=== PATIENT | female | born 1955 | race Caucasian/White ===

== ENCOUNTER 2021-12-13 12:30 | Inpatient (IN) ==
[2021-12-13 12:35] VITALS: BMI 21.1
[2021-12-13] MEDS ORDERED: NS 1,000 ML IV 1,000 ML IV ONE (12:36)
--- NOTE | 2021-12-13 12:36 | DR.DIZZY ---
HPI Time seen Time Seen by Provider: 12/13/21 12:35 PCP Primary Care Physician: GALILEO Complaint Chief Complaint Doctor Comments: 66 y/o female presents being ill x past 3-4 days. Started with a UTI. Now having frequent nausea, vomiting, diarrhea and g eneralized weakness. Denies fever, chills, abdominal pain. Very weak, can hardly stand up on her own. Chief Complaint:: PATIENT C/O N/V, SEVERE WEAKNESS, FEVER, AND HX OF RECENT UTI. COVID-19 Coronavirus risk:travel/contact w/high risk person: No Has patient experienced Coronavirus symptoms: Yes Coronavirus symptoms experienced: Fever Nurses Notes Reviewed Nurses Notes Review: Yes Source History Provided: Patient and Family Member Mode of Arrival Mode of Arrival: Wheelchair Timing Onset of Chief Complaint: 12/09/21 Context Stroke Symptoms: None PMH PMH Past Medical History: Yes Past Medical History: Migraines Past Surgical History: Yes Surgical History: Hysterectomy Family History History of Family Medical Conditions: Yes Family Medical History: Diabetes Mellitus and Hypertension Social History Does any household member use tobacco: No Alcohol Use: None Do you use any recreational Drugs:: No Lives With: Family Lives Where: Home Travel Risk Coronavirus risk:travel/contact w/high risk person: No Has patient experienced Coronavirus symptoms: Yes Coronavirus symptoms experienced: Fever Infectious screening In the last 2 months have you had wt loss of >10#?: NO Have you had fever, night sweats or hemotysis?: No Have you traveled outside the country in the last 6 months?: No Isolation: Standard ROS Review of Systems Constitutional: Weakness Eyes: No Symptoms Reported ENTM: No Symptoms Reported Respiratoy: No Symptoms Reported Cardiovascular: No Symptoms Reported Gastrointestinal/Abdominal: Diarrhea, Nausea and Vomiting Genitourinary: No Symptoms Reported Neurological: Weakness Musculoskeletal: No Symptoms Reported Integumentary: No Symptoms Reported Hematologic/Lymphatic: No Symptoms Reported Psychiatric: No Symptoms Reported All Other Systems: Reviewed and Negative PE Vital Signs Vitals: Temperature 98.9 F Pulse Rate 89 Respiratory Rate 56 Blood Pressure 89/55 O2 Sat by Pulse Oximetry 93 General General Appearance: Alert and In No Apparent Distress (appears very weak) Eyes Eye exam: PERRL and EOMI ENT ENT Exam: Normal Exam and Mucous Membranes Moist Neck Neck Exam: Normal Inspection Respiratory Respiratory Exam: Normal Lung Sounds Bilat; negative Accessory Muscle Use or Respiratory Distress Cardiovascular Cardiovascular Exam: Regular Rate, Normal Rhythm and Normal Heart Sounds Abdominal Exam Abdominal Exam: Normal Inspection, Normal Bowel Sounds and Soft; negative Tenderness Extremeties Extremities Exam: Normal Inspection; negative Edema Back Back Exam: negative (R) CVA Tenderness or (L) CVA Tenderness Neurologic Neurological Exam: Alert, Oriented X3, CN II-XII Intact and Other (+ weak in all exts.) COURSE Treatment Treatment: 66 y/o female was treated for UTI last week with cephalexin. Having persitent nausea, vomiting and diarrhea, with worsening generalized weakness. w/u initiated. Pt given IV fluids, IV zofran. U/a with TNTC WBCs. Given IV Rocephin. BP remaining low. Additional IV fluids given. Labs show elevated liver enzymes. GB US done, no acute abnormalities. Discussed with her attending, Dr Daigle. Will admit for complaicated UTI, elevated liver enzymes. Ordered HIDA scan with EF per his request. Will continue IV fluids, IV antibiotic. ROR Labs Reviewed Laboratory Results Reviewed?: Yes Result Diagrams: 12/18/21 05:45 12/18/21 05:45 Laboratory: 12/13/21 12:46 Urine,Catheterized Urine Culture - Final 12/13/21 15:45 Blood Blood Culture - Preliminary 12/13/21 15:30 Blood Blood Culture - Preliminary WBC 13.6 X10^3/uL (3.6-10.0) H 12/13/21 12:36 RBC 3.53 X10^6/uL (3.5-5.4) 12/13/21 12:36 Hgb 10.5 g/dL (12.0-16.0) L 12/13/21 12:36 Hct 30.2 % (36.0-47.0) L 12/13/21 12:36 MCV 85.5 fL (80.0-100.0) 12/13/21 12:36 MCH 29.7 pg (27.0-34.0) 12/13/21 12:36 MCHC 34.7 g/dL (33.0-35.0) 12/13/21 12:36 RDW 13.0 % (11.6-16.5) 12/13/21 12:36 Plt Count 210 X10^3/uL (150.0-450.0) 12/13/21 12:36 Plt Count Comment Adequate (ADEQUATE) 12/13/21 12:36 MPV 8.9 fL (7.4-11.0) 12/13/21 12:36 Neut % (Auto) 82.4 % (42.0-75.0) H 12/13/21 12:36 Lymph % (Auto) 3.2 % (21.0-51.0) L 12/13/21 12:36 Pacific % (Auto) 12.6 % (0.0-13.0) 12/13/21 12:36 Eos % (Auto) 0.6 % (0.9-2.9) L 12/13/21 12:36 Baso % (Auto) 1.2 % (0.2-1.0) H 12/13/21 12:36 Neut # (Auto) 11.2 x10^3/uL (2.2-4.8) H 12/13/21 12:36 Lymph # (Auto) 0.4 X10^3/uL (1.3-2.9) L 12/13/21 12:36 Pacific # (Auto) 1.7 x10^3/uL (0.3-0.8) H 12/13/21 12:36 Eos # (Auto) 0.1 x10^3/uL (0.0-0.2) 12/13/21 12:36 Baso # (Auto) 0.2 X10^3/uL (0.0-0.1) H 12/13/21 12:36 Absolute Nucleated RBC 0.0 /100WBC 12/13/21 12:36 Total Counted 100 12/13/21 12:36 Neutrophils % (Manual) 87 % (39-76) H 12/13/21 12:36 Band Neutrophils % 5 % (0-10) 12/13/21 12:36 Lymphocytes % (Manual) 4 % (13-43) L 12/13/21 12:36 Monocytes % (Manual) 4 % (4-9) 12/13/21 12:36 Plt Morphology Comment Normal (NORMAL) 12/13/21 12:36 RBC Morphology Normal (NORMAL) 12/13/21 12:36 Sodium 133 mmol/L (136-145) L 12/13/21 12:36 Corrected Sodium 134 mmol/L (136-145) L 12/13/21 12:36 Potassium 4.1 mmol/L (3.5-5.1) 12/13/21 12:36 Chloride 98 mmol/L (98-107) 12/13/21 12:36 Carbon Dioxide 24.1 mmol/L (21-32) 12/13/21 12:36 BUN 21 mg/dL (7-18) H 12/13/21 12:36 Creatinine 1.78 mg/dL (0.55-1.02) H 12/13/21 12:36 Est GFR (MDRD) Af Amer 37 (>60) L 12/13/21 12:36 Est GFR (MDRD) Non-Af 30 (>60) L 12/13/21 12:36 Glucose 134 mg/dL (65-99) H 12/13/21 12:36 Lactic Acid 1.7 mmol/L (0.4-2.0) 12/13/21 15:45 Calcium 8.6 mg/dL (8.5-10.1) 12/13/21 12:36 Corrected Calcium 9.6 mg/dL (8.5-10.1) 12/13/21 12:36 Total Bilirubin 0.90 mg/dL (0.2-1.0) 12/13/21 12:36 AST 394 Units/L (15-37) H 12/13/21 12:36 ALT 245 Units/L (12-78) H 12/13/21 12:36 Alkaline Phosphatase 260 Units/L (46-116) H 12/13/21 12:36 Total Protein 7.1 g/dL (6.4-8.2) 12/13/21 12:36 Albumin 2.8 g/dL (3.4-5.0) L 12/13/21 12:36 Globulin 4.3 g/dL (2.5-4.5) 12/13/21 12:36 Albumin/Globulin Ratio 0.7 Ratio (1.1-2.1) L 12/13/21 12:36 Lipase 49 Units/L (73-393) L 12/13/21 12:36 Specimen Type Catherized urine 12/13/21 12:46 Urine Color Yellow (YELLOW) 12/13/21 12:46 Urine Appearance Hazy (CLEAR) 12/13/21 12:46 Urine pH 6.5 (5.0 - 8.0) 12/13/21 12:46 Ur Specific [place] Ari 1.010 (1.000-1.030) 12/13/21 12:46 Urine Protein 3+ (NEGATIVE) 12/13/21 12:46 Urine Glucose (UA) Negative (NEGATIVE) 12/13/21 12:46 Urine Ketones 1+ (NEGATIVE) 12/13/21 12:46 Urine Blood 5+ (NEGATIVE) 12/13/21 12:46 Urine Nitrite Negative (NEGATIVE) 12/13/21 12:46 Urine Bilirubin Negative (NEGATIVE) 12/13/21 12:46 Urine Urobilinogen Normal (NORMAL) 12/13/21 12:46 Ur Leukocyte Esterase 3+ (NEGATIVE) 12/13/21 12:46 Urine RBC 5-10 /HPF (0-3) A 12/13/21 12:46 Urine WBC Tntc /HPF (0-5) A 12/13/21 12:46 Ur Squamous Epith Cells Few /HPF (NEGATIVE) 12/13/21 12:46 Urine Bacteria Trace /HPF (NEGATIVE) 12/13/21 12:46 Ur Culture Indicated? Yes/culture set up 12/13/21 12:46 SARS-CoV-2 (PCR) Negative (NEGATIVE) 12/13/21 12:46 Hepatitis A IgM Ab Negative (Negative) 12/13/21 12:36 Hep Bs Antigen Negative (Negative) 12/13/21 12:36 Hep Bs Ag Confirmation TNP 12/13/21 12:36 Hep B Core IgM Ab Negative (Negative) 12/13/21 12:36 Hepatitis C Ab Index <0.02 IV 12/13/21 12:36 Hepatitis C Interp Negative (Negative) 12/13/21 12:36 Hepatitis Interpret See note 12/13/21 12:36 Influenza Type A (PCR) Negative (NEGATIVE) 12/13/21 12:46 Influenza Type B (PCR) Negative (NEGATIVE) 12/13/21 12:46 RSV (PCR) Negative (NEGATIVE) 12/13/21 12:46 Opioid Opioid Risk Tool Age (Willy box if 16-45): No History of Preadolescent Sexual Abuse: No Total: 0 Total Score Risk Category: Low Risk Copyright: Ishmael VELASQUEZ predicting aberrant behaviors Discharge Plan Diagnosis Discharge Problem: Complicated urinary tract infection, Hypotension, Elevated liver enzymes Discharge Plan Patient Disposition: 09 ADMITTED INPATIENT Condition: Stable
[2021-12-13] MEDS ORDERED: ZOFRAN INJ 4 MG VIAL IVP ONE (12:37)
[2021-12-13] MEDS ORDERED: ZOFRAN INJ 4 MG VIAL ONE (12:46)
[2021-12-13] MEDS ORDERED: NS 1,000 ML IV 1,000 ML ONE (12:46)
[2021-12-13 12:50] LABS: BASOPHILS # (AUTO) 0.2 X10^3/uL (0.0-0.1); BASOPHILS % (AUTO) 1.2 % (0.2-1.0); EOSINOPHILS # (AUTO) 0.1 x10^3/uL (0.0-0.2); EOSINOPHILS % (AUTO) 0.6 % (0.9-2.9); HEMATOCRIT 30.2 % (36.0-47.0); HEMOGLOBIN 10.5 g/dL (12.0-16.0); LYMPHOCYTES # (AUTO) 0.4 X10^3/uL (1.3-2.9); LYMPHOCYTES % (AUTO) 3.2 % (21.0-51.0); MEAN CORPUSCULAR HEMOGLOBIN 29.7 pg (27.0-34.0); MEAN CORPUSCULAR HGB CONC 34.7 g/dL (33.0-35.0); MEAN CORPUSCULAR VOLUME 85.5 fL (80.0-100.0); MEAN PLATELET VOLUME 8.9 fL (7.4-11.0); MONOCYTES # (AUTO) 1.7 x10^3/uL (0.3-0.8); MONOCYTES % (AUTO) 12.6 % (0.0-13.0); NEUTROPHILS # (AUTO) 11.2 x10^3/uL (2.2-4.8); NEUTROPHILS % (AUTO) 82.4 % (42.0-75.0); RED BLOOD COUNT 3.53 X10^6/uL (3.5-5.4); WHITE BLOOD COUNT 13.6 X10^3/uL (3.6-10.0)
[2021-12-13 13:03] LABS: ALBUMIN 2.8 g/dL (3.4-5.0); CALCIUM 8.6 mg/dL (8.5-10.1); CARBON DIOXIDE 24.1 mmol/L (21-32); COR CA(FOR HYPOALB) 9.6 mg/dL (8.5-10.1); CREATININE 1.78 mg/dL (0.55-1.02); TOTAL PROTEIN 7.1 g/dL (6.4-8.2)
[2021-12-13 13:27] LABS: BILIRUBIN,URINE NEGATIVE (NEGATIVE); BLOOD/HEMOGLOBIN,URINE 5+ (NEGATIVE); GLUCOSE, URINE NEGATIVE (NEGATIVE); KETONES,URINE 1+ (NEGATIVE); LEUKOCYTE ESTERASE ,URINE 3+ (NEGATIVE); NITRITES,URINE NEGATIVE (NEGATIVE); PH,URINE 6.5 (5.0 - 8.0); PROTEIN,URINE 3+ (NEGATIVE); UROBILINOGEN,URINE NORMAL (NORMAL)
[2021-12-13 13:28] LABS: BAND NEUTROPHILS % 5 % (0-10); PLATELET MORPHOLOGY COMMENT NORMAL (NORMAL)
[2021-12-13 13:31] LABS: APPEARANCE,URINE HAZY (CLEAR); COLOR,URINE YELLOW (YELLOW)
[2021-12-13 13:32] LABS: BACTERIA,URINE TRACE /HPF (NEGATIVE); SQUAMOUS EPITHELIAL CELL,UR FEW /HPF (NEGATIVE)
[2021-12-13] MEDS ORDERED: ROCEPHIN 1 GRAM IV PREMIX 1 G/50 ML IV.SOLN. IV ONE (13:34)
[2021-12-13] MEDS ORDERED: ROCEPHIN VIAL 1 GRAM ONE (13:58)
[2021-12-13] MEDS ORDERED: NS 100 ML IV 100 ML ONE (13:58)
[2021-12-13] MEDS ORDERED: ROCEPHIN VIAL 1 GRAM 1 G in NS 100 ML IV 100 ML IV ONE (14:02)
--- NOTE | 2021-12-13 15:55 | US ---
HISTORYAbdominal pain and weaknessSTUDYGALL BLADDERCOMPARISONNo relevant prior studies available.TECHNIQUEGrayscale and color Doppler transabdominal images were reviewed.FINDINGSLiver: Normal echogenicity. No focal concerning parenchymal lesion identified. Right hepatic lobe measures 15.4 cm.Portal vein is patent with hepatopetal flow.Hepatic arteries patent.Hepatic vein is patent with hepatofugal flow.Gallbladder/Biliary ducts: No echogenic stones or sludge in the gallbladder.Gallbladder wall: 0.21 cmCommon bile duct: 0.41 cmRight kidney: measures: 11.0 x 5.2 x 5.1cm. Normal appearing parenchyma with no hydronephrosis or ureteral calculus. Resistive index measures 0.67. Cortex measures 1.2 cm.Pancreas: Visualized portion of the pancreatic head and body are unremarkable in appearance.IVC: Unremarkable.IMPRESSIONUnremarkable exam.Electronically signed by: Cecil Clifton (Dec 13, 2021 15:53:50)
--- NOTE | 2021-12-13 17:00 | RAD ---
HISTORYCOUGH ; WEAKNESS ^STUDYCHEST, 1 VIEWCOMPARISONFINDINGSThe trachea is midline. The cardiac silhouette is unremarkable. The lungs are clear without focal infiltrate or effusion. The bony thorax is unremarkable.IMPRESSIONNo acute cardiopulmonary findings .Electronically signed by: Kike Suarez (Dec 13, 2021 16:57:57)
[2021-12-13] MEDS: NS 1,000 ML IV 1,000 ML IV SCH (19:45)
[2021-12-13] MEDS: KLONOPIN TAB 1 MG PO SCH (20:43)
[2021-12-13] MEDS: LIPITOR TAB 20 MG PO SCH (20:43)
[2021-12-13] MEDS: NEURONTIN CAP 300 MG PO SCH (20:43)
[2021-12-13] MEDS: TYLENOL 325 MG TAB PO PRN (20:59)
[2021-12-13] MEDS ORDERED: PEPCID TAB 40 MG PO SCH (21:00)
[2021-12-14] MEDS: NS 1,000 ML IV 1,000 ML IV SCH ×3 (03:00→17:59)
[2021-12-14 06:36] LABS: BASOPHILS % (AUTO) 0.2 % (0.2-1.0); EOSINOPHILS % (AUTO) 0.1 % (0.9-2.9); HEMATOCRIT 28.7 % (36.0-47.0); HEMOGLOBIN 9.9 g/dL (12.0-16.0); LYMPHOCYTES # (AUTO) 0.6 X10^3/uL (1.3-2.9); LYMPHOCYTES % (AUTO) 4.3 % (21.0-51.0); MEAN CORPUSCULAR HEMOGLOBIN 29.3 pg (27.0-34.0); MEAN CORPUSCULAR HGB CONC 34.4 g/dL (33.0-35.0); MEAN CORPUSCULAR VOLUME 85.1 fL (80.0-100.0); MEAN PLATELET VOLUME 9.5 fL (7.4-11.0); MONOCYTES # (AUTO) 1.3 x10^3/uL (0.3-0.8); MONOCYTES % (AUTO) 8.7 % (0.0-13.0); NEUTROPHILS # (AUTO) 12.6 x10^3/uL (2.2-4.8); NEUTROPHILS % (AUTO) 86.7 % (42.0-75.0); RED BLOOD COUNT 3.37 X10^6/uL (3.5-5.4); RED CELL DISTRIBUTION WIDTH 12.8 % (11.6-16.5); WHITE BLOOD COUNT 14.6 X10^3/uL (3.6-10.0)
[2021-12-14 06:47] LABS: ALANINE AMINOTRANSFERASE 169 Units/L (12-78); ALBUMIN 2.4 g/dL (3.4-5.0); ALKALINE PHOSPHATASE 221 Units/L (46-116); ASPARTATE AMINO TRANSFERASE 145 Units/L (15-37); BLOOD UREA NITROGEN 25 mg/dL (7-18); CARBON DIOXIDE 20.9 mmol/L (21-32); CHLORIDE 100 mmol/L (98-107); COR CA(FOR HYPOALB) 9.3 mg/dL (8.5-10.1); CREATININE 2.12 mg/dL (0.55-1.02); SODIUM 133 mmol/L (136-145); TOTAL PROTEIN 6.5 g/dL (6.4-8.2); eGFR NON BLACK RACES 25 (>60)
[2021-12-14] MEDS: TYLENOL 325 MG TAB PO PRN ×2 (08:20→20:09)
[2021-12-14] MEDS ORDERED: ROCEPHIN VIAL 1 GRAM 1 G in NS 100 ML IV 100 ML IV SCH (09:00)
[2021-12-14] MEDS: PROTONIX TAB 40 MG PO SCH (09:49)
[2021-12-14] MEDS: NEURONTIN CAP 300 MG PO SCH ×3 (09:49→20:08)
--- NOTE | 2021-12-14 11:51 | NM ---
HISTORY: Abdominal pain. RUQ pain, nausea.EXAM: Nuclear Medicine HIDA ExamTechnique: Multiple scintigraphic images of the abdomen were obtained the intravenous administration of 5.6 mCi of technetium labeled [Choletec]. Following distention of the gallbladder with radiotracer a bottle of Ensure was given. An estimated gallbladder ejection fraction was calculated based on this physiologic response.Findings: Homogeneous uptake of radiotracer is seen throughout the liver. The intrabiliary ductal system is observed normally. The common hepatic and common bile duct grossly appear unremarkable with normal biliary-bowel transit. The gallbladder is observed to fill normally without evidence for acute cholecystitis. After the administration of ensure, however, an abnormally low gallbladder ejection fraction of 10% (normal > 35%) is observed. Although many etiologies (certain medications, cholangitis, pancreatitis, sepsis, etc.) can account for a low gallbladder ejection fraction, in the outpatient setting, the most common etiology is chronic cholecystitis.IMPRESSION:1. Hepatobiliary imaging study demonstrates no evidence for hepatic dysfunction, acute cholecystitis, or biliary leak/biloma formation.2. Low gallbladder ejection fraction of 10%, most likely reflecting chronic cholecystitis, as discussed above.Electronically signed by: FIDELIA DUMONT III (Dec 14, 2021 11:50:01)
[2021-12-14] MEDS: FIORICET TAB PO PRN (12:04)
--- NOTE | 2021-12-14 12:23 | DR.H&P ---
H&P - History & Physical for Day of: H&P Date: 12/13/21 - Chief Complaint Chief Complaint: NAUSEA, VOMITING, DIARRHEA, WEAKNESS - History of Present Illness History of Present Illness: IS A 66 YEAR OLD PATIENT OF OURS. SHE PRESENTED TO THE ER WITH COMPLAINTS OF FREQUENT NAUSEA, VOMITING, DIARRHEA, AND GENERALIZED WEAKNESS FOR THE PAST 3-4 DAYS. SHE WAS RECENTLY DIAGNOSED WITH A URINARY TRACT INFECTION AND WAS PRESCRIBED CEPHALEXIN 500MG TID. SHE STARTED TAKING IT ON 12/07/21. PATIENT REPORTS THAT WEAKNESS HAS WORSENED AND THAT SHE IS BARELY ABLE TO STAND UP ON HER OWN. HER PMH INCLUDES MIGRAINES, GERD, HYPERLIPIDEMIA, INSOMNIA, RESTLESS LEGS. ON ARRIVAL TO THE HOSPITAL, VITALS WERE 101.4-105-20-97%-103/52. LABS WERE OBTAINED. WBC 13.6, RBC 3.53, HGB 10.5, HCT 30.2, PLT COUNT 210, SODIUM 133, POTASSIUM 4.1, CHLORIDE 98, BUN 21, CREATININE 1.78, GLUCOSE 134, CALCIUM 8.6, TOTAL BILI 0.90, AST 394, ALT 245, ALK PHOS 260, TOTAL PROTEIN 7.1, ALBUMIN 2.8, LIPASE 49. URINALYSIS WAS OBTAINED AND REVEALED: WBC TNTC, RBC 5-10, LEUKOCYTES 3+, BACTERIA TRACE. HEPATITS PANEL ORDERED. COVID, INFLUENZA, AND RSV NEGATIVE. BLOOD AND URINE CULTURES WERE SET UP. A CHEST XRAY WAS OBTAINED AND REVEALED: No acute cardiopulmonary findings. GALLBLADDER ULTRASOUND WAS OBTAINED AND WAS UNREMARKABLE. IN THE ER, SHE WAS GIVEN A NORMAL SALINE BOLUS, ZOFRAN 4MG IV X 1 DOSE, ROCEPHIN 1G IV X 1, AND PEPCID 40MG PO X 1. SHE WAS ADMITTED TO THE HOSPITAL FOR FURTHER EVALUATION AND TREATMENT OF UTI, HYPOTENSION, AND ELEVATED LIVER ENZYMES. SHE WAS STARTED ON NORMAL SALINE AT 125 ML/HR, ROCEPHIN 1G IV DAILY, ZOFRAN 4MG IV Q6H PRN, FIORICET 2TABS PO Q8H PRN HEADACHES, AND HER HOME MEDICATIONS WERE RESUMED. WE PLAN TO OBTAIN A HIDA SCAN TODAY. OTHERWISE, WE PLAN TO FOLLOW-UP WITH AM LABS AND CONTINUE TO MONITOR. TIME SPENT ON CLINICAL ASSESSMENT, REVIWING LABS AND IMAGING, DECISION MAKING, AND DOCUMENTATION GREATER THAN 75 MINUTES. - Past Medical History Past Medical History: Dyslipidemia, Migraines, GERD Additional Medical History: RESTLESS LEGS - Past Surgical History Surgical History: Hysterectomy - Family History Family Medical History: Diabetes Mellitus - Social History Does patient currently use any type of tobacco product: No Have you used tobacco products in the last 12 months: No Type of Tobacco Use: None Does any household member use tobacco: No Alcohol Use: None Drug Use: None - Medications Home Medications: sulfamethoxazole [From Bactrim] Allergy (Verified 12/13/21 14:01) trimethoprim [From Bactrim] Allergy (Verified 12/13/21 14:01) CONTINUE taking the following medications alendronate 10 mg tablet 1 tab PO QDAY 12/13/21 [History] alfuzosin 10 mg tablet,extended release 24 hr 1 tab PO QDAY bladder pain 12/13/21 [History] atorvastatin 20 mg tablet 1 tab PO QPM 12/13/21 [History] cephalexin 500 mg capsule 1 cap PO TID 12/13/21 [History] clonazepam 1 mg tablet 1 tab PO QPM 12/13/21 [History] cyclobenzaprine 10 mg tablet 1 tab PO BID 12/13/21 [History] famotidine 40 mg tablet 1 tab PO QPM 12/13/21 [History] gabapentin 300 mg capsule 1 cap PO BID 12/13/21 [History] pantoprazole 40 mg tablet,delayed release 1 tab PO QDAY 12/13/21 [History] propranolol 20 mg tablet 1 tab PO BID 12/13/21 [History] - Review of Systems Constitutional: Fever, Weakness ENT: No Symptoms Reported Respiratory: No Symptoms Reported Gastrointestinal: Nausea, Vomiting, Abdominal Pain Genitourinary: No Symptoms Reported Musculoskeletal: No Symptoms Reported Skin: No Symptoms Reported Neurological: Weakness - Physical Exam Vital Signs: Temperature 98.6 F Pulse Rate [Left Brachial] 103 Pulse Rate 89 Respiratory Rate 20 Blood Pressure [Right Arm] 117/57 Blood Pressure 89/55 O2 Sat by Pulse Oximetry 93 Oriented: Normal Eyes: Normal Ear: Normal Nose: Normal Throat: Normal Respiratory: Diminished Throughout Cardiovascular: Tachycardia : Normal Auscultation: Bowel Sounds: Normal Palpation: Normal Tenderness: Diffuse Skin: Decreased Turgur Musculoskeletal: Normal Psychiatric: Normal Mood Description: Calm Affect: Normal Speech Pattern: Clear - Assessment/Plan (1) Complicated urinary tract infection Status: Acute Plan: ADMIT, NORMAL SALINE AT 125 ML/HR, ROCEPHIN 1G IV DAILY, ZOFRAN 4MG IV Q6H PRN, FIORICET 2TABS PO Q8H PRN HEADACHES, AND HER HOME MEDICATIONS WERE RESUMED. (2) Elevated liver enzymes Status: Acute Plan: OBTAIN HIDA SCAN (3) Hypotension Qualifiers: Hypotension type: unspecified hypotension type Qualified Code(s): I95.9 - Hypotension, unspecified Status: Acute (4) Headache Qualifiers: Headache type: unspecified Headache chronicity pattern: episodic headache Intractability: not intractable Qualified Code(s): R51.9 - Headache, unspecified Status: Acute - Allergies Allergies/Adverse Reactions: Allergies Allergy/AdvReac Type Severity Reaction Status Date / Time sulfamethoxazole Allergy Verified 12/13/21 14:01 [From Bactrim] trimethoprim [From Bactrim] Allergy Verified 12/13/21 14:01
[2021-12-14] MEDS: DEMEROL INJ IVP PRN (15:06)
[2021-12-14] MEDS: KLONOPIN TAB 1 MG PO SCH (20:09)
[2021-12-14] MEDS: LIPITOR TAB 20 MG PO SCH (20:09)
[2021-12-14] MEDS ORDERED: CIPRO IV 200 MG PREMIX* 200 MG/100 ML BAG IV SCH (21:00)
[2021-12-14] MEDS: ZOSYN VIAL 3.375 GRAMS 3.375 G in NS 100 ML IV 100 ML IV SCH ×2 (21:24→21:51)
[2021-12-14] MEDS: PEPCID TAB 20 MG PO SCH ×2 (21:24→21:27)
[2021-12-14] MEDS ORDERED: NS 100 ML IV 100 ML ONE (22:36)
[2021-12-14] MEDS ORDERED: ROCEPHIN VIAL 2 GRAMS ONE (22:36)
[2021-12-14] MEDS: ROCEPHIN VIAL 2 GRAMS 2 G in NS 100 ML IV 100 ML IV SCH (22:56)
--- NOTE | 2021-12-14 23:38 | CT ---
History: aloc HX: None.brSX: hysterectomyExam :BRAIN W/O CONTechnique: Thin section axial ct images of the brain were obtained from the foramen magnum to the vertex without contrast. Sagittal and coronal reconstructions were also performed.Comparison: NoneFindings:The ventricles are within normal limits in size. No midline shift, mass effect or extra-axial fluid collections. No evidence of acute hemorrhage or acute macroinfarction. Mild cortical atrophy compatible with patient's age. Decreased attenuation within the periventricular and subcortical white matter consistent with microvascular ischemic white matter changes.The visualized paranasal sinuses and mastoids are unremarkable. The calvarium is intact.Impression:Mild cortical atrophy with microvascular ischemic white matter changes.No acute intracranial pathology.Electronically signed by: Rajinder Brown (Dec 14, 2021 23:36:49)
[2021-12-15] MEDS: TYLENOL 325 MG TAB PO PRN ×2 (04:03→19:41)
[2021-12-15] MEDS: NS 1,000 ML IV 1,000 ML IV SCH ×3 (04:04→17:20)
[2021-12-15 05:36] LABS: BASOPHILS # (AUTO) 0.1 X10^3/uL (0.0-0.1); BASOPHILS % (AUTO) 0.5 % (0.2-1.0); EOSINOPHILS % (AUTO) 0.3 % (0.9-2.9); HEMATOCRIT 26.2 % (36.0-47.0); MEAN CORPUSCULAR HEMOGLOBIN 28.8 pg (27.0-34.0); MEAN CORPUSCULAR HGB CONC 34.3 g/dL (33.0-35.0); MEAN CORPUSCULAR VOLUME 83.9 fL (80.0-100.0); MONOCYTES # (AUTO) 1.2 x10^3/uL (0.3-0.8); NEUTROPHILS # (AUTO) 14.7 x10^3/uL (2.2-4.8); NEUTROPHILS % (AUTO) 86.2 % (42.0-75.0); RED BLOOD COUNT 3.12 X10^6/uL (3.5-5.4); RED CELL DISTRIBUTION WIDTH 13.6 % (11.6-16.5)
[2021-12-15] MEDS: ZOSYN VIAL 3.375 GRAMS 3.375 G in NS 100 ML IV 100 ML IV SCH ×3 (05:38→21:01)
[2021-12-15 05:51] LABS: LACTIC ACID 0.4 mmol/L (0.4-2.0)
[2021-12-15 05:56] LABS: ALANINE AMINOTRANSFERASE 102 Units/L (12-78); ALKALINE PHOSPHATASE 172 Units/L (46-116); ASPARTATE AMINO TRANSFERASE 67 Units/L (15-37); BLOOD UREA NITROGEN 25 mg/dL (7-18); CALCIUM 7.7 mg/dL (8.5-10.1); CARBON DIOXIDE 18.9 mmol/L (21-32); CHLORIDE 106 mmol/L (98-107); COR CA(FOR HYPOALB) 9.3 mg/dL (8.5-10.1); CREATININE 2.04 mg/dL (0.55-1.02); SODIUM 138 mmol/L (136-145); TOTAL PROTEIN 6.1 g/dL (6.4-8.2); eGFR NON BLACK RACES 26 (>60)
[2021-12-15] MEDS: PROTONIX TAB 40 MG PO SCH (08:29)
[2021-12-15] MEDS: NEURONTIN CAP 300 MG PO SCH ×2 (08:29→20:26)
[2021-12-15] MEDS: ROCEPHIN VIAL 2 GRAMS 2 G in NS 100 ML IV 100 ML IV SCH (08:30)
[2021-12-15] MEDS: RIZATRIPTAN 10 MG SL PRN ×2 (09:34→16:10)
[2021-12-15] MEDS ORDERED: LOVENOX INJ 40 MG SYR SC SCH (10:00)
[2021-12-15] MEDS: LOVENOX INJ 30 MG SYR SC SCH (10:43)
[2021-12-15 12:43] LABS: BILIRUBIN,URINE NEGATIVE (NEGATIVE); BLOOD/HEMOGLOBIN,URINE 4+ (NEGATIVE); GLUCOSE, URINE NEGATIVE (NEGATIVE); KETONES,URINE NEGATIVE (NEGATIVE); LEUKOCYTE ESTERASE ,URINE 3+ (NEGATIVE); NITRITES,URINE NEGATIVE (NEGATIVE); PROTEIN,URINE 2+ (NEGATIVE); UROBILINOGEN,URINE NORMAL (NORMAL)
[2021-12-15 12:59] LABS: APPEARANCE,URINE CLEAR (CLEAR); COLOR,URINE STRAW (YELLOW)
[2021-12-15 13:00] LABS: SQUAMOUS EPITHELIAL CELL,UR FEW /HPF (NEGATIVE)
[2021-12-15 13:01] LABS: BACTERIA,URINE TRACE /HPF (NEGATIVE)
--- NOTE | 2021-12-15 14:01 | CT ---
HISTORYELEVATED LFTS, FEVERSTUDYABDOMEN/PELVIS W/O [id number] images of the abdomen and pelvis were obtained without contrast dose reduction techniques including Automated Exposure Control (AEC) and adjustment of mA and kV were utilized.FINDINGSThere are small layering bilateral pleural effusions with associated basilar atelectasis. No acute osseous abnormality.Evaluation the abdominal pelvic viscera is limited without contrast. Gallbladder appears mildly distended with questionable wall thickening. No radiopaque cholelithiasis can be identified. Within study limitations, the liver, spleen, stomach, pancreas, and adrenals are grossly unremarkable. There is moderate to severe bilateral hydroureteronephrosis to the level of the urinary bladder, which is distended. There are grossly stable small bilateral renal collecting system stones, although no obstructing ureteral calculus is identified. No marked thickening or dilatation of the lower GI tract can be identified. There is bilateral perinephric fat stranding and trace fluid tracking caudally in the retroperitoneum. There is small volume layering pelvic free fluid. No organizing collection identified. The uterus is not identified. The rectum is unremarkable. No bulky adenopathy.IMPRESSIONUrinary bladder distention with bilateral hydroureteronephrosis.Mild gallbladder distention with questionable wall thickening. No radiopaque cholelithiasis is identified. Consider right upper quadrant ultrasound or HIDA if there is concern for acute cholecystitis.Small bilateral pleural effusions, nonobstructing bilateral nephrolithiasis, and other findings as above.Electronically signed by: RAMIRO ALMANZA (Dec 15, 2021 13:59:23)
--- NOTE | 2021-12-15 14:18 | RAD ---
HISTORYCONGESTION, COUGH Relevant Clinical InformationSTUDYCHEST, 1 [id number]/2022.FINDINGSThe trachea is midline. The cardiac silhouette is unremarkable. There are mild nonspecific bibasilar opacities. There is no definite pleural effusion. The bony thorax is unremarkable.IMPRESSIONMild nonspecific basilar opacities which could be atelectasis or potentially infection.Electronically signed by: Kike Suarez (Dec 15, 2021 14:16:24)
[2021-12-15] MEDS: KLONOPIN TAB 1 MG PO SCH (20:26)
[2021-12-15] MEDS: PEPCID TAB 20 MG PO SCH (20:26)
[2021-12-15] MEDS: DEMEROL INJ IVP PRN (20:26)
[2021-12-15] MEDS: LIPITOR TAB 20 MG PO SCH (20:26)
[2021-12-16] MEDS: NS 1,000 ML IV 1,000 ML IV SCH ×3 (02:00→18:05)
[2021-12-16] MEDS: FIORICET TAB PO PRN (03:51)
[2021-12-16] MEDS: ZOSYN VIAL 3.375 GRAMS 3.375 G in NS 100 ML IV 100 ML IV SCH ×3 (05:29→21:06)
[2021-12-16 05:44] LABS: BASOPHILS % (AUTO) 0.4 % (0.2-1.0); EOSINOPHILS # (AUTO) 0.2 x10^3/uL (0.0-0.2); EOSINOPHILS % (AUTO) 1.9 % (0.9-2.9); HEMATOCRIT 24.6 % (36.0-47.0); HEMOGLOBIN 8.5 g/dL (12.0-16.0); LYMPHOCYTES # (AUTO) 1.2 X10^3/uL (1.3-2.9); LYMPHOCYTES % (AUTO) 10.1 % (21.0-51.0); MEAN CORPUSCULAR HGB CONC 34.6 g/dL (33.0-35.0); MEAN CORPUSCULAR VOLUME 83.9 fL (80.0-100.0); MONOCYTES # (AUTO) 1.2 x10^3/uL (0.3-0.8); MONOCYTES % (AUTO) 10.4 % (0.0-13.0); NEUTROPHILS # (AUTO) 9.2 x10^3/uL (2.2-4.8); NEUTROPHILS % (AUTO) 77.2 % (42.0-75.0); RED BLOOD COUNT 2.93 X10^6/uL (3.5-5.4); RED CELL DISTRIBUTION WIDTH 13.9 % (11.6-16.5); WHITE BLOOD COUNT 11.9 X10^3/uL (3.6-10.0)
[2021-12-16 05:51] LABS: BLOOD UREA NITROGEN 13 mg/dL (7-18); CALCIUM 7.6 mg/dL (8.5-10.1); CARBON DIOXIDE 22.7 mmol/L (21-32); CHLORIDE 110 mmol/L (98-107); CREATININE 1.15 mg/dL (0.55-1.02); SODIUM 142 mmol/L (136-145); eGFR NON BLACK RACES 50 (>60)
[2021-12-16] MEDS ORDERED: POTASSIUM CHL 60 MEQ/NS 0.45% 500 ML IV PRN (06:23)
[2021-12-16] MEDS ORDERED: MICRO K EXTEN CAP 10 MEQ PO PRN (06:23)
[2021-12-16] MEDS ORDERED: K-RIDER 10 MEQ/NS 100 ML 10 MEQ/100 ML BAG IV PRN (06:23)
[2021-12-16] MEDS ORDERED: POTASSIUM CHL 40 MEQ/NS 0.45% 500 ML IV PRN (06:23)
[2021-12-16] MEDS: NEURONTIN CAP 300 MG PO SCH ×2 (08:37→20:43)
[2021-12-16] MEDS: PROTONIX TAB 40 MG PO SCH (08:37)
[2021-12-16] MEDS: ROCEPHIN VIAL 2 GRAMS 2 G in NS 100 ML IV 100 ML IV SCH (08:38)
[2021-12-16] MEDS: LOVENOX INJ 30 MG SYR SC SCH (08:42)
[2021-12-16] MEDS ORDERED: LASIX IVP SCH (11:00)
[2021-12-16] MEDS ORDERED: K-DUR TAB 20 MEQ PO SCH (11:00)
--- NOTE | 2021-12-16 11:33 | CT ---
HISTORYSOBSTUDYCTA CHESTCOMPARISONNoneTECHNIQUECT images of the chest were obtained after IV contrast administration per protocol. Automatic exposure control was utilized. MIP images provided and reviewed.FINDINGSUpper abdomen is grossly unremarkable. No acute osseous abnormality.The heart size is normal without significant pericardial thickening or pericardial effusion. No bulky intrathoracic adenopathy identified. The thoracic aorta is normal in caliber. No pulmonary arterial filling defect is identified. There are small layering bilateral pleural effusions with associated partial compressive atelectasis of the lower lobes. There is peribronchial thickening of the lower lobes without significant associated infiltrate. The large airways are patent. No pneumothorax.IMPRESSIONSmall bilateral pleural effusions with partial compressive atelectasis of the lower lobes. Findings of bilateral lower lobe bronchitis.No evidence for PTE.Electronically signed by: RAMIRO ALMANZA (Dec 16, 2021 11:31:35)
[2021-12-16] MEDS: ROBITUSSIN DM PO SCH ×3 (13:46→20:43)
[2021-12-16] MEDS: ZOFRAN INJ 4 MG VIAL IVP PRN (15:26)
[2021-12-16] MEDS: TYLENOL 325 MG TAB PO PRN (16:30)
[2021-12-16] MEDS: PEPCID TAB 20 MG PO SCH (20:43)
[2021-12-16] MEDS: KLONOPIN TAB 1 MG PO SCH (20:43)
[2021-12-16] MEDS: LIPITOR TAB 20 MG PO SCH (20:43)
[2021-12-16 22:25] LABS: ALANINE AMINOTRANSFERASE 83 Units/L (12-78); ALBUMIN 1.8 g/dL (3.4-5.0); ALKALINE PHOSPHATASE 166 Units/L (46-116); ASPARTATE AMINO TRANSFERASE 51 Units/L (15-37); COR CA(FOR HYPOALB) 9.4 mg/dL (8.5-10.1); TOTAL PROTEIN 5.7 g/dL (6.4-8.2)
[2021-12-16] MEDS: DEMEROL INJ IVP PRN (23:30)
[2021-12-17] MEDS: NS 1,000 ML IV 1,000 ML IV SCH ×4 (02:21→18:38)
[2021-12-17] MEDS: ZOSYN VIAL 3.375 GRAMS 3.375 G in NS 100 ML IV 100 ML IV SCH ×3 (05:03→21:50)
[2021-12-17 05:04] LABS: BASOPHILS # (AUTO) 0.1 X10^3/uL (0.0-0.1); BASOPHILS % (AUTO) 0.5 % (0.2-1.0); EOSINOPHILS # (AUTO) 0.3 x10^3/uL (0.0-0.2); EOSINOPHILS % (AUTO) 2.9 % (0.9-2.9); HEMATOCRIT 25.6 % (36.0-47.0); HEMOGLOBIN 8.9 g/dL (12.0-16.0); LYMPHOCYTES # (AUTO) 1.2 X10^3/uL (1.3-2.9); LYMPHOCYTES % (AUTO) 10.8 % (21.0-51.0); MEAN CORPUSCULAR HEMOGLOBIN 28.9 pg (27.0-34.0); MEAN CORPUSCULAR HGB CONC 34.7 g/dL (33.0-35.0); MEAN CORPUSCULAR VOLUME 83.2 fL (80.0-100.0); MEAN PLATELET VOLUME 8.8 fL (7.4-11.0); MONOCYTES # (AUTO) 1.2 x10^3/uL (0.3-0.8); MONOCYTES % (AUTO) 10.8 % (0.0-13.0); NEUTROPHILS # (AUTO) 8.6 x10^3/uL (2.2-4.8); RED BLOOD COUNT 3.08 X10^6/uL (3.5-5.4); RED CELL DISTRIBUTION WIDTH 13.8 % (11.6-16.5); WHITE BLOOD COUNT 11.4 X10^3/uL (3.6-10.0)
[2021-12-17 05:13] LABS: MAGNESIUM 1.3 mg/dL (2.0-2.9)
[2021-12-17 05:30] LABS: BLOOD UREA NITROGEN 12 mg/dL (7-18); CALCIUM 8.2 mg/dL (8.5-10.1); CHLORIDE 105 mmol/L (98-107); CREATININE 1.07 mg/dL (0.55-1.02); SODIUM 140 mmol/L (136-145); eGFR NON BLACK RACES 55 (>60)
[2021-12-17] MEDS: KLOR-CON PO PRN (05:42)
[2021-12-17 05:46] LABS: ALANINE AMINOTRANSFERASE 94 Units/L (12-78); ALKALINE PHOSPHATASE 263 Units/L (46-116); ASPARTATE AMINO TRANSFERASE 82 Units/L (15-37); COR CA(FOR HYPOALB) 9.8 mg/dL (8.5-10.1); TOTAL PROTEIN 6.5 g/dL (6.4-8.2)
[2021-12-17 06:16] LABS: HEPATITIS B SURFACE ANTIGEN Negative (Negative)
[2021-12-17] MEDS: TYLENOL 325 MG TAB PO PRN (08:25)
[2021-12-17] MEDS: ROCEPHIN VIAL 2 GRAMS 2 G in NS 100 ML IV 100 ML IV SCH (08:26)
[2021-12-17] MEDS: PROTONIX TAB 40 MG PO SCH (08:26)
[2021-12-17] MEDS: ROBITUSSIN DM PO SCH ×4 (08:26→20:42)
[2021-12-17] MEDS: LOVENOX INJ 30 MG SYR SC SCH (08:27)
--- NOTE | 2021-12-17 09:02 | RAD ---
HISTORYShortness of BreathSTUDYCHEST x-ray, 1 VIEWCOMPARISONX-ray 12/15/2021FINDINGSProbable CHF and small pleural effusions. Areas of atelectasis are seen bilaterally. Patient is rotated to the right.IMPRESSIONProbable CHF and small pleural effusions.Electronically signed by: Justice Staton (Dec 17, 2021 09:01:12)
[2021-12-17] MEDS: XOPENEX 1.25 MG/3 ML NEBULE NEB SCH ×4 (09:20→20:25)
[2021-12-17] MEDS: CIPRO IV 400 MG PREMIX* 400 MG/200 ML IV.SOLN. IV SCH ×2 (10:01→20:42)
[2021-12-17] MEDS ORDERED: NS 100 ML IV 100 ML ONE (11:35)
[2021-12-17] MEDS: MAGNESIUM SULFATE 1 GRAM/100 mL PREMIX 1 G/100 ML BAG IV PRN ×2 (12:04→13:26)
--- NOTE | 2021-12-17 12:55 | CT ---
HISTORYUTI, ELEVATED WBC, ELEVATED LFTSSTUDYABDOMEN/PELVIS WITH CONCOMPARISONCT abdomen and pelvis 12/15/2021TECHNIQUEMultiple CT axial images of the abdomen and pelvis were obtained without IV contrast. Coronal and sagittal images were reconstructed. Dose reduction techniques included Automated Exposure Control (AEC) and adjustment of mA and kV.FINDINGSHeart size normal. Small bilateral effusions are present associated with atelectasis.Liver, gallbladder, spleen, adrenal glands, and pancreas are unremarkable.Small calcified stones are present in the left and right kidney.Renal enhancement is symmetric with no solid mass. There is no hydronephrosis or significant perirenal edema. Urinary bladder is contracted around a Mcfadden balloon catheter.The hydroureteronephrosis that was present on the prior study has nearly resolved.The bowel is not dilated. There is no wall thickening in the bowel or edema around the bowel.Small volume free fluid noted in the pelvis.Degenerative changes are present in the spine.IMPRESSION1. Resolved hydroureteronephrosis2. Nonobstructing renal calculiElectronically signed by: Eduardo Falcon (Dec 17, 2021 12:53:23)
--- NOTE | 2021-12-17 13:11 | PCM.PROG ---
Progress Note - Progress Note for Day of Date of Exam: 12/17/21 - Subjective Subjective: WAS ADMITTED FOR TREATEMENT OF UTI, ACUTE RENAL FAILURE, ELEVATED LIVER ENZYMES, HYPOTENSION. SHE HAD A GALLBLADDER WORK-UP WHICH REVEALED A LOW EJECTION FRACTION. WE CONSULTED GENERAL SURGERY, HOWEVER, DID NOT FEEL THAT SURGICAL INTERVENTION WAS WARRANTED AT THE PRESENT TIME. HE FELT THAT HER SYMPTOMS WERE PROBABLY RELATED TO UTI AND INFECTION RATHER THAN THE GALLBLADDER. SHE HAS REMAINED FEBRILE OVER THE WEEKEND. TODAY, SHE IS ALERT AND ORIENTED, LYING IN BED ON MORNING ROUNDS. SHE CONTINUES WITH COMPLAINTS OF GENERALIZED WEAKNESS, SHORTNESS OF BREATH, AND SOME ABDOMINAL DISCOMFORT. ON EXAMINATION, HEART WAS REGULAR IN RATE AND RHYTHM. BILATERAL LUNGS WERE NOTED WITH DIMINISHED LUNG SOUNDS THROUGHOUT. ABDOMEN WAS ROUND, SOFT, AND NOTED WITH SUPRAPUBIC TENDERNESS. HYPOACTIVE BOWEL SOUNDS WERE NOTED. NO UPPER OR LOWER EXTREMITY EDEMA WAS NOTED. HER VITALS THIS MORNING WERE: 99.0-100-20-94%-130/76. LABS WERE OBTAINED. WBC 11.4, RBC 3.08, HGB 8.9, HCT 25.6, SODIUM 140, POTASSIUM 3.2, CHLORIDE 105, BUN 12, CREATININE 1.07, GLUCOSE 89, CALCIUM 8.2, AST 82, ALT 94, ALK PHOS 263, CRP 235.40, TOTAL PROTEIN 6.5, ALBUMIN 2.0. BLOOD AND URINE CULTURES WERE PENDING. AN ABDOMEN/PELVIS CT WITHOUT CONTRAST WAS OBTAINED ON FRIDAY. IT REVEALED: Urinary bladder distention with bilateral hydroureteronephrosis. Mild gallbladder distention with questionable wall thickening. No radiopaque cholelithiasis is identified. Small bilateral pleural effusions, nonobstructing bilateral nephrolithiasis. CHEST CTA OBTAINED YESTERDAY AND REVEALED: Small bilateral pleural effusions with partial compressive atelectasis of the lower lobes. Findings of bilateral lower lobe bronchitis. No evidence for PTE. SHE IS CURRENTLY RECEIVING NORMAL SALINE AT 125 ML/HR, ROCEPHIN 2G IV DAILY, ZOSYN 3.375G IV TID, THE POTASSIUM AND MAGNESIUM PROTOCOLS, LOVENOX 30MG SC DAILY, ROBITUSSIN 10ML PO QID, ZOFRAN 4MG IV Q6H PRN, FIORICET 2TABS PO Q8H PRN HEADACHES, AND HER HOME MEDICATIONS WERE RESUMED. TODAY, WE WILL DISCONTINUE THE ROCEPHIN AND START CIPRO 400MG IV Q12H. WE WILL ALSO ADD XOPENEX NEB TX QID. WE WILL REPEAT AN ABDOMEN/PELVIS CT WITH CONTRAST. OTHERWISE, WE PLAN TO FOLLOW-UP WITH AM LABS AND CHEST XRAY AND CONTINUE TO MONITOR. TIME SPENT ON CLINICAL ASSESSMENT, REVIWING LABS AND IMAGING, DECISION MAKING, AND DOCUMENTATION GREATER THAN 45 MINUTES. - Past Medical Family Social History Past Med/Fam/Surg Hx: No changes since H&P Allergies: Allergies sulfamethoxazole [From Bactrim] Allergy (Verified 12/13/21 14:01) trimethoprim [From Bactrim] Allergy (Verified 12/13/21 14:01) - Review of Systems ROS: No change since H&P - Vital Signs and I&O's Vital Signs: Temperature 97.8 F Pulse Rate [Left Brachial] 96 Pulse Rate 89 Respiratory Rate 18 Blood Pressure [Right Arm] 121/67 Blood Pressure 89/55 O2 Sat by Pulse Oximetry 96 Intake and Output: Intake & Output 12/15/21 12/16/21 12/17/21 12/18/21 11:59 11:59 11:59 11:59 Intake Total 3495 / 3495 3787 / 3787 2001 Output Total 2550 / 2550 4825 / 4825 Balance 3495 / 3495 1237 / 1237 -2823 / -2823 - Physical Exam Oriented: Normal Eyes: Normal Ear: Normal Nose: Normal Throat: Normal Respiratory: Generalized, Diminished Cardiovascular: Normal : Normal Auscultation: Bowel Sounds: Decreased Palpation: Normal Tenderness: Suprapubic Skin: Decreased Turgur Musculoskeletal: Normal Psychiatric: Normal Mood Description: Calm Affect: Normal Speech Pattern: Clear - Laboratory and Diagnostics Result Diagrams: 12/17/21 04:35 12/17/21 04:35 Labs: 12/15/21 12:00 Urine,Catheterized Urine Culture - Final 12/13/21 15:45 Blood Blood Culture - Preliminary 12/13/21 15:30 Blood Blood Culture - Preliminary 12/13/21 12:46 Urine,Catheterized Urine Culture - Preliminary Laboratory WBC 11.4 X10^3/uL (3.6-10.0) H 12/17/21 04:35 RBC 3.08 X10^6/uL (3.5-5.4) L 12/17/21 04:35 Hgb 8.9 g/dL (12.0-16.0) L 12/17/21 04:35 Hct 25.6 % (36.0-47.0) L 12/17/21 04:35 MCV 83.2 fL (80.0-100.0) 12/17/21 04:35 MCH 28.9 pg (27.0-34.0) 12/17/21 04:35 MCHC 34.7 g/dL (33.0-35.0) 12/17/21 04:35 RDW 13.8 % (11.6-16.5) 12/17/21 04:35 Plt Count 215 X10^3/uL (150.0-450.0) 12/17/21 04:35 Plt Count Comment Adequate (ADEQUATE) 12/13/21 12:36 MPV 8.8 fL (7.4-11.0) 12/17/21 04:35 Neut % (Auto) 75.0 % (42.0-75.0) 12/17/21 04:35 Lymph % (Auto) 10.8 % (21.0-51.0) L 12/17/21 04:35 [place] % (Auto) 10.8 % (0.0-13.0) 12/17/21 04:35 Eos % (Auto) 2.9 % (0.9-2.9) 12/17/21 04:35 Baso % (Auto) 0.5 % (0.2-1.0) 12/17/21 04:35 Neut # (Auto) 8.6 x10^3/uL (2.2-4.8) H 12/17/21 04:35 Lymph # (Auto) 1.2 X10^3/uL (1.3-2.9) L 12/17/21 04:35 [place] # (Auto) 1.2 x10^3/uL (0.3-0.8) H 12/17/21 04:35 Eos # (Auto) 0.3 x10^3/uL (0.0-0.2) H 12/17/21 04:35 Baso # (Auto) 0.1 X10^3/uL (0.0-0.1) 12/17/21 04:35 Absolute Nucleated RBC 0.0 /100WBC 12/17/21 04:35 Total Counted 100 12/13/21 12:36 Neutrophils % (Manual) 87 % (39-76) H 12/13/21 12:36 Band Neutrophils % 5 % (0-10) 12/13/21 12:36 Lymphocytes % (Manual) 4 % (13-43) L 12/13/21 12:36 Monocytes % (Manual) 4 % (4-9) 12/13/21 12:36 Plt Morphology Comment Normal (NORMAL) 12/13/21 12:36 RBC Morphology Normal (NORMAL) 12/13/21 12:36 D-Dimer 6.46 ug/ml (0.0-0.57) H 12/15/21 13:10 Sodium 140 mmol/L (136-145) 12/17/21 04:35 Corrected Sodium TNP 12/17/21 04:35 Potassium 3.2 mmol/L (3.5-5.1) L 12/17/21 04:35 Chloride 105 mmol/L (98-107) 12/17/21 04:35 Carbon Dioxide 24.0 mmol/L (21-32) 12/17/21 04:35 BUN 12 mg/dL (7-18) 12/17/21 04:35 Creatinine 1.07 mg/dL (0.55-1.02) H 12/17/21 04:35 Est GFR (MDRD) Af Amer > 60 (>60) 12/17/21 04:35 Est GFR (MDRD) Non-Af 55 (>60) L 12/17/21 04:35 Glucose 89 mg/dL (65-99) 12/17/21 04:35 Lactic Acid 0.4 mmol/L (0.4-2.0) 12/15/21 05:21 Calcium 8.2 mg/dL (8.5-10.1) L 12/17/21 04:35 Corrected Calcium 9.8 mg/dL (8.5-10.1) 12/17/21 04:35 Magnesium 1.3 mg/dL (2.0-2.9) L 12/17/21 04:35 Total Bilirubin 0.50 mg/dL (0.2-1.0) 12/17/21 04:35 AST 82 Units/L (15-37) H 12/17/21 04:35 ALT 94 Units/L (12-78) H 12/17/21 04:35 Alkaline Phosphatase 263 Units/L (46-116) H 12/17/21 04:35 Ammonia < 10 umol/L (11-32) L 12/14/21 07:26 Creatine Kinase 477 Units/L (26-192) H 12/15/21 13:10 Troponin I High Sens 27.3 ng/L (4.0-60.0) 12/15/21 13:10 C-Reactive Protein 235.40 mg/L (0-3.0) H 12/17/21 04:35 Total Protein 6.5 g/dL (6.4-8.2) 12/17/21 04:35 Albumin 2.0 g/dL (3.4-5.0) L 12/17/21 04:35 Globulin 4.5 g/dL (2.5-4.5) 12/17/21 04:35 Albumin/Globulin Ratio 0.4 Ratio (1.1-2.1) L 12/17/21 04:35 Lipase 49 Units/L (73-393) L 12/13/21 12:36 Specimen Type Catherized urine 12/15/21 12:00 Urine Color Straw (YELLOW) 12/15/21 12:00 Urine Appearance Clear (CLEAR) 12/15/21 12:00 Urine pH 6.0 (5.0 - 8.0) 12/15/21 12:00 Ur Specific [place] 1.010 (1.000-1.030) 12/15/21 12:00 Urine Protein 2+ (NEGATIVE) 12/15/21 12:00 Urine Glucose (UA) Negative (NEGATIVE) 12/15/21 12:00 Urine Ketones Negative (NEGATIVE) 12/15/21 12:00 Urine Blood 4+ (NEGATIVE) 12/15/21 12:00 Urine Nitrite Negative (NEGATIVE) 12/15/21 12:00 Urine Bilirubin Negative (NEGATIVE) 12/15/21 12:00 Urine Urobilinogen Normal (NORMAL) 12/15/21 12:00 Ur Leukocyte Esterase 3+ (NEGATIVE) 12/15/21 12:00 Urine RBC 3-5 /HPF (0-3) A 12/15/21 12:00 Urine WBC Tntc /HPF (0-5) A 12/15/21 12:00 Ur Squamous Epith Cells Few /HPF (NEGATIVE) 12/15/21 12:00 Urine Bacteria Trace /HPF (NEGATIVE) 12/15/21 12:00 Ur Culture Indicated? Yes/culture set up 12/15/21 12:00 SARS-CoV-2 (PCR) Negative (NEGATIVE) 12/13/21 12:46 Hepatitis A IgM Ab Negative (Negative) 12/13/21 12:36 Hep Bs Antigen Negative (Negative) 12/13/21 12:36 Hep Bs Ag Confirmation TNP 12/13/21 12:36 Hep B Core IgM Ab Negative (Negative) 12/13/21 12:36 Hepatitis C Ab Index <0.02 IV 12/13/21 12:36 Hepatitis C Interp Negative (Negative) 12/13/21 12:36 Hepatitis Interpret See note 12/13/21 12:36 Influenza Type A (PCR) Negative (NEGATIVE) 12/13/21 12:46 Influenza Type B (PCR) Negative (NEGATIVE) 12/13/21 12:46 RSV (PCR) Negative (NEGATIVE) 12/13/21 12:46 - Plan (1) Complicated urinary tract infection Status: Acute Plan: NORMAL SALINE AT 125 ML/HR, CIPRO 400MG IV Q12H, ZOSYN 3.375G IV TID, THE POTASSIUM AND MAGNESIUM PROTOCOLS, LOVENOX 30MG SC DAILY, ROBITUSSIN 10ML PO QID, ZOFRAN 4MG IV Q6H PRN, FIORICET 2TABS PO Q8H PRN HEADACHES, AND HER HOME MEDICATIONS WERE RESUMED. (2) Acute bronchitis Status: Acute Qualifiers: Bronchitis organism: unspecified organism Qualified Code(s): J20.9 - Acute bronchitis, unspecified (3) Pleural effusion Status: Acute (4) Elevated liver enzymes Status: Acute (5) Hypotension Status: Resolved Qualifiers: Hypotension type: unspecified hypotension type Qualified Code(s): I95.9 - Hypotension, unspecified (6) Headache Status: Resolved Qualifiers: Headache type: unspecified Headache chronicity pattern: episodic headache Intractability: not intractable Qualified Code(s): R51.9 - Headache, unspecified
--- NOTE | 2021-12-17 17:40 | PCM.PROG ---
Progress Note - Progress Note for Day of Date of Exam: 12/16/21 - Subjective Subjective: he patient is a 66-year-old white female who is a patient of Dr. Mckeon, who was an ER admission after presenting with complaints of nausea, vomiting, diarrhea, and generalized weakness for several days with reports of diagnosis of a UTI and had been on p.o. Keflex with symptoms starting prior to 12/07/2021. She started taking Keflex at that time. Her condition worsened and she was admitted. Upon arrival, the patient was diagnosed with a UTI, elevated liver enzymes, hypotension, and complaints of headache, as well as acute renal insufficiency. She had blood cultures and urine cultures on admission. The nursing staff report she had some confusion last night. A CT of the brain was obtained showing mild cortical atrophy with microvascular changes. No signs of any acute intracranial pathology. The patient was noted to be febrile at this time, and repeat blood cultures were obtained then. She is currently on Rocephin 2 grams IV daily, as well as Zosyn. The patient was suspected to have some gallbladder dysfunction. Dr. Chapa consulted on that this morning. He ordered a CT of the abdomen and pelvis without contrast due to her normal GFR, which revealed bilateral hydronephrosis. Pt had insertion of evans catheter with ~900cc outpt. Upon assessment this morning, the patient seemed to be tachypneic, but she was oriented to self and situation. We decreased he NS to 50cc/hr since renal function returned to basline. She has bilaeral pleural effusions and was given one time dose of IV lasix with oral potassium replacement. Pt had an abnormal D-Dimer, and CTA of lungs without any PEs. At the time, family was at bedside and we reviewed labs with her. The patient was tachycardiac, had an occasional irregular beat with no known history of that, and the patient has not previously had a cardiac workup per family. She denied any chest pain, but did have obvious tachypnea. We ordered an ECHO for Friday. - Past Medical Family Social History Past Med/Fam/Surg Hx: No changes since H&P Allergies: Allergies sulfamethoxazole [From Bactrim] Allergy (Verified 12/13/21 14:01) trimethoprim [From Bactrim] Allergy (Verified 12/13/21 14:01) - Review of Systems ROS: No change since H&P - Vital Signs and I&O's Vital Signs: Temperature 97.6 F Pulse Rate [Left Brachial] 89 Pulse Rate 89 Respiratory Rate 20 Blood Pressure [Right Arm] 114/58 Blood Pressure 89/55 O2 Sat by Pulse Oximetry 97 Intake and Output: Intake & Output 12/15/21 12/16/21 12/17/21 12/18/21 11:59 11:59 11:59 11:59 Intake Total 3495 / 3495 3787 / 3787 2001 700 / 700 Output Total 2550 / 2550 4825 / 4825 1800 / 1800 Balance 3495 / 3495 1237 / 1237 -2823 / -2823 -1100 / -1100 - Physical Exam Oriented: Normal Eyes: Normal Ear: Normal Nose: Normal Throat: Normal Respiratory: Generalized, Diminished Cardiovascular: Normal : Normal Auscultation: Bowel Sounds: Decreased Tenderness: Suprapubic Skin: Decreased Turgur Musculoskeletal: Normal Psychiatric: Normal Mood Description: Calm Affect: Normal Speech Pattern: Clear - Laboratory and Diagnostics Result Diagrams: 12/17/21 04:35 12/17/21 04:35 Labs: 12/13/21 12:46 Urine,Catheterized Urine Culture - Final 12/15/21 12:00 Urine,Catheterized Urine Culture - Final 12/13/21 15:45 Blood Blood Culture - Preliminary 12/13/21 15:30 Blood Blood Culture - Preliminary Laboratory WBC 11.4 X10^3/uL (3.6-10.0) H 12/17/21 04:35 RBC 3.08 X10^6/uL (3.5-5.4) L 12/17/21 04:35 Hgb 8.9 g/dL (12.0-16.0) L 12/17/21 04:35 Hct 25.6 % (36.0-47.0) L 12/17/21 04:35 MCV 83.2 fL (80.0-100.0) 12/17/21 04:35 MCH 28.9 pg (27.0-34.0) 12/17/21 04:35 MCHC 34.7 g/dL (33.0-35.0) 12/17/21 04:35 RDW 13.8 % (11.6-16.5) 12/17/21 04:35 Plt Count 215 X10^3/uL (150.0-450.0) 12/17/21 04:35 Plt Count Comment Adequate (ADEQUATE) 12/13/21 12:36 MPV 8.8 fL (7.4-11.0) 12/17/21 04:35 Neut % (Auto) 75.0 % (42.0-75.0) 12/17/21 04:35 Lymph % (Auto) 10.8 % (21.0-51.0) L 12/17/21 04:35 Gray % (Auto) 10.8 % (0.0-13.0) 12/17/21 04:35 Eos % (Auto) 2.9 % (0.9-2.9) 12/17/21 04:35 Baso % (Auto) 0.5 % (0.2-1.0) 12/17/21 04:35 Neut # (Auto) 8.6 x10^3/uL (2.2-4.8) H 12/17/21 04:35 Lymph # (Auto) 1.2 X10^3/uL (1.3-2.9) L 12/17/21 04:35 Gray # (Auto) 1.2 x10^3/uL (0.3-0.8) H 12/17/21 04:35 Eos # (Auto) 0.3 x10^3/uL (0.0-0.2) H 12/17/21 04:35 Baso # (Auto) 0.1 X10^3/uL (0.0-0.1) 12/17/21 04:35 Absolute Nucleated RBC 0.0 /100WBC 12/17/21 04:35 Total Counted 100 12/13/21 12:36 Neutrophils % (Manual) 87 % (39-76) H 12/13/21 12:36 Band Neutrophils % 5 % (0-10) 12/13/21 12:36 Lymphocytes % (Manual) 4 % (13-43) L 12/13/21 12:36 Monocytes % (Manual) 4 % (4-9) 12/13/21 12:36 Plt Morphology Comment Normal (NORMAL) 12/13/21 12:36 RBC Morphology Normal (NORMAL) 12/13/21 12:36 D-Dimer 6.46 ug/ml (0.0-0.57) H 12/15/21 13:10 Sodium 140 mmol/L (136-145) 12/17/21 04:35 Corrected Sodium TNP 12/17/21 04:35 Potassium 3.2 mmol/L (3.5-5.1) L 12/17/21 04:35 Chloride 105 mmol/L (98-107) 12/17/21 04:35 Carbon Dioxide 24.0 mmol/L (21-32) 12/17/21 04:35 BUN 12 mg/dL (7-18) 12/17/21 04:35 Creatinine 1.07 mg/dL (0.55-1.02) H 12/17/21 04:35 Est GFR (MDRD) Af Amer > 60 (>60) 12/17/21 04:35 Est GFR (MDRD) Non-Af 55 (>60) L 12/17/21 04:35 Glucose 89 mg/dL (65-99) 12/17/21 04:35 Lactic Acid 0.4 mmol/L (0.4-2.0) 12/15/21 05:21 Calcium 8.2 mg/dL (8.5-10.1) L 12/17/21 04:35 Corrected Calcium 9.8 mg/dL (8.5-10.1) 12/17/21 04:35 Magnesium 1.3 mg/dL (2.0-2.9) L 12/17/21 04:35 Total Bilirubin 0.50 mg/dL (0.2-1.0) 12/17/21 04:35 AST 82 Units/L (15-37) H 12/17/21 04:35 ALT 94 Units/L (12-78) H 12/17/21 04:35 Alkaline Phosphatase 263 Units/L (46-116) H 12/17/21 04:35 Ammonia < 10 umol/L (11-32) L 12/14/21 07:26 Creatine Kinase 477 Units/L (26-192) H 12/15/21 13:10 Troponin I High Sens 27.3 ng/L (4.0-60.0) 12/15/21 13:10 C-Reactive Protein 235.40 mg/L (0-3.0) H 12/17/21 04:35 Total Protein 6.5 g/dL (6.4-8.2) 12/17/21 04:35 Albumin 2.0 g/dL (3.4-5.0) L 12/17/21 04:35 Globulin 4.5 g/dL (2.5-4.5) 12/17/21 04:35 Albumin/Globulin Ratio 0.4 Ratio (1.1-2.1) L 12/17/21 04:35 Lipase 49 Units/L (73-393) L 12/13/21 12:36 Specimen Type Catherized urine 12/15/21 12:00 Urine Color Straw (YELLOW) 12/15/21 12:00 Urine Appearance Clear (CLEAR) 12/15/21 12:00 Urine pH 6.0 (5.0 - 8.0) 12/15/21 12:00 Ur Specific [place] 1.010 (1.000-1.030) 12/15/21 12:00 Urine Protein 2+ (NEGATIVE) 12/15/21 12:00 Urine Glucose (UA) Negative (NEGATIVE) 12/15/21 12:00 Urine Ketones Negative (NEGATIVE) 12/15/21 12:00 Urine Blood 4+ (NEGATIVE) 12/15/21 12:00 Urine Nitrite Negative (NEGATIVE) 12/15/21 12:00 Urine Bilirubin Negative (NEGATIVE) 12/15/21 12:00 Urine Urobilinogen Normal (NORMAL) 12/15/21 12:00 Ur Leukocyte Esterase 3+ (NEGATIVE) 12/15/21 12:00 Urine RBC 3-5 /HPF (0-3) A 12/15/21 12:00 Urine WBC Tntc /HPF (0-5) A 12/15/21 12:00 Ur Squamous Epith Cells Few /HPF (NEGATIVE) 12/15/21 12:00 Urine Bacteria Trace /HPF (NEGATIVE) 12/15/21 12:00 Ur Culture Indicated? Yes/culture set up 12/15/21 12:00 SARS-CoV-2 (PCR) Negative (NEGATIVE) 12/13/21 12:46 Hepatitis A IgM Ab Negative (Negative) 12/13/21 12:36 Hep Bs Antigen Negative (Negative) 12/13/21 12:36 Hep Bs Ag Confirmation TNP 12/13/21 12:36 Hep B Core IgM Ab Negative (Negative) 12/13/21 12:36 Hepatitis C Ab Index <0.02 IV 12/13/21 12:36 Hepatitis C Interp Negative (Negative) 12/13/21 12:36 Hepatitis Interpret See note 12/13/21 12:36 Influenza Type A (PCR) Negative (NEGATIVE) 12/13/21 12:46 Influenza Type B (PCR) Negative (NEGATIVE) 12/13/21 12:46 RSV (PCR) Negative (NEGATIVE) 12/13/21 12:46 - Plan (1) Complicated urinary tract infection Status: Acute Plan: IV ATBX THERAPY, GENTLE IV HYDRATION WITH STRICT I&OS. REPEAT AM LABS AND CXR, CTA OF LUNGS OBTAINED TODAY. RESP THERAPY, SUPPLEMENTAL O2, ANTITUSSIVES, PT. BP AND CARDIAC MONITORING. ECHO ON FRIDAY (2) Acute renal failure Status: Acute (3) Elevated liver enzymes Status: Acute Plan: OBTAIN HIDA SCAN
[2021-12-17] MEDS: LIPITOR TAB 20 MG PO SCH (20:42)
[2021-12-17] MEDS: PEPCID TAB 20 MG PO SCH (20:42)
[2021-12-17] MEDS: KLONOPIN TAB 1 MG PO SCH (20:43)
[2021-12-17] MEDS: NEURONTIN CAP 300 MG PO SCH (20:43)
[2021-12-18] MEDS: NS 1,000 ML IV 1,000 ML IV SCH ×3 (02:31→18:14)
[2021-12-18] MEDS: ZOSYN VIAL 3.375 GRAMS 3.375 G in NS 100 ML IV 100 ML IV SCH ×3 (05:06→22:25)
[2021-12-18 06:19] LABS: BASOPHILS % (AUTO) 0.5 % (0.2-1.0); EOSINOPHILS # (AUTO) 0.3 x10^3/uL (0.0-0.2); HEMATOCRIT 23.7 % (36.0-47.0); HEMOGLOBIN 8.5 g/dL (12.0-16.0); LYMPHOCYTES # (AUTO) 1.6 X10^3/uL (1.3-2.9); LYMPHOCYTES % (AUTO) 19.4 % (21.0-51.0); MEAN CORPUSCULAR HEMOGLOBIN 29.4 pg (27.0-34.0); MEAN CORPUSCULAR HGB CONC 35.9 g/dL (33.0-35.0); MEAN CORPUSCULAR VOLUME 82.1 fL (80.0-100.0); MEAN PLATELET VOLUME 8.3 fL (7.4-11.0); MONOCYTES # (AUTO) 0.9 x10^3/uL (0.3-0.8); MONOCYTES % (AUTO) 10.5 % (0.0-13.0); NEUTROPHILS # (AUTO) 5.3 x10^3/uL (2.2-4.8); NEUTROPHILS % (AUTO) 65.6 % (42.0-75.0); RED BLOOD COUNT 2.89 X10^6/uL (3.5-5.4); RED CELL DISTRIBUTION WIDTH 13.8 % (11.6-16.5); WHITE BLOOD COUNT 8.1 X10^3/uL (3.6-10.0)
[2021-12-18 06:43] LABS: ALANINE AMINOTRANSFERASE 113 Units/L (12-78); ALKALINE PHOSPHATASE 300 Units/L (46-116); ASPARTATE AMINO TRANSFERASE 119 Units/L (15-37); BLOOD UREA NITROGEN 10 mg/dL (7-18); CALCIUM 8.3 mg/dL (8.5-10.1); CARBON DIOXIDE 26.1 mmol/L (21-32); CHLORIDE 108 mmol/L (98-107); COR CA(FOR HYPOALB) 9.9 mg/dL (8.5-10.1); CREATININE 0.88 mg/dL (0.55-1.02); MAGNESIUM 1.7 mg/dL (2.0-2.9); SODIUM 144 mmol/L (136-145); TOTAL PROTEIN 6.1 g/dL (6.4-8.2); eGFR NON BLACK RACES > 60 (>60)
--- NOTE | 2021-12-18 06:58 | RAD ---
HISTORYShortness of breathSTUDYChest AP [id number]/[id number] heart is upper limits normal in size. No congestive heart failure is noted. The lungs appear free of acute infiltrates. No pleural effusions are identified. Bony thorax is unremarkable with the exception of an old healed rib fracture on the right.IMPRESSIONNo significant abnormality identifiedElectronically signed by: RED LEMOS (Dec 18, 2021 06:56:38)
[2021-12-18] MEDS: ROBITUSSIN DM PO SCH ×4 (08:58→20:51)
[2021-12-18] MEDS: PROTONIX TAB 40 MG PO SCH (08:58)
[2021-12-18] MEDS: CIPRO IV 400 MG PREMIX* 400 MG/200 ML IV.SOLN. IV SCH ×2 (08:58→20:51)
[2021-12-18] MEDS: LOVENOX INJ 30 MG SYR SC SCH (08:59)
[2021-12-18] MEDS: XOPENEX 1.25 MG/3 ML NEBULE NEB SCH ×4 (09:40→21:48)
--- NOTE | 2021-12-18 11:06 | PCM.PROG ---
Progress Note - Progress Note for Day of Date of Exam: 12/18/21 - Subjective Subjective: WAS ADMITTED FOR TREATEMENT OF UTI, ACUTE RENAL FAILURE, ELEVATED LIVER ENZYMES, HYPOTENSION. SHE HAD A GALLBLADDER WORK-UP WHICH REVEALED A LOW EJECTION FRACTION. WE CONSULTED GENERAL SURGERY, HOWEVER, DID NOT FEEL THAT SURGICAL INTERVENTION WAS WARRANTED AT THE PRESENT TIME. HE FELT THAT HER SYMPTOMS WERE PROBABLY RELATED TO UTI AND INFECTION RATHER THAN THE GALLBLADDER. TODAY, SHE IS ALERT AND ORIENTED, LYING IN BED ON MORNING ROUNDS. SHE CONTINUES WITH COMPLAINTS OF GENERALIZED WEAKNESS AND MILD ABDOMINAL DISCOMFORT. ON EXAMINATION, HEART WAS REGULAR IN RATE AND RHYTHM. BILATERAL LUNGS WERE NOTED WITH DIMINISHED LUNG SOUNDS THROUGHOUT. ABDOMEN WAS ROUND, SOFT, AND NOTED WITH SUPRAPUBIC TENDERNESS. HYPOACTIVE BOWEL SOUNDS WERE NOTED. NO UPPER OR LOWER EXTREMITY EDEMA WAS NOTED. HER VITALS THIS MORNING WERE: 98.6-100-20-92%-117/70. LABS WERE OBTAINED. WBC 8.1, RBC 2.89, HGB 8.5, HCT 23.7, PLT COUNT 227, SODIUM 144, POTASSIUM 3.2, CHLORIDE 108, BUN 10, CREA TININE 0.88, GLUCOSE 89, CALCIUM 8.3, MAGNESIUM 1.7, AST 119, ALT 113, ALK PHOS 300, CRP 147.60, TOTAL PROTEIN 6.1, ALBUMIN 2.0. BLOOD AND URINE CULTURES WERE PENDING. AN ABDOMEN/PELVIS CT WITH CONTRAST WAS OBTAINED YESTERDAY. IT REVEALED: Heart size normal. Small bilateral effusions are present associated with atelectasis. Liver, gallbladder, spleen, adrenal glands, and pancreas are unremarkable. Small calcified stones are present in the left and right kidney. Renal enhancement is symmetric with no solid mass. There is no hydronephrosis or significant perirenal edema. Urinary bladder is contracted around a Mcfadden balloon catheter. The hydroureteronephrosis that was present on the prior study has nearly resolved. The bowel is not dilated. There is no wall thickening in the bowel or edema around the bowel. Small volume free fluid noted in the pelvis. Degenerative changes are present in the spine. CHEST XRAY WAS OBTAINED THIS MORNING AND REVEALED: The heart is upper limits normal in size. No congestive heart failure is noted. The lungs appear free of acute infiltrates. No pleural effusions are identified. Bony thorax is unremarkable with the exception of an old healed rib fracture on the right. SHE IS CURRENTLY RECEIVING NORMAL SALINE AT 125 ML/HR, ROCEPHIN 2G IV DAILY, ZOSYN 3.375G IV TID, THE POTASSIUM AND MAGNESIUM PROTOCOLS, LOVENOX 30MG SC DAILY, ROBITUSSIN 10ML PO QID, ZOFRAN 4MG IV Q6H PRN, FIORICET 2TABS PO Q8H PRN HEADACHES, AND HER HOME MEDICATIONS WERE RESUMED. WE WILL CONTINUE HER IV FLUIDS, ANTIBIOTICS, AND CURRENT PLAN OF CARE TODAY. WE WILL OBTAIN AN MRCP DUE TO PERSISTENTLY ELEVATED LFTs. OTHERWISE, WE PLAN TO FOLLOW-UP WITH AM LABS AND CHEST XRAY AND CONTINUE TO MONITOR. TIME SPENT ON CLINICAL ASSESSMENT, REVIWING LABS AND IMAGING, DECISION MAKING, AND DOCUMENTATION GREATER THAN 45 MINUTES. - Past Medical Family Social History Past Med/Fam/Surg Hx: No changes since H&P Allergies: Allergies sulfamethoxazole [From Bactrim] Allergy (Verified 12/13/21 14:01) trimethoprim [From Bactrim] Allergy (Verified 12/13/21 14:01) - Review of Systems ROS: No change since H&P - Vital Signs and I&O's Vital Signs: Temperature 98.6 F Pulse Rate [Left Brachial] 101 Pulse Rate 93 Respiratory Rate 20 Blood Pressure [Right Arm] 117/70 Blood Pressure 89/55 O2 Sat by Pulse Oximetry 94 Intake and Output: Intake & Output 12/15/21 12/16/21 12/17/21 12/18/21 11:59 11:59 11:59 11:59 Intake Total 3495 / 3495 3787 / 3787 2001 2103 / 2103 Output Total 2550 / 2550 4825 / 4825 2800 / 2800 Balance 3495 / 3495 1237 / 1237 -2823 / -2823 -697 / -697 - Physical Exam Oriented: Normal Eyes: Normal Ear: Normal Nose: Normal Throat: Normal Respiratory: Generalized, Diminished Cardiovascular: Normal : Normal Auscultation: Bowel Sounds: Decreased Palpation: Normal Tenderness: Suprapubic Skin: Decreased Turgur Musculoskeletal: Normal Psychiatric: Normal Mood Description: Calm Affect: Normal Speech Pattern: Clear - Laboratory and Diagnostics Result Diagrams: 12/18/21 05:45 12/18/21 05:45 Labs: 12/13/21 12:46 Urine,Catheterized Urine Culture - Final 12/15/21 12:00 Urine,Catheterized Urine Culture - Final 12/13/21 15:45 Blood Blood Culture - Preliminary 12/13/21 15:30 Blood Blood Culture - Preliminary Laboratory WBC 8.1 X10^3/uL (3.6-10.0) 12/18/21 05:45 RBC 2.89 X10^6/uL (3.5-5.4) L 12/18/21 05:45 Hgb 8.5 g/dL (12.0-16.0) L 12/18/21 05:45 Hct 23.7 % (36.0-47.0) L 12/18/21 05:45 MCV 82.1 fL (80.0-100.0) 12/18/21 05:45 MCH 29.4 pg (27.0-34.0) 12/18/21 05:45 MCHC 35.9 g/dL (33.0-35.0) H 12/18/21 05:45 RDW 13.8 % (11.6-16.5) 12/18/21 05:45 Plt Count 227 X10^3/uL (150.0-450.0) 12/18/21 05:45 Plt Count Comment Adequate (ADEQUATE) 12/13/21 12:36 MPV 8.3 fL (7.4-11.0) 12/18/21 05:45 Neut % (Auto) 65.6 % (42.0-75.0) 12/18/21 05:45 Lymph % (Auto) 19.4 % (21.0-51.0) L 12/18/21 05:45 [place] % (Auto) 10.5 % (0.0-13.0) 12/18/21 05:45 Eos % (Auto) 4.0 % (0.9-2.9) H 12/18/21 05:45 Baso % (Auto) 0.5 % (0.2-1.0) 12/18/21 05:45 Neut # (Auto) 5.3 x10^3/uL (2.2-4.8) H 12/18/21 05:45 Lymph # (Auto) 1.6 X10^3/uL (1.3-2.9) 12/18/21 05:45 [place] # (Auto) 0.9 x10^3/uL (0.3-0.8) H 12/18/21 05:45 Eos # (Auto) 0.3 x10^3/uL (0.0-0.2) H 12/18/21 05:45 Baso # (Auto) 0.0 X10^3/uL (0.0-0.1) 12/18/21 05:45 Absolute Nucleated RBC 0.0 /100WBC 12/18/21 05:45 Total Counted 100 12/13/21 12:36 Neutrophils % (Manual) 87 % (39-76) H 12/13/21 12:36 Band Neutrophils % 5 % (0-10) 12/13/21 12:36 Lymphocytes % (Manual) 4 % (13-43) L 12/13/21 12:36 Monocytes % (Manual) 4 % (4-9) 12/13/21 12:36 Plt Morphology Comment Normal (NORMAL) 12/13/21 12:36 RBC Morphology Normal (NORMAL) 12/13/21 12:36 D-Dimer 6.46 ug/ml (0.0-0.57) H 12/15/21 13:10 Sodium 144 mmol/L (136-145) 12/18/21 05:45 Corrected Sodium TNP 12/18/21 05:45 Potassium 3.2 mmol/L (3.5-5.1) L 12/18/21 05:45 Chloride 108 mmol/L (98-107) H 12/18/21 05:45 Carbon Dioxide 26.1 mmol/L (21-32) 12/18/21 05:45 BUN 10 mg/dL (7-18) 12/18/21 05:45 Creatinine 0.88 mg/dL (0.55-1.02) 12/18/21 05:45 Est GFR (MDRD) Af Amer > 60 (>60) 12/18/21 05:45 Est GFR (MDRD) Non-Af > 60 (>60) 12/18/21 05:45 Glucose 89 mg/dL (65-99) 12/18/21 05:45 Lactic Acid 0.4 mmol/L (0.4-2.0) 12/15/21 05:21 Calcium 8.3 mg/dL (8.5-10.1) L 12/18/21 05:45 Corrected Calcium 9.9 mg/dL (8.5-10.1) 12/18/21 05:45 Magnesium 1.7 mg/dL (2.0-2.9) L 12/18/21 05:45 Total Bilirubin 0.50 mg/dL (0.2-1.0) 12/18/21 05:45 AST 119 Units/L (15-37) H 12/18/21 05:45 ALT 113 Units/L (12-78) H 12/18/21 05:45 Alkaline Phosphatase 300 Units/L (46-116) H 12/18/21 05:45 Ammonia < 10 umol/L (11-32) L 12/14/21 07:26 Creatine Kinase 477 Units/L (26-192) H 12/15/21 13:10 Troponin I High Sens 27.3 ng/L (4.0-60.0) 12/15/21 13:10 C-Reactive Protein 147.60 mg/L (0-3.0) H 12/18/21 05:45 Total Protein 6.1 g/dL (6.4-8.2) L 12/18/21 05:45 Albumin 2.0 g/dL (3.4-5.0) L 12/18/21 05:45 Globulin 4.1 g/dL (2.5-4.5) 12/18/21 05:45 Albumin/Globulin Ratio 0.5 Ratio (1.1-2.1) L 12/18/21 05:45 Lipase 49 Units/L (73-393) L 12/13/21 12:36 Specimen Type Catherized urine 12/15/21 12:00 Urine Color Straw (YELLOW) 12/15/21 12:00 Urine Appearance Clear (CLEAR) 12/15/21 12:00 Urine pH 6.0 (5.0 - 8.0) 12/15/21 12:00 Ur Specific [place] 1.010 (1.000-1.030) 12/15/21 12:00 Urine Protein 2+ (NEGATIVE) 12/15/21 12:00 Urine Glucose (UA) Negative (NEGATIVE) 12/15/21 12:00 Urine Ketones Negative (NEGATIVE) 12/15/21 12:00 Urine Blood 4+ (NEGATIVE) 12/15/21 12:00 Urine Nitrite Negative (NEGATIVE) 12/15/21 12:00 Urine Bilirubin Negative (NEGATIVE) 12/15/21 12:00 Urine Urobilinogen Normal (NORMAL) 12/15/21 12:00 Ur Leukocyte Esterase 3+ (NEGATIVE) 12/15/21 12:00 Urine RBC 3-5 /HPF (0-3) A 12/15/21 12:00 Urine WBC Tntc /HPF (0-5) A 12/15/21 12:00 Ur Squamous Epith Cells Few /HPF (NEGATIVE) 12/15/21 12:00 Urine Bacteria Trace /HPF (NEGATIVE) 12/15/21 12:00 Ur Culture Indicated? Yes/culture set up 12/15/21 12:00 SARS-CoV-2 (PCR) Negative (NEGATIVE) 12/13/21 12:46 Hepatitis A IgM Ab Negative (Negative) 12/13/21 12:36 Hep Bs Antigen Negative (Negative) 12/13/21 12:36 Hep Bs Ag Confirmation TNP 12/13/21 12:36 Hep B Core IgM Ab Negative (Negative) 12/13/21 12:36 Hepatitis C Ab Index <0.02 IV 12/13/21 12:36 Hepatitis C Interp Negative (Negative) 12/13/21 12:36 Hepatitis Interpret See note 12/13/21 12:36 Influenza Type A (PCR) Negative (NEGATIVE) 12/13/21 12:46 Influenza Type B (PCR) Negative (NEGATIVE) 12/13/21 12:46 RSV (PCR) Negative (NEGATIVE) 12/13/21 12:46 - Plan (1) Complicated urinary tract infection Status: Acute Plan: IV ATBX THERAPY, GENTLE IV HYDRATION WITH STRICT I&OS. REPEAT AM LABS AND CXR, RESP THERAPY, SUPPLEMENTAL O2, ANTITUSSIVES, PT, BP AND CARDIAC MONITORING, OBTAIN MRCP TODAY (2) Acute bronchitis Status: Acute Qualifiers: Bronchitis organism: unspecified organism Qualified Code(s): J20.9 - Acute bronchitis, unspecified (3) Pleural effusion Status: Acute (4) Elevated liver enzymes Status: Acute Plan: OBTAIN HIDA SCAN (5) Hypotension Status: Resolved Qualifiers: Hypotension type: unspecified hypotension type Qualified Code(s): I95.9 - Hypotension, unspecified (6) Headache Status: Resolved Qualifiers: Headache type: unspecified Headache chronicity pattern: episodic headache Intractability: not intractable Qualified Code(s): R51.9 - Headache, unspecified
[2021-12-18] MEDS: MAGNESIUM SULFATE 1 GRAM/100 mL PREMIX 1 G/100 ML BAG IV PRN (13:18)
[2021-12-18] MEDS: NEURONTIN CAP 300 MG PO SCH (20:51)
[2021-12-18] MEDS: LIPITOR TAB 20 MG PO SCH (20:51)
[2021-12-18] MEDS: KLONOPIN TAB 1 MG PO SCH (20:51)
[2021-12-18] MEDS: PEPCID TAB 20 MG PO SCH (20:51)
[2021-12-18] MEDS: KLOR-CON PO PRN (21:36)
[2021-12-19] MEDS: MAGNESIUM SULFATE 1 GRAM/100 mL PREMIX 1 G/100 ML BAG IV PRN ×3 (00:47→12:33)
[2021-12-19] MEDS: ZOSYN VIAL 3.375 GRAMS 3.375 G in NS 100 ML IV 100 ML IV SCH ×3 (05:11→21:11)
[2021-12-19] MEDS: NS 1,000 ML IV 1,000 ML IV SCH ×3 (05:12→18:47)
[2021-12-19 06:12] LABS: BASOPHILS # (AUTO) 0.1 X10^3/uL (0.0-0.1); BASOPHILS % (AUTO) 0.8 % (0.2-1.0); EOSINOPHILS # (AUTO) 0.4 x10^3/uL (0.0-0.2); EOSINOPHILS % (AUTO) 4.8 % (0.9-2.9); HEMATOCRIT 23.7 % (36.0-47.0); HEMOGLOBIN 8.3 g/dL (12.0-16.0); LYMPHOCYTES # (AUTO) 1.5 X10^3/uL (1.3-2.9); LYMPHOCYTES % (AUTO) 16.4 % (21.0-51.0); MEAN CORPUSCULAR HEMOGLOBIN 29.2 pg (27.0-34.0); MEAN CORPUSCULAR HGB CONC 35.2 g/dL (33.0-35.0); MEAN PLATELET VOLUME 8.3 fL (7.4-11.0); MONOCYTES # (AUTO) 0.9 x10^3/uL (0.3-0.8); MONOCYTES % (AUTO) 10.6 % (0.0-13.0); NEUTROPHILS % (AUTO) 67.4 % (42.0-75.0); RED BLOOD COUNT 2.85 X10^6/uL (3.5-5.4); RED CELL DISTRIBUTION WIDTH 13.8 % (11.6-16.5); WHITE BLOOD COUNT 8.9 X10^3/uL (3.6-10.0)
--- NOTE | 2021-12-19 06:23 | RAD ---
HISTORYSOB Relevant Clinical InformationSTUDYCHEST, 1 [id number] trachea is midline. The cardiac silhouette is upper limits of normal.. The lungs are clear without focal infiltrate or effusion. The bony thorax is unremarkable.IMPRESSIONNo acute cardiopulmonary findings .Electronically signed by: Rajinder Brown (Dec 19, 2021 06:22:07)
[2021-12-19 06:34] LABS: ALANINE AMINOTRANSFERASE 136 Units/L (12-78); ALKALINE PHOSPHATASE 324 Units/L (46-116); ASPARTATE AMINO TRANSFERASE 148 Units/L (15-37); BLOOD UREA NITROGEN 9 mg/dL (7-18); CALCIUM 8.6 mg/dL (8.5-10.1); CARBON DIOXIDE 25.2 mmol/L (21-32); CHLORIDE 109 mmol/L (98-107); COR CA(FOR HYPOALB) 10.2 mg/dL (8.5-10.1); CREATININE 0.74 mg/dL (0.55-1.02); MAGNESIUM 1.9 mg/dL (2.0-2.9); SODIUM 144 mmol/L (136-145); TOTAL PROTEIN 4.4 g/dL (6.4-8.2); eGFR NON BLACK RACES > 60 (>60)
--- NOTE | 2021-12-19 08:09 | MRI ---
HISTORYELEVATED LFTS, ABD PAINSTUDYMRI abdomen without IV contrast, MRCPCOMPARISONCT 12/17/2021TECHNIQUEMRI of the abdomenwithout IV contrast is performed using standard sequences in multiple planes. MRCP protocol.FINDINGSDistal common bile duct is borderline prominent for patient's age measuring 7.0 mm in diameter. However, no evidence of biliary ductal stricture or choledocholithiasis is seen. No evidence of cholelithiasis or cholecystitis is seen. No focal hepatic abnormality is seen. Liver and spleen are normal in size.No pancreatic abnormality is seen but motion slightly limits the study. No adrenal nodules are seen. There is a simple appearing exophytic cyst in the mid right kidney measuring 1.6 cm. Probable sub cm perihilar cyst is seen in the lower pole of the left kidney. Renal stones seen on CT are not well seen. No hydronephrosis is seen. There may be a few other sub cm cysts in the right kidney, also.Small pleural effusions are seen with probable cardiomegaly. Abdominal aorta is normal in size. No ascites is seen. No lymphadenopathy is seen.IMPRESSIONBorderline enlarged common bile duct is seen without evidence of ductal stone or stricture. No cholelithiasis or cholecystitis is seen.Likely benign simple cysts are seen in the kidneys.Electronically signed by: Justice Staton (Dec 19, 2021 08:08:07)
[2021-12-19] MEDS: K-DUR TAB 20 MEQ PO PRN (08:51)
[2021-12-19] MEDS: LOVENOX INJ 30 MG SYR SC SCH (08:51)
[2021-12-19] MEDS: ROBITUSSIN DM PO SCH ×4 (08:51→21:21)
[2021-12-19] MEDS: PROTONIX TAB 40 MG PO SCH (08:51)
[2021-12-19] MEDS: CIPRO IV 400 MG PREMIX* 400 MG/200 ML IV.SOLN. IV SCH ×2 (08:51→21:11)
[2021-12-19] MEDS: XOPENEX 1.25 MG/3 ML NEBULE NEB SCH ×4 (08:55→22:01)
--- NOTE | 2021-12-19 12:22 | PCM.PROG ---
Progress Note - Progress Note for Day of Date of Exam: 12/19/21 - Subjective Subjective: WAS ADMITTED FOR TREATEMENT OF UTI, ACUTE RENAL FAILURE, ELEVATED LIVER ENZYMES, HYPOTENSION. SHE HAD A GALLBLADDER WORK-UP WHICH REVEALED A LOW EJECTION FRACTION. WE CONSULTED GENERAL SURGERY, HOWEVER, DID NOT FEEL THAT SURGICAL INTERVENTION WAS WARRANTED AT THE PRESENT TIME. HE FELT THAT HER SYMPTOMS WERE PROBABLY RELATED TO UTI AND INFECTION RATHER THAN THE GALLBLADDER. TODAY, SHE IS ALERT AND ORIENTED, LYING IN BED ON MORNING ROUNDS. SHE CONTINUES WITH COMPLAINTS OF GENERALIZED WEAKNESS TODAY. ON EXAMINATION, HEART WAS REGULAR IN RATE AND RHYTHM. BILATERAL LUNGS WERE NOTED WITH DIMINISHED LUNG SOUNDS THROUGHOUT. ABDOMEN WAS ROUND, SOFT, AND NON-TENDER WITH HYPOACTIVE BOWEL SOUNDS WERE NOTED. NO UPPER OR LOWER EXTREMITY EDEMA WAS NOTED. HER VITALS THIS MORNING WERE: 97.9-98-20-95%-135/68. LABS WERE OBTAINED. WBC 8.9, RBC 2.85, HGB 8.3, HCT 23.7, SODIUM 144, POTASSIUM 3.5, CHLORIDE 109, BUN 9, CREATININE 0.74, GLUCOSE 94, CALCIUM 8.6, MAGNESIUM 1.9, TOTAL BILI 0.40, AST 148, ALT 136, ALK PHOS 324, CRP 97.40, TOTAL PROTEIN 4.4, ALBUMIN 2.0. BLOOD AND URINE CULTURES ARE NEGATIVE. A MRCP WAS OBTAINED YESTERDAY AND REVEALED: Distal common bile duct is borderline prominent for patient's age measuring 7.0 mm in diameter. However, no evidence of biliary ductal stricture or choledocholithiasis is seen. No evidence of cholelithiasis or cholecystitis is seen. No focal hepatic abnormality is seen. Liver and spleen are normal in size. No pancreatic abnormality is seen but motion slightly limits the study. No adrenal nodules are seen. There is a simple appearing exophytic cyst in the mid right kidney measuring 1.6 cm. Probable sub cm perihilar cyst is seen in the lower pole of the left kidney. Renal stones seen on CT are not well seen. No hydronephrosis is seen. There may be a few other sub cm cysts in the right kidney, also. Small pleural effusions are seen with probable cardiomegaly. Abdominal aorta is normal in size. No ascites is seen. No lymphadenopathy is seen. 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 SHE IS CURRENTLY RECEIVING NORMAL SALINE AT 125 ML/HR, CIPRO 400MG IV Q12H, ZOSYN 3.375G IV TID, THE POTASSIUM AND MAGNESIUM PROTOCOLS, LOVENOX 30MG SC DAILY, ROBITUSSIN 10ML PO QID, ZOFRAN 4MG IV Q6H PRN, FIORICET 2TABS PO Q8H PRN HEADACHES, AND HER HOME MEDICATIONS WERE RESUMED. WE WILL CONTINUE HER CURRENT PLAN OF CARE TODAY AND ORDER SOME ADDITIONAL LABS. OTHERWISE, WE PLAN TO FOLLOW-UP WITH AM LABS AND CONTINUE TO MONITOR. TIME SPENT ON CLINICAL ASSESSMENT, REVIWING LABS AND IMAGING, DECISION MAKING, AND DOCUMENTATION GREATER THAN 45 MINUTES. - Past Medical Family Social History Past Med/Fam/Surg Hx: No changes since H&P Allergies: Allergies sulfamethoxazole [From Bactrim] Allergy (Verified 12/13/21 14:01) trimethoprim [From Bactrim] Allergy (Verified 12/13/21 14:01) - Review of Systems ROS: No change since H&P - Vital Signs and I&O's Vital Signs: Temperature 98.8 F Pulse Rate [Left Brachial] 105 Pulse Rate 91 Respiratory Rate 20 Blood Pressure [Right Arm] 125/64 Blood Pressure 89/55 O2 Sat by Pulse Oximetry 98 Intake and Output: Intake & Output 12/17/21 12/18/21 12/19/21 12/20/21 11:59 11:59 11:59 11:59 Intake Total 2001 2103 / 2103 1928 / 1928 Output Total 4825 / 4825 2800 / 2800 1989 Balance -2823 / -2823 -697 / -697 -62 / -62 - Physical Exam Oriented: Normal Eyes: Normal Ear: Normal Nose: Normal Throat: Normal Respiratory: Generalized, Diminished Cardiovascular: Normal : Normal Auscultation: Bowel Sounds: Decreased Palpation: Normal Tenderness: Suprapubic Skin: Decreased Turgur Musculoskeletal: Normal Psychiatric: Normal Mood Description: Calm Affect: Normal Speech Pattern: Clear - Laboratory and Diagnostics Result Diagrams: 12/19/21 05:51 12/19/21 05:51 Labs: 12/13/21 15:45 Blood Blood Culture - Final 12/13/21 15:30 Blood Blood Culture - Final 12/15/21 10:01 Blood Blood Culture - Preliminary 12/15/21 09:51 Blood Blood Culture - Preliminary 12/13/21 12:46 Urine,Catheterized Urine Culture - Final 12/15/21 12:00 Urine,Catheterized Urine Culture - Final Laboratory WBC 8.9 X10^3/uL (3.6-10.0) 12/19/21 05:51 RBC 2.85 X10^6/uL (3.5-5.4) L 12/19/21 05:51 Hgb 8.3 g/dL (12.0-16.0) L 12/19/21 05:51 Hct 23.7 % (36.0-47.0) L 12/19/21 05:51 MCV 83.0 fL (80.0-100.0) 12/19/21 05:51 MCH 29.2 pg (27.0-34.0) 12/19/21 05:51 MCHC 35.2 g/dL (33.0-35.0) H 12/19/21 05:51 RDW 13.8 % (11.6-16.5) 12/19/21 05:51 Plt Count 259 X10^3/uL (150.0-450.0) 12/19/21 05:51 Plt Count Comment Adequate (ADEQUATE) 12/13/21 12:36 MPV 8.3 fL (7.4-11.0) 12/19/21 05:51 Neut % (Auto) 67.4 % (42.0-75.0) 12/19/21 05:51 Lymph % (Auto) 16.4 % (21.0-51.0) L 12/19/21 05:51 [place] % (Auto) 10.6 % (0.0-13.0) 12/19/21 05:51 Eos % (Auto) 4.8 % (0.9-2.9) H 12/19/21 05:51 Baso % (Auto) 0.8 % (0.2-1.0) 12/19/21 05:51 Neut # (Auto) 6.0 x10^3/uL (2.2-4.8) H 12/19/21 05:51 Lymph # (Auto) 1.5 X10^3/uL (1.3-2.9) 12/19/21 05:51 [place] # (Auto) 0.9 x10^3/uL (0.3-0.8) H 12/19/21 05:51 Eos # (Auto) 0.4 x10^3/uL (0.0-0.2) H 12/19/21 05:51 Baso # (Auto) 0.1 X10^3/uL (0.0-0.1) 12/19/21 05:51 Absolute Nucleated RBC 0.0 /100WBC 12/19/21 05:51 Total Counted 100 12/13/21 12:36 Neutrophils % (Manual) 87 % (39-76) H 12/13/21 12:36 Band Neutrophils % 5 % (0-10) 12/13/21 12:36 Lymphocytes % (Manual) 4 % (13-43) L 12/13/21 12:36 Monocytes % (Manual) 4 % (4-9) 12/13/21 12:36 Plt Morphology Comment Normal (NORMAL) 12/13/21 12:36 RBC Morphology Normal (NORMAL) 12/13/21 12:36 D-Dimer 6.46 ug/ml (0.0-0.57) H 12/15/21 13:10 Sodium 144 mmol/L (136-145) 12/19/21 05:51 Corrected Sodium TNP 12/19/21 05:51 Potassium 3.5 mmol/L (3.5-5.1) 12/19/21 05:51 Chloride 109 mmol/L (98-107) H 12/19/21 05:51 Carbon Dioxide 25.2 mmol/L (21-32) 12/19/21 05:51 BUN 9 mg/dL (7-18) 12/19/21 05:51 Creatinine 0.74 mg/dL (0.55-1.02) 12/19/21 05:51 Est GFR (MDRD) Af Amer > 60 (>60) 12/19/21 05:51 Est GFR (MDRD) Non-Af > 60 (>60) 12/19/21 05:51 Glucose 94 mg/dL (65-99) 12/19/21 05:51 Lactic Acid 0.4 mmol/L (0.4-2.0) 12/15/21 05:21 Calcium 8.6 mg/dL (8.5-10.1) 12/19/21 05:51 Corrected Calcium 10.2 mg/dL (8.5-10.1) H 12/19/21 05:51 Magnesium 1.9 mg/dL (2.0-2.9) L 12/19/21 05:51 Iron 40 ug/dL (50-175) L 12/19/21 05:51 Transferrin 130 mg/dL (202-364) L 12/19/21 05:51 Ferritin 776 ng/mL (8-252) H 12/19/21 05:51 Total Bilirubin 0.40 mg/dL (0.2-1.0) 12/19/21 05:51 AST 148 Units/L (15-37) H 12/19/21 05:51 ALT 136 Units/L (12-78) H 12/19/21 05:51 Alkaline Phosphatase 324 Units/L (46-116) H 12/19/21 05:51 Ammonia < 10 umol/L (11-32) L 12/14/21 07:26 Creatine Kinase 477 Units/L (26-192) H 12/15/21 13:10 Troponin I High Sens 27.3 ng/L (4.0-60.0) 12/15/21 13:10 C-Reactive Protein 97.40 mg/L (0-3.0) H 12/19/21 05:51 Total Protein 4.4 g/dL (6.4-8.2) L 12/19/21 05:51 Albumin 2.0 g/dL (3.4-5.0) L 12/19/21 05:51 Globulin 2.4 g/dL (2.5-4.5) L 12/19/21 05:51 Albumin/Globulin Ratio 0.8 Ratio (1.1-2.1) L 12/19/21 05:51 Lipase 49 Units/L (73-393) L 12/13/21 12:36 Vitamin B12 925 pg/mL (193-986) 12/19/21 05:51 Folate 8.4 ng/mL (>8.6) L 12/19/21 05:51 Specimen Type Catherized urine 12/15/21 12:00 Urine Color Straw (YELLOW) 12/15/21 12:00 Urine Appearance Clear (CLEAR) 12/15/21 12:00 Urine pH 6.0 (5.0 - 8.0) 12/15/21 12:00 Ur Specific [place] 1.010 (1.000-1.030) 12/15/21 12:00 Urine Protein 2+ (NEGATIVE) 12/15/21 12:00 Urine Glucose (UA) Negative (NEGATIVE) 12/15/21 12:00 Urine Ketones Negative (NEGATIVE) 12/15/21 12:00 Urine Blood 4+ (NEGATIVE) 12/15/21 12:00 Urine Nitrite Negative (NEGATIVE) 12/15/21 12:00 Urine Bilirubin Negative (NEGATIVE) 12/15/21 12:00 Urine Urobilinogen Normal (NORMAL) 12/15/21 12:00 Ur Leukocyte Esterase 3+ (NEGATIVE) 12/15/21 12:00 Urine RBC 3-5 /HPF (0-3) A 12/15/21 12:00 Urine WBC Tntc /HPF (0-5) A 12/15/21 12:00 Ur Squamous Epith Cells Few /HPF (NEGATIVE) 12/15/21 12:00 Urine Bacteria Trace /HPF (NEGATIVE) 12/15/21 12:00 Ur Culture Indicated? Yes/culture set up 12/15/21 12:00 SARS-CoV-2 (PCR) Negative (NEGATIVE) 12/13/21 12:46 Hepatitis A IgM Ab Negative (Negative) 12/13/21 12:36 Hep Bs Antigen Negative (Negative) 12/13/21 12:36 Hep Bs Ag Confirmation TNP 12/13/21 12:36 Hep B Core IgM Ab Negative (Negative) 12/13/21 12:36 Hepatitis C Ab Index <0.02 IV 12/13/21 12:36 Hepatitis C Interp Negative (Negative) 12/13/21 12:36 Hepatitis Interpret See note 12/13/21 12:36 Influenza Type A (PCR) Negative (NEGATIVE) 12/13/21 12:46 Influenza Type B (PCR) Negative (NEGATIVE) 12/13/21 12:46 RSV (PCR) Negative (NEGATIVE) 12/13/21 12:46 - Plan (1) Complicated urinary tract infection Status: Acute Plan: IV ATBX THERAPY, GENTLE IV HYDRATION WITH STRICT I&OS. REPEAT AM LABS AND CXR, RESP THERAPY, SUPPLEMENTAL O2, ANTITUSSIVES, PT, BP AND CARDIAC MONITORING, OBTAIN MRCP TODAY (2) Acute bronchitis Status: Acute Qualifiers: Bronchitis organism: unspecified organism Qualified Code(s): J20.9 - Acute bronchitis, unspecified (3) Pleural effusion Status: Acute (4) Elevated liver enzymes Status: Acute Plan: OBTAIN HIDA SCAN (5) Hypotension Status: Resolved Qualifiers: Hypotension type: unspecified hypotension type Qualified Code(s): I95.9 - Hypotension, unspecified (6) Headache Status: Resolved Qualifiers: Headache type: unspecified Headache chronicity pattern: episodic headache Intractability: not intractable Qualified Code(s): R51.9 - Headache, unspecified
--- NOTE | 2021-12-19 17:50 | DR.CONSULT ---
Consult - Consultation for Day of: Date: 12/19/21 (Dr. Call) - Chief Complaint Chief Complaint: Pt is a 66 y/o who is referred for abnormal LFTs and abnormal gallbladder ejection fraction. Patient has complaints of GERD. At present, denies dysphagia, dyspepsia, abdominal pain, N/V, diarrhea, constipation, melena, and hematochezia. Last EGD 5+ years ago. Last colon 1-2 years ago, done by Dr. Schaeffer, pt reports no colon polyps were removed. Pt currently takes Protonix daily. Denies NSAID use. Not currently taking ASA or blood thinners. HIDA scan done 12/14/21 showed low gallbladder ejection fraction of 10%, most likely reflecting chronic cholecystitis. MRCP done yesterday showed borderline enlarged common bile duct is seen without evidence of ductal stone or stricture, no cholelithiasis or. cholecystitis is seen. PT PRESENTED TO THE ER WITH COMPLAINTS OF FREQUENT NAUSEA, VOMITING, DIARRHEA, AND GENERALIZED WEAKNESS FOR THE PRIOR 3-4 DAYS. SHE WAS RECENTLY DIAGNOSED WITH A URINARY TRACT INFECTION AND WAS PRESCRIBED CEPHALEXIN 500MG TID. SHE STARTED TAKING IT ON 12/07/21. PATIENT REPORTS THAT WEAKNESS HAS WORSENED AND THAT SHE IS BARELY ABLE TO STAND UP ON HER OWN. HER PMH INCLUDES MIGRAINES, GERD, HYPERLIPIDEMIA, INSOMNIA, RESTLESS LEGS. ON ARRIVAL TO THE HOSPITAL, VITALS WERE 101.4-105-20-97%-103/52. LABS WERE OBTAINED. WBC 13.6, RBC 3.53, HGB 10.5, HCT 30.2, PLT COUNT 210, SODIUM 133, POTASSIUM 4.1, CHLORIDE 98, BUN 21, CREATININE 1.78, GLUCOSE 134, CALCIUM 8.6, TOTAL BILI 0.90, AST 394, ALT 245, ALK PHOS 260, TOTAL PROTEIN 7.1, ALBUMIN 2.8, LIPASE 49. URINALYSIS WAS OBTAINED AND REVEALED: WBC TNTC, RBC 5- 10, LEUKOCYTES 3+, BACTERIA TRACE. HEPATITS PANEL ORDERED. COVID, INFLUENZA, AND RSV NEGATIVE. - Past Medical History Past Medical History: Dyslipidemia, Migraines, GERD Additional Medical History: RESTLESS LEGS - Past Surgical History Surgical History: Hysterectomy - Family History Family Medical History: Diabetes Mellitus - Social History Does patient currently use any type of tobacco product: No Have you used tobacco products in the last 12 months: No Type of Tobacco Use: None Does any household member use tobacco: No Alcohol Use: None Drug Use: None - Medications Home Medications: sulfamethoxazole [From Bactrim] Allergy (Verified 12/13/21 14:01) trimethoprim [From Bactrim] Allergy (Verified 12/13/21 14:01) CONTINUE taking the following medications alendronate 10 mg tablet 1 tab PO QDAY 12/13/21 [History] alfuzosin 10 mg tablet,extended release 24 hr 1 tab PO QDAY bladder pain 12/13/21 [History] atorvastatin 20 mg tablet 1 tab PO QPM 12/13/21 [History] cephalexin 500 mg capsule 1 cap PO TID 12/13/21 [History] clonazepam 1 mg tablet 1 tab PO QPM 12/13/21 [History] cyclobenzaprine 10 mg tablet 1 tab PO BID 12/13/21 [History] famotidine 40 mg tablet 1 tab PO QPM 12/13/21 [History] gabapentin 300 mg capsule 1 cap PO BID 12/13/21 [History] pantoprazole 40 mg tablet,delayed release 1 tab PO QDAY 12/13/21 [History] propranolol 20 mg tablet 1 tab PO BID 12/13/21 [History] - Review of Systems Constitutional: No Symptoms Reported. denies: See HPI, Fever, Chills, Sweats, Weakness, Malaise, Other Eyes: No Symptoms Reported. denies: See HPI, Pain, Vision Change, Conjunctivae Inflammation, Eyelid Inflammation, Redness, Other ENT: No Symptoms Reported. denies: See HPI, Ear Pain, Ear Discharge, Nose Pain, Nose Discharge, Nose Congestion, Mouth Pain, Mouth Swelling, Throat Pain, Throat Swelling, Other Respiratory: No Symptoms Reported. denies: See HPI, Cough, Dry, Shortness of Breath, Hemoptysis, SOB with Excertion, Pleuritic Pain, Sputum, Wheezing, Other Cardiovascular: No Symptoms Reported. denies: Chest Pain, See HPI, Palpitations, Orthopnea, Paroxysmal Noc. Dyspnea, Edema, Light Headedness, Other Gastrointestinal: See HPI, Other (GERD). denies: No Symptoms Reported, Nausea, Vomiting, Abdominal Pain, Diarrhea, Constipation, Melena, Hematochezia Genitourinary: No Symptoms Reported. denies: See HPI, Dysuria, Frequency, Incontinence, Hematuria, Retention, Other Musculoskeletal: No Symptoms Reported, See HPI Skin: No Symptoms Reported. denies: See HPI, Rash, Lesions, Jaundice, Bruising, Wound, Ecchymosis, Other Neurological: No Symptoms Reported. denies: See HPI, Weakness, Numbness, Incoordination, Change in Speech, Confusion, Seizures, Other - Physical Exam Vital Signs: Temperature 98.6 F Pulse Rate [Left Brachial] 92 Pulse Rate 91 Respiratory Rate 20 Blood Pressure [Right Arm] 135/62 Blood Pressure 89/55 O2 Sat by Pulse Oximetry 95 Oriented: Normal. negative: Time, Person, Place, Not Oriented, Unable to test, Other Eyes: negative: Normal, Blurred Vision, Diplopia, Discharge, Pain, Redness, Photophobia, Other Ear: negative: Normal, Right, Left, Swelling, Ecchymosis, Hemotypanum, Abrasion, Laceration Nose: negative: Normal, Injected, Discharge, Blood, Other Throat: negative: Normal, Tonsillar Hypertrophy, Red, Exudate, Dry, Other Respiratory: Clear Throughout. negative: Diminished Throughout, Rhonchi Throughout, Rales Throughout, Wheezes Throughout, RUL Clear, RML Clear, RLL Clear, KHURRAM Clear, LML Clear, LLL Clear, RUL Diminished, RML Diminished, RLL Diminished, KHURRAM Diminished, LML Diminished, LLL Diminished, RUL Absent, RML Absent, RLL Absent, KHURRAM Absent, LML Absent, LLL Absent, RUL Rhonchi, RML Rhonchi, RLL Rhonchi, KHURRAM Rhonchi, LML Rhonchi, LLL Rhonchi, RUL Insp. Wheeze, RML Insp. Wheeze, RLL Insp. Wheeze, KHURRAM Insp.Wheeze, LML Insp.Wheeze, LLL Insp.Wheeze, RUL Exp. Wheeze, RML Exp. Wheeze, RLL Exp. Wheeze, KHURRAM Exp. Wheeze, LML Exp. Wheeze, LLL Exp. Wheeze, RUL Rales, RML Rales, RLL Rales, KHURRAM Rales, LML Rales, LLL Rales, RUL Rub, RML Rub, RLL Rub, KHURRAM Rub, LML Rub, LLL Rub, RUL Squeak, RML Squeak, RLL Squeak, KHURRAM Squeak, LML Squeak, LLL Squeak Cardiovascular: Normal. negative: Tachycardia, Bradycardia, Irregular, S3, S4, Systolic, Diastolic, Murmur, Edema, Other : negative: Normal, Dysuria, Hematuria, Frequency, Discharge, Testicular Pain, Bleeding, , Other Auscultation: Bowel Sounds: Normal. negative: Bruit, Absent, Increased, Decreased, High Pitched, Other Palpation: negative: Normal, Spleen Enlarged, Liver Enlarged, Mass Pulsatile, Other Tenderness: Normal. negative: Diffuse, RUQ, RLQ, LUQ, LLQ, Epigastric, Periumbilical, Suprapubic, Mild, Moderate, Severe, Rebound, Guarding, Rigidity, Other Skin: Normal. negative: Decreased Turgur, Rash, Papular, Macular, Maculopapular, Vesicular, Pustular, Petechial, Red, Tender, Hot, Diaphoresis, Wound, Bruising, Ecchymosis, Other Musculoskeletal: Normal. negative: Right, Left, Shoulder, Clavicle, Arm, Elbow, Forearm, Wrist, Hand, Hip, Thigh, Knee, Leg, Ankle, Foot, Back:Thoracic, Back:Lumbar, Back:Midline, Back:Paraspinous, Pelvis, Swelling, Tender, Deformity, Pulse Deficit, Motor Deficit, Sensory Deficit, Instability, Crepitance Psychiatric: Normal. negative: Anxiety, Depression, Agitation, Other Mood Description: Calm. negative: Angry, Apathetic, Depressed, Fearful, Flat, Happy, Hostile, Sad, Suspicious, Withdrawn, Anxious, Appropriate, Labile Affect: Normal. negative: Angry, Anxious, Depressed, Flat, Hysterical, Quiet, Violent Speech Pattern: Clear, Appropriate. negative: Unclear, Inappropriate, Delayed, Slurred, Excessive, Aphasic, Artificially Ventilated, Trach(not ventilated) - Plan Plan: Assessment. 1. Abnormal LFTs. 2. Anemia. 3. H/O GERD. Plan: EGD in AM. Serological workup for various liver diseases. Monitor LFTs. Monitor Hgb, transfuse as needed. Continue Protonix. Plan D/W Dr. Call - Allergies Allergies/Adverse Reactions: Allergies Allergy/AdvReac Type Severity Reaction Status Date / Time sulfamethoxazole Allergy Verified 12/13/21 14:01 [From Bactrim] trimethoprim [From Bactrim] Allergy Verified 12/13/21 14:01
[2021-12-19] MEDS: NEURONTIN CAP 300 MG PO SCH (21:11)
[2021-12-19] MEDS: KLONOPIN TAB 1 MG PO SCH (21:12)
[2021-12-19] MEDS: PEPCID TAB 20 MG PO SCH (21:13)
[2021-12-19] MEDS: LIPITOR TAB 20 MG PO SCH (21:21)
[2021-12-19] MEDS: DEMEROL INJ IVP PRN (22:44)
[2021-12-20] MEDS: NS 1,000 ML IV 1,000 ML IV SCH ×2 (03:08→18:35)
[2021-12-20] MEDS: ZOSYN VIAL 3.375 GRAMS 3.375 G in NS 100 ML IV 100 ML IV SCH ×3 (05:00→22:00)
[2021-12-20] MEDS: DEMEROL INJ IVP PRN ×2 (05:01→21:03)
--- NOTE | 2021-12-20 05:52 | RAD ---
HISTORYSOB Relevant Clinical InformationSTUDYCHEST, 1 [id number] trachea is midline. The cardiac silhouette is unremarkable. The lungs are clear without focal infiltrate or effusion. The bony thorax is unremarkable.IMPRESSIONNo acute cardiopulmonary findings .Electronically signed by: Rajinder Brown (Dec 20, 2021 05:50:12)
[2021-12-20 06:02] LABS: BASOPHILS % (AUTO) 0.5 % (0.2-1.0); EOSINOPHILS # (AUTO) 0.4 x10^3/uL (0.0-0.2); HEMATOCRIT 24.1 % (36.0-47.0); HEMOGLOBIN 8.4 g/dL (12.0-16.0); LYMPHOCYTES # (AUTO) 1.4 X10^3/uL (1.3-2.9); LYMPHOCYTES % (AUTO) 15.3 % (21.0-51.0); MEAN CORPUSCULAR HEMOGLOBIN 29.1 pg (27.0-34.0); MEAN CORPUSCULAR HGB CONC 34.7 g/dL (33.0-35.0); MEAN CORPUSCULAR VOLUME 83.7 fL (80.0-100.0); MEAN PLATELET VOLUME 8.1 fL (7.4-11.0); MONOCYTES # (AUTO) 0.9 x10^3/uL (0.3-0.8); MONOCYTES % (AUTO) 9.7 % (0.0-13.0); NEUTROPHILS # (AUTO) 6.4 x10^3/uL (2.2-4.8); NEUTROPHILS % (AUTO) 70.5 % (42.0-75.0); RED BLOOD COUNT 2.87 X10^6/uL (3.5-5.4); RED CELL DISTRIBUTION WIDTH 13.8 % (11.6-16.5); WHITE BLOOD COUNT 9.1 X10^3/uL (3.6-10.0)
[2021-12-20 06:32] LABS: ALANINE AMINOTRANSFERASE 122 Units/L (12-78); ALBUMIN 2.1 g/dL (3.4-5.0); ALKALINE PHOSPHATASE 310 Units/L (46-116); ASPARTATE AMINO TRANSFERASE 114 Units/L (15-37); BLOOD UREA NITROGEN 7 mg/dL (7-18); CALCIUM 8.4 mg/dL (8.5-10.1); CARBON DIOXIDE 24.7 mmol/L (21-32); CHLORIDE 110 mmol/L (98-107); COR CA(FOR HYPOALB) 9.9 mg/dL (8.5-10.1); CREATININE 0.86 mg/dL (0.55-1.02); SODIUM 145 mmol/L (136-145); TOTAL PROTEIN 6.4 g/dL (6.4-8.2); eGFR NON BLACK RACES > 60 (>60)
[2021-12-20] MEDS: XOPENEX 1.25 MG/3 ML NEBULE NEB SCH ×4 (08:45→20:45)
[2021-12-20] MEDS: PROTONIX TAB 40 MG PO SCH (09:04)
[2021-12-20] MEDS: HEMOCYTE-PLUS PO SCH (09:04)
[2021-12-20] MEDS: K-DUR TAB 20 MEQ PO PRN (09:04)
[2021-12-20] MEDS: ROBITUSSIN DM PO SCH ×4 (09:05→21:03)
[2021-12-20] MEDS: CIPRO IV 400 MG PREMIX* 400 MG/200 ML IV.SOLN. IV SCH ×2 (09:05→20:54)
[2021-12-20] MEDS: LOVENOX INJ 30 MG SYR SC SCH (09:05)
--- NOTE | 2021-12-20 12:10 | PCM.PROG ---
Progress Note - Progress Note for Day of Date of Exam: 12/20/21 - Subjective Subjective: WAS ADMITTED FOR TREATEMENT OF UTI, ACUTE RENAL FAILURE, ELEVATED LIVER ENZYMES, HYPOTENSION. SHE HAD A GALLBLADDER WORK-UP WHICH REVEALED A LOW EJECTION FRACTION. WE CONSULTED GENERAL SURGERY, HOWEVER, DID NOT FEEL THAT SURGICAL INTERVENTION WAS WARRANTED AT THE PRESENT TIME. HE FELT THAT HER SYMPTOMS WERE PROBABLY RELATED TO UTI AND INFECTION RATHER THAN THE GALLBLADDER. TODAY, SHE IS ALERT AND ORIENTED, LYING IN BED ON MORNING ROUNDS. SHE CONTINUES WITH COMPLAINTS OF GENERALIZED WEAKNESS TODAY. ON EXAMINATION, HEART WAS REGULAR IN RATE AND RHYTHM. BILATERAL LUNGS WERE NOTED WITH DIMINISHED LUNG SOUNDS THROUGHOUT. ABDOMEN WAS ROUND, SOFT, AND NON-TENDER WITH HYPOACTIVE BOWEL SOUNDS WERE NOTED. NO UPPER OR LOWER EXTREMITY EDEMA WAS NOTED. HER VITALS THIS MORNING WERE: 97.9-90-18-96%-137/78. LABS WERE OBTAINED. WBC 9.1, RBC 2.87, HGB 8.4, HCT 24.1, PLT COUNT 295, SODIUM 145, POTASSIUM 3.5, CHLORIDE 110, BUN 7, CREATININE 0.86, GLUCOSE 96, CALCIUM 8.4, MAGNESIUM 1.8, TOTAL BILI 0.50, AST 114, ALT 122, ALK PHOS 310, CRP 66.20, TOTAL PROTEIN 6.4, ALBUMIN 2.1, IRON 40, TRANSFERRIN 130, FERRITIN 776, FOLATE 8.4, B12 925. BLOOD AND URINE CULTURES ARE NEGATIVE. SHE IS CURRENTLY RECEIVING NORMAL SALINE AT 125 ML/HR, CIPRO 400MG IV Q12H, ZOSYN 3.375G IV TID, THE POTASSIUM AND MAGNESIUM PROTOCOLS, LOVENOX 30MG SC DAILY, ROBITUSSIN 10ML PO QID, ZOFRAN 4MG IV Q6H PRN, FIORICET 2TABS PO Q8H PRN HEADACHES, AND HER HOME MEDICATIONS WERE RESUMED. WE CONSULTED AND HE PLANS FOR AN EGD THIS MORNING. WE ARE IN AGREEMENT WITH PLANS. OTHERWISE, WE PLAN TO FOLLOW-UP WITH AM LABS AND CONTINUE TO MONITOR. TIME SPENT ON CLINICAL ASSESSMENT, REVIWING LABS AND IMAGING, DECISION MAKING, AND DOCUMENTATION GREATER THAN 45 MINUTES. - Past Medical Family Social History Past Med/Fam/Surg Hx: No changes since H&P Allergies: Allergies sulfamethoxazole [From Bactrim] Allergy (Verified 12/13/21 14:01) trimethoprim [From Bactrim] Allergy (Verified 12/13/21 14:01) - Review of Systems ROS: No change since H&P - Vital Signs and I&O's Vital Signs: Temperature 97.9 F Pulse Rate [Left Brachial] 90 Pulse Rate 93 Respiratory Rate 18 Blood Pressure [Right Arm] 137/78 Blood Pressure 89/55 O2 Sat by Pulse Oximetry 96 Intake and Output: Intake & Output 12/18/21 12/19/21 12/20/21 12/21/21 11:59 11:59 11:59 11:59 Intake Total 2103 / 2103 1928 / 1928 1880 / 1880 Output Total 2800 / 2800 1989 / 1989 1000 / 1000 Balance -697 / -697 -62 / -62 880 / 880 - Physical Exam Oriented: Normal. negative: Time, Person, Place, Not Oriented, Unable to test, Other Eyes: negative: Normal, Blurred Vision, Diplopia, Discharge, Pain, Redness, Photophobia, Other Ear: negative: Normal, Right, Left, Swelling, Ecchymosis, Hemotypanum, Abrasion, Laceration Nose: negative: Normal, Injected, Discharge, Blood, Other Throat: negative: Normal, Tonsillar Hypertrophy, Red, Exudate, Dry, Other Respiratory: Generalized, Diminished Cardiovascular: Normal. negative: Tachycardia, Bradycardia, Irregular, S3, S4, Systolic, Diastolic, Murmur, Edema, Other : negative: Normal, Dysuria, Hematuria, Frequency, Discharge, Testicular Pain, Bleeding, , Other Auscultation: Bowel Sounds: Normal. negative: Bruit, Absent, Increased, Decreased, High Pitched, Other Tenderness: Normal. negative: Diffuse, RUQ, RLQ, LUQ, LLQ, Epigastric, Periumbilical, Suprapubic, Mild, Moderate, Severe, Rebound, Guarding, Rigidity, Other Skin: Normal. negative: Decreased Turgur, Rash, Papular, Macular, Maculopapular, Vesicular, Pustular, Petechial, Red, Tender, Hot, Diaphoresis, Wound, Bruising, Ecchymosis, Other Musculoskeletal: Normal. negative: Right, Left, Shoulder, Clavicle, Arm, Elbow, Forearm, Wrist, Hand, Hip, Thigh, Knee, Leg, Ankle, Foot, Back:Thoracic, Back:Lumbar, Back:Midline, Back:Paraspinous, Pelvis, Swelling, Tender, Deformity, Pulse Deficit, Motor Deficit, Sensory Deficit, Instability, Crepitance Psychiatric: Normal. negative: Anxiety, Depression, Agitation, Other Mood Description: Calm. negative: Angry, Apathetic, Depressed, Fearful, Flat, Happy, Hostile, Sad, Suspicious, Withdrawn, Anxious, Appropriate, Labile Affect: Normal. negative: Angry, Anxious, Depressed, Flat, Hysterical, Quiet, Violent Speech Pattern: Clear - Laboratory and Diagnostics Result Diagrams: 12/20/21 05:37 12/20/21 05:37 Labs: 12/13/21 15:45 Blood Blood Culture - Final 12/13/21 15:30 Blood Blood Culture - Final 12/15/21 10:01 Blood Blood Culture - Preliminary 12/15/21 09:51 Blood Blood Culture - Preliminary 12/13/21 12:46 Urine,Catheterized Urine Culture - Final 12/15/21 12:00 Urine,Catheterized Urine Culture - Final Laboratory WBC 9.1 X10^3/uL (3.6-10.0) 12/20/21 05:37 RBC 2.87 X10^6/uL (3.5-5.4) L 12/20/21 05:37 Hgb 8.4 g/dL (12.0-16.0) L 12/20/21 05:37 Hct 24.1 % (36.0-47.0) L 12/20/21 05:37 MCV 83.7 fL (80.0-100.0) 12/20/21 05:37 MCH 29.1 pg (27.0-34.0) 12/20/21 05:37 MCHC 34.7 g/dL (33.0-35.0) 12/20/21 05:37 RDW 13.8 % (11.6-16.5) 12/20/21 05:37 Plt Count 295 X10^3/uL (150.0-450.0) 12/20/21 05:37 Plt Count Comment Adequate (ADEQUATE) 12/13/21 12:36 MPV 8.1 fL (7.4-11.0) 12/20/21 05:37 Neut % (Auto) 70.5 % (42.0-75.0) 12/20/21 05:37 Lymph % (Auto) 15.3 % (21.0-51.0) L 12/20/21 05:37 [place] % (Auto) 9.7 % (0.0-13.0) 12/20/21 05:37 Eos % (Auto) 4.0 % (0.9-2.9) H 12/20/21 05:37 Baso % (Auto) 0.5 % (0.2-1.0) 12/20/21 05:37 Neut # (Auto) 6.4 x10^3/uL (2.2-4.8) H 12/20/21 05:37 Lymph # (Auto) 1.4 X10^3/uL (1.3-2.9) 12/20/21 05:37 [place] # (Auto) 0.9 x10^3/uL (0.3-0.8) H 12/20/21 05:37 Eos # (Auto) 0.4 x10^3/uL (0.0-0.2) H 12/20/21 05:37 Baso # (Auto) 0.0 X10^3/uL (0.0-0.1) 12/20/21 05:37 Absolute Nucleated RBC 0.0 /100WBC 12/20/21 05:37 Total Counted 100 12/13/21 12:36 Neutrophils % (Manual) 87 % (39-76) H 12/13/21 12:36 Band Neutrophils % 5 % (0-10) 12/13/21 12:36 Lymphocytes % (Manual) 4 % (13-43) L 12/13/21 12:36 Monocytes % (Manual) 4 % (4-9) 12/13/21 12:36 Plt Morphology Comment Normal (NORMAL) 12/13/21 12:36 RBC Morphology Normal (NORMAL) 12/13/21 12:36 D-Dimer 6.46 ug/ml (0.0-0.57) H 12/15/21 13:10 Sodium 145 mmol/L (136-145) 12/20/21 05:37 Corrected Sodium TNP 12/20/21 05:37 Potassium 3.5 mmol/L (3.5-5.1) 12/20/21 05:37 Chloride 110 mmol/L (98-107) H 12/20/21 05:37 Carbon Dioxide 24.7 mmol/L (21-32) 12/20/21 05:37 BUN 7 mg/dL (7-18) 12/20/21 05:37 Creatinine 0.86 mg/dL (0.55-1.02) 12/20/21 05:37 Est GFR (MDRD) Af Amer > 60 (>60) 12/20/21 05:37 Est GFR (MDRD) Non-Af > 60 (>60) 12/20/21 05:37 Glucose 96 mg/dL (65-99) 12/20/21 05:37 Lactic Acid 0.4 mmol/L (0.4-2.0) 12/15/21 05:21 Calcium 8.4 mg/dL (8.5-10.1) L 12/20/21 05:37 Corrected Calcium 9.9 mg/dL (8.5-10.1) 12/20/21 05:37 Magnesium 1.8 mg/dL (2.0-2.9) L 12/20/21 05:37 Iron 40 ug/dL (50-175) L 12/19/21 05:51 Transferrin 130 mg/dL (202-364) L 12/19/21 05:51 Ferritin 776 ng/mL (8-252) H 12/19/21 05:51 Total Bilirubin 0.50 mg/dL (0.2-1.0) 12/20/21 05:37 AST 114 Units/L (15-37) H 12/20/21 05:37 ALT 122 Units/L (12-78) H 12/20/21 05:37 Alkaline Phosphatase 310 Units/L (46-116) H 12/20/21 05:37 Ammonia < 10 umol/L (11-32) L 12/14/21 07:26 Creatine Kinase 477 Units/L (26-192) H 12/15/21 13:10 Troponin I High Sens 27.3 ng/L (4.0-60.0) 12/15/21 13:10 C-Reactive Protein 66.20 mg/L (0-3.0) H 12/20/21 05:37 Total Protein 6.4 g/dL (6.4-8.2) 12/20/21 05:37 Albumin 2.1 g/dL (3.4-5.0) L 12/20/21 05:37 Globulin 4.3 g/dL (2.5-4.5) 12/20/21 05:37 Albumin/Globulin Ratio 0.5 Ratio (1.1-2.1) L 12/20/21 05:37 Lipase 49 Units/L (73-393) L 12/13/21 12:36 Vitamin B12 925 pg/mL (193-986) 12/19/21 05:51 Folate 8.4 ng/mL (>8.6) L 12/19/21 05:51 Specimen Type Catherized urine 12/15/21 12:00 Urine Color Straw (YELLOW) 12/15/21 12:00 Urine Appearance Clear (CLEAR) 12/15/21 12:00 Urine pH 6.0 (5.0 - 8.0) 12/15/21 12:00 Ur Specific [place] 1.010 (1.000-1.030) 12/15/21 12:00 Urine Protein 2+ (NEGATIVE) 12/15/21 12:00 Urine Glucose (UA) Negative (NEGATIVE) 12/15/21 12:00 Urine Ketones Negative (NEGATIVE) 12/15/21 12:00 Urine Blood 4+ (NEGATIVE) 12/15/21 12:00 Urine Nitrite Negative (NEGATIVE) 12/15/21 12:00 Urine Bilirubin Negative (NEGATIVE) 12/15/21 12:00 Urine Urobilinogen Normal (NORMAL) 12/15/21 12:00 Ur Leukocyte Esterase 3+ (NEGATIVE) 12/15/21 12:00 Urine RBC 3-5 /HPF (0-3) A 12/15/21 12:00 Urine WBC Tntc /HPF (0-5) A 12/15/21 12:00 Ur Squamous Epith Cells Few /HPF (NEGATIVE) 12/15/21 12:00 Urine Bacteria Trace /HPF (NEGATIVE) 12/15/21 12:00 Ur Culture Indicated? Yes/culture set up 12/15/21 12:00 SARS-CoV-2 (PCR) Negative (NEGATIVE) 12/13/21 12:46 Hepatitis A IgM Ab Negative (Negative) 12/13/21 12:36 Hep Bs Antigen Negative (Negative) 12/13/21 12:36 Hep Bs Ag Confirmation TNP 12/13/21 12:36 Hep B Core IgM Ab Negative (Negative) 12/13/21 12:36 Hepatitis C Ab Index <0.02 IV 12/13/21 12:36 Hepatitis C Interp Negative (Negative) 12/13/21 12:36 Hepatitis Interpret See note 12/13/21 12:36 Influenza Type A (PCR) Negative (NEGATIVE) 12/13/21 12:46 Influenza Type B (PCR) Negative (NEGATIVE) 12/13/21 12:46 RSV (PCR) Negative (NEGATIVE) 12/13/21 12:46 - Plan (1) Complicated urinary tract infection Status: Acute Plan: IV ATBX THERAPY, GENTLE IV HYDRATION WITH STRICT I&OS. REPEAT AM LABS AND CXR, RESP THERAPY, SUPPLEMENTAL O2, ANTITUSSIVES, PT, BP AND CARDIAC MONITORING, OBTAIN MRCP TODAY (2) Acute bronchitis Status: Acute Qualifiers: Bronchitis organism: unspecified organism Qualified Code(s): J20.9 - Acute bronchitis, unspecified (3) Pleural effusion Status: Acute (4) Elevated liver enzymes Status: Acute Plan: OBTAIN HIDA SCAN (5) Hypotension Status: Resolved Qualifiers: Hypotension type: unspecified hypotension type Qualified Code(s): I95.9 - Hypotension, unspecified (6) Headache Status: Resolved Qualifiers: Headache type: unspecified Headache chronicity pattern: episodic headache Intractability: not intractable Qualified Code(s): R51.9 - Headache, unspecified
[2021-12-20] MEDS ORDERED: DIPRIVAN VIAL 20 ML ONE (12:39)
[2021-12-20] MEDS: KLONOPIN TAB 1 MG PO SCH (20:52)
[2021-12-20] MEDS: PEPCID TAB 20 MG PO SCH (20:52)
[2021-12-20] MEDS: LIPITOR TAB 20 MG PO SCH (20:53)
[2021-12-20] MEDS: NEURONTIN CAP 300 MG PO SCH (20:53)
[2021-12-20] MEDS: MAGNESIUM SULFATE 1 GRAM/100 mL PREMIX 1 G/100 ML BAG IV PRN (23:33)
[2021-12-21] MEDS: MAGNESIUM SULFATE 1 GRAM/100 mL PREMIX 1 G/100 ML BAG IV PRN (01:00)
[2021-12-21] MEDS: NS 1,000 ML IV 1,000 ML IV SCH (02:00)
--- NOTE | 2021-12-21 05:14 | RAD ---
HISTORYSOB Relevant Clinical InformationSTUDYCHEST, 1 [id number]/2022FINDINGSThe trachea is midline. The cardiac silhouette is unremarkable. The lungs are clear without focal infiltrate or effusion. Linear atelectasis in the right lung base. The bony thorax is unremarkable.IMPRESSIONRight basilar linear atelectasis..Electronically signed by: Rajinder Brown (Dec 21, 2021 05:12:37)
[2021-12-21] MEDS: ZOSYN VIAL 3.375 GRAMS 3.375 G in NS 100 ML IV 100 ML IV SCH (05:58)
[2021-12-21 06:05] LABS: BASOPHILS # (AUTO) 0.1 X10^3/uL (0.0-0.1); BASOPHILS % (AUTO) 0.7 % (0.2-1.0); EOSINOPHILS # (AUTO) 0.3 x10^3/uL (0.0-0.2); EOSINOPHILS % (AUTO) 3.7 % (0.9-2.9); HEMATOCRIT 23.6 % (36.0-47.0); HEMOGLOBIN 8.2 g/dL (12.0-16.0); LYMPHOCYTES # (AUTO) 1.6 X10^3/uL (1.3-2.9); LYMPHOCYTES % (AUTO) 19.6 % (21.0-51.0); MEAN CORPUSCULAR HEMOGLOBIN 29.1 pg (27.0-34.0); MEAN CORPUSCULAR HGB CONC 34.7 g/dL (33.0-35.0); MEAN CORPUSCULAR VOLUME 83.8 fL (80.0-100.0); MEAN PLATELET VOLUME 8.2 fL (7.4-11.0); MONOCYTES # (AUTO) 0.9 x10^3/uL (0.3-0.8); MONOCYTES % (AUTO) 10.5 % (0.0-13.0); NEUTROPHILS # (AUTO) 5.5 x10^3/uL (2.2-4.8); NEUTROPHILS % (AUTO) 65.5 % (42.0-75.0); RED BLOOD COUNT 2.81 X10^6/uL (3.5-5.4); WHITE BLOOD COUNT 8.4 X10^3/uL (3.6-10.0)
[2021-12-21 06:08] LABS: ALANINE AMINOTRANSFERASE 95 Units/L (12-78); ALBUMIN 2.1 g/dL (3.4-5.0); ALKALINE PHOSPHATASE 262 Units/L (46-116); ASPARTATE AMINO TRANSFERASE 73 Units/L (15-37); BLOOD UREA NITROGEN 7 mg/dL (7-18); CALCIUM 8.3 mg/dL (8.5-10.1); CARBON DIOXIDE 26.4 mmol/L (21-32); CHLORIDE 109 mmol/L (98-107); COR CA(FOR HYPOALB) 9.8 mg/dL (8.5-10.1); CREATININE 0.76 mg/dL (0.55-1.02); SODIUM 144 mmol/L (136-145); TOTAL PROTEIN 6.2 g/dL (6.4-8.2); eGFR NON BLACK RACES > 60 (>60)
[2021-12-21] MEDS: KLOR-CON PO PRN (06:26)
[2021-12-21] MEDS: TYLENOL 325 MG TAB PO PRN (07:22)
[2021-12-21] MEDS: ZOFRAN INJ 4 MG VIAL IVP PRN (07:24)
[2021-12-21] MEDS: XOPENEX 1.25 MG/3 ML NEBULE NEB SCH (08:26)
[2021-12-21] MEDS: LOVENOX INJ 30 MG SYR SC SCH (09:08)
[2021-12-21] MEDS: ROBITUSSIN DM PO SCH (09:10)
[2021-12-21] MEDS: PROTONIX TAB 40 MG PO SCH (09:10)
[2021-12-21] MEDS: HEMOCYTE-PLUS PO SCH (09:10)
[2021-12-21 10:42] VITALS: BP 138/65
[2021-12-21] MEDS: CIPRO IV 400 MG PREMIX* 400 MG/200 ML IV.SOLN. IV SCH (10:45)
[2021-12-24 06:16] LABS: ANTI-NUCLEAR ANTIBODY TEST None Detected (None Detected)
== END 2021-12-21 11:42 | disposition home or self-care (01) | DRG 690 ==
LOC: ER 12:30 → MED/SURG 15:49
PROVIDERS: ADMIT Internal Medicine; ATTEND Internal Medicine
DX: R51.9 Headache, unspecified; K21.00 Gastro-esophageal reflux disease with esophagitis, without bleeding; R94.5 Abnormal results of liver function studies; R26.89 Other abnormalities of gait and mobility; Z20.822 Contact with and (suspected) exposure to COVID-19; R79.82 Elevated C-reactive protein (CRP); J90 Pleural effusion, not elsewhere classified; I95.89 Other hypotension; G25.81 Restless legs syndrome; R06.02 Shortness of breath; K44.9 Diaphragmatic hernia without obstruction or gangrene; N39.0 Urinary tract infection, site not specified; N17.8 Other acute kidney failure; R10.84 Generalized abdominal pain; E83.09 Other disorders of copper metabolism; D50.8 Other iron deficiency anemias; K29.00 Acute gastritis without bleeding; E78.2 Mixed hyperlipidemia

== ENCOUNTER 2022-11-20 08:29 | Observation (INO) ==
--- NOTE | 2022-11-20 08:32 | DR.GENAD ---
HPI Time Seen Time Seen by Provider: 11/20/22 08:34 Complaint/Symptoms Chief Complaint Doctors Comments: 67 y/o female presents for evaluation. Having increasing weakness, chills since yesterday. Pt self caths (due to pelvic floor ssues), has noticed her urine to be cloudy. No URI symptoms. Having some nausea, no vomiting. No change in BM's, fights chronic constipation. No significant pain. Nurses notes reviewed Nurses Notes Review: Yes Source History Provided: Patient Mode of Arrival Mode of Arrival: Wheelchair PMH PMH Past Medical History: Dyslipidemia, Migraines and GERD Past Surgical History: Yes Surgical History: Hysterectomy Family History Family Medical History: Diabetes Mellitus Social History Does patient currently use any type of tobacco product: No Do you use any recreational Drugs:: No ROS Review of Systems Constitutional: Chills and Weakness Eyes: No Symptoms Reported ENTM: No Symptoms Reported Respiratoy: No Symptoms Reported Cardiovascular: No Symptoms Reported Gastrointestinal/Abdominal: Nausea Genitourinary: See HPI Neurological: Weakness Musculoskeletal: No Symptoms Reported Integumentary: No Symptoms Reported All Other Systems: Reviewed and Negative PE Vital Signs Vitals: Vital Signs Temperature 98.2 F Pulse Rate 73 Pulse Rate 72 Pulse Rate 74 Pulse Rate 74 Pulse Rate 74 Pulse Rate 77 Pulse Rate 77 Pulse Rate 76 Pulse Rate 82 Pulse Rate 84 Pulse Rate 89 Pulse Rate 86 Respiratory Rate 21 Respiratory Rate 20 Respiratory Rate 19 Respiratory Rate 22 Respiratory Rate 20 Respiratory Rate 22 Respiratory Rate 20 Respiratory Rate 21 Respiratory Rate 18 Respiratory Rate 21 Respiratory Rate 18 Respiratory Rate 16 Blood Pressure 102/58 Blood Pressure 102/58 Blood Pressure 102/58 Blood Pressure 102/56 Blood Pressure 93/52 Blood Pressure 96/53 Blood Pressure 88/51 Blood Pressure 83/53 Blood Pressure 83/53 Blood Pressure 83/53 Blood Pressure 83/53 Blood Pressure 83/53 Blood Pressure 83/53 O2 Sat by Pulse Oximetry 99 O2 Sat by Pulse Oximetry 98 O2 Sat by Pulse Oximetry 99 O2 Sat by Pulse Oximetry 99 O2 Sat by Pulse Oximetry 98 O2 Sat by Pulse Oximetry 98 O2 Sat by Pulse Oximetry 98 O2 Sat by Pulse Oximetry 98 O2 Sat by Pulse Oximetry 97 O2 Sat by Pulse Oximetry 95 O2 Sat by Pulse Oximetry 96 O2 Sat by Pulse Oximetry 96 General General Appearance: Alert and In No Apparent Distress Eyes Eye exam: PERRL and EOMI ENT ENT Exam: Normal Oropharynx and Other (dried lips) Neck Neck Exam: Normal Inspection Respiratory Respiratory Exam: Normal Lung Sounds Bilat; negative Accessory Muscle Use or Respiratory Distress Cardiovascular Cardiovascular Exam: Regular Rate, Normal Rhythm and Normal Heart Sounds Abdominal Exam Abdominal Exam: Normal Bowel Sounds and Soft; negative Tenderness or Guarding Extremities Extremities Exam: Normal Inspection; negative Edema Neurologic Neurological Exam: Alert, Oriented X3 and CN II-XII Intact; negative Motor Sensory Deficit Skin Skin Exam: Warm and Dry COURSE Treatment Treatment: 67 y/o female with probable UTI, weakness. + low BP , but pt states she frequently runs a low BP. W/u initiated. Pt given IV fluids. U/A with TNTC WBCs, given IV rocephin. WBC elevated to 14K, lactic acid acceptable. BP improved after IV fluids. Feeling better. Pt with UTI, low BP. 1010 - discussed with Dr Daigle, he would like to admit her for the day, to continue IV fluids in view of her low BP. No evidence for sepss at this time. ROR Labs Reviewed Laboratory Results Reviewed?: Yes 11/20/22 08:35 11/20/22 08:35 Laboratory: WBC 14.5 X10^3/uL (3.6-10.0) H 11/20/22 08:35 RBC 3.93 X10^6/uL (3.5-5.4) 11/20/22 08:35 Hgb 11.3 g/dL (12.0-16.0) L 11/20/22 08:35 Hct 33.4 % (36.0-47.0) L 11/20/22 08:35 MCV 84.8 fL (80.0-100.0) 11/20/22 08:35 MCH 28.8 pg (27.0-34.0) 11/20/22 08:35 MCHC 33.9 g/dL (33.0-35.0) 11/20/22 08:35 RDW 13.5 % (11.6-16.5) 11/20/22 08:35 Plt Count 201 X10^3/uL (150.0-450.0) 11/20/22 08:35 MPV 9.4 fL (7.4-11.0) 11/20/22 08:35 Neut % (Auto) 86.8 % (42.0-75.0) H 11/20/22 08:35 Lymph % (Auto) 8.0 % (21.0-51.0) L 11/20/22 08:35 [place] % (Auto) 4.9 % (0.0-13.0) 11/20/22 08:35 Eos % (Auto) 0.2 % (0.9-2.9) L 11/20/22 08:35 Baso % (Auto) 0.1 % (0.2-1.0) L 11/20/22 08:35 Neut # (Auto) 12.6 x10^3/uL (2.2-4.8) H 11/20/22 08:35 Lymph # (Auto) 1.2 X10^3/uL (1.3-2.9) L 11/20/22 08:35 [place] # (Auto) 0.7 x10^3/uL (0.3-0.8) 11/20/22 08:35 Eos # (Auto) 0.0 x10^3/uL (0.0-0.2) 11/20/22 08:35 Baso # (Auto) 0.0 X10^3/uL (0.0-0.1) 11/20/22 08:35 Absolute Nucleated RBC 0.0 /100WBC 11/20/22 08:35 Sodium 138 mmol/L (136-145) 11/20/22 08:35 Corrected Sodium 139 mmol/L (136-145) 11/20/22 08:35 Potassium 3.7 mmol/L (3.5-5.1) 11/20/22 08:35 Chloride 103 mmol/L (98-107) 11/20/22 08:35 Carbon Dioxide 27.9 mmol/L (21-32) 11/20/22 08:35 BUN 19 mg/dL (7-18) H 11/20/22 08:35 Creatinine 1.42 mg/dL (0.55-1.02) H 11/20/22 08:35 Est GFR (MDRD) Af Amer 48 (>60) L 11/20/22 08:35 Est GFR (MDRD) Non-Af 39 (>60) L 11/20/22 08:35 Glucose 121 mg/dL (65-99) H 11/20/22 08:35 Lactic Acid 0.9 mmol/L (0.4-2.0) 11/20/22 08:35 Calcium 8.4 mg/dL (8.5-10.1) L 11/20/22 08:35 Corrected Calcium 9.2 mg/dL (8.5-10.1) 11/20/22 08:35 Total Bilirubin 0.40 mg/dL (0.2-1.0) 11/20/22 08:35 AST 89 Units/L (15-37) H 11/20/22 08:35 ALT 63 Units/L (12-78) 11/20/22 08:35 Alkaline Phosphatase 73 Units/L (46-116) 11/20/22 08:35 Total Protein 7.0 g/dL (6.4-8.2) 11/20/22 08:35 Albumin 3.0 g/dL (3.4-5.0) L 11/20/22 08:35 Globulin 4.0 g/dL (2.5-4.5) 11/20/22 08:35 Albumin/Globulin Ratio 0.8 Ratio (1.1-2.1) L 11/20/22 08:35 Lipase 65 Units/L (73-393) L 11/20/22 08:35 Specimen Type Catherized urine 11/20/22 08:48 Urine Color Yellow (YELLOW) 11/20/22 08:48 Urine Appearance Hazy (CLEAR) 11/20/22 08:48 Urine pH 7.0 (5.0 - 8.0) 11/20/22 08:48 Ur Specific [place] 1.015 (1.000-1.030) 11/20/22 08:48 Urine Protein 2+ (NEGATIVE) 11/20/22 08:48 Urine Glucose (UA) Negative (NEGATIVE) 11/20/22 08:48 Urine Ketones Negative (NEGATIVE) 11/20/22 08:48 Urine Blood 4+ (NEGATIVE) 11/20/22 08:48 Urine Nitrite Positive (NEGATIVE) 11/20/22 08:48 Urine Bilirubin Negative (NEGATIVE) 11/20/22 08:48 Urine Urobilinogen Normal (NORMAL) 11/20/22 08:48 Ur Leukocyte Esterase 3+ (NEGATIVE) 11/20/22 08:48 Urine RBC 10-20 /HPF (0-3) A 11/20/22 08:48 Urine WBC Tntc /HPF (0-5) A 11/20/22 08:48 Ur Squamous Epith Cells Negative /HPF (NEGATIVE) 11/20/22 08:48 Urine Bacteria 2+ /HPF (NEGATIVE) 11/20/22 08:48 Ur Culture Indicated? Yes/culture set up 11/20/22 08:48 + UTI XRAY XRAY Interpreted by: Both X-ray Results: EXAM: CHEST x-ray, 1 VIEW HISTORY: LOW BLOOD PRESSURE; - COMPARISON: X-ray 12/21/2021 FINDINGS: Heart is normal in size. Mild vague lower lobe densities are seen that are probable atelectasis. These changes are very similar to prior study. Probable COPD. Mild blunting the left CP angle could be associated with COPD atelectasis, or small pleural effusion. IMPRESSION: Probable persistent bibasilar atelectasis Probable COPD. Mild blunting of left CP angle could be a small left pleural effusion but may be associated with COPD or atelectasis. THIS IS AN ELECTRONICALLY VERIFIED FINAL REPORT 11/20/2022 10:14 AM - Electronically signed by Justice Staton MD Opioid Opioid Risk Tool Age (Willy box if 16-45): No History of Preadolescent Sexual Abuse: No Total: 0 Total Score Risk Category: Low Risk Copyright: Ishmael VELASQUEZ predicting aberrant behaviors Discharge Plan Diagnosis Discharge Problem: Acute UTI, Hypotension Discharge Plan Patient Disposition: 09 ADMITTED INPATIENT Condition: Stable Orders to Discharge Patient Discharge Orders: Transfer (Routine); Ordered 11/20/22 Ordered By: Rafi Rivera
[2022-11-20] MEDS ORDERED: NS 1,000 ML IV 1,000 ML IV ONE (08:34)
[2022-11-20] MEDS ORDERED: NS 1,000 ML IV 1,000 ML ONE (08:37)
[2022-11-20 08:51] VITALS: BMI 21.1
[2022-11-20 09:05] LABS: BASOPHILS % (AUTO) 0.1 % (0.2-1.0); EOSINOPHILS % (AUTO) 0.2 % (0.9-2.9); HEMATOCRIT 33.4 % (36.0-47.0); HEMOGLOBIN 11.3 g/dL (12.0-16.0); LYMPHOCYTES # (AUTO) 1.2 X10^3/uL (1.3-2.9); MEAN CORPUSCULAR HEMOGLOBIN 28.8 pg (27.0-34.0); MEAN CORPUSCULAR HGB CONC 33.9 g/dL (33.0-35.0); MEAN CORPUSCULAR VOLUME 84.8 fL (80.0-100.0); MEAN PLATELET VOLUME 9.4 fL (7.4-11.0); MONOCYTES # (AUTO) 0.7 x10^3/uL (0.3-0.8); MONOCYTES % (AUTO) 4.9 % (0.0-13.0); NEUTROPHILS # (AUTO) 12.6 x10^3/uL (2.2-4.8); NEUTROPHILS % (AUTO) 86.8 % (42.0-75.0); PLATELET COUNT 201 X10^3/uL (150.0-450.0); RED BLOOD COUNT 3.93 X10^6/uL (3.5-5.4); RED CELL DISTRIBUTION WIDTH 13.5 % (11.6-16.5); WHITE BLOOD COUNT 14.5 X10^3/uL (3.6-10.0)
[2022-11-20 09:06] LABS: APPEARANCE,URINE HAZY (CLEAR); BILIRUBIN,URINE NEGATIVE (NEGATIVE); BLOOD/HEMOGLOBIN,URINE 4+ (NEGATIVE); COLOR,URINE YELLOW (YELLOW); GLUCOSE, URINE NEGATIVE (NEGATIVE); KETONES,URINE NEGATIVE (NEGATIVE); LEUKOCYTE ESTERASE ,URINE 3+ (NEGATIVE); NITRITES,URINE POSITIVE (NEGATIVE); PROTEIN,URINE 2+ (NEGATIVE); UROBILINOGEN,URINE NORMAL (NORMAL)
[2022-11-20 09:14] LABS: BACTERIA,URINE 2+ /HPF (NEGATIVE); SQUAMOUS EPITHELIAL CELL,UR NEGATIVE /HPF (NEGATIVE)
[2022-11-20] MEDS ORDERED: ROCEPHIN VIAL 1 GRAM IVP STA (09:18)
[2022-11-20] MEDS ORDERED: ROCEPHIN VIAL 1 GRAM ONE (09:19)
[2022-11-20 09:22] LABS: CALCIUM 8.4 mg/dL (8.5-10.1); CARBON DIOXIDE 27.9 mmol/L (21-32); COR CA(FOR HYPOALB) 9.2 mg/dL (8.5-10.1); CREATININE 1.42 mg/dL (0.55-1.02); POTASSIUM 3.7 mmol/L (3.5-5.1)
[2022-11-20] MEDS: ROCEPHIN VIAL 1 GRAM 1 G in NS 100 ML IV 100 ML IV SCH (10:13)
--- NOTE | 2022-11-20 10:18 | RAD ---
EXAM:CHEST x-ray, 1 VIEWHISTORY:LOW BLOOD PRESSURE; -COMPARISON:X-ray 12/21/2021FINDINGS:Heart is normal in size. Mild vague lower lobe densities are seen that are probable atelectasis. These changes are very similar to prior study. Probable COPD. Mild blunting the left CP angle could be associated with COPD atelectasis, or small pleural effusion.IMPRESSION:Probable persistent bibasilar atelectasisProbable COPD.Mild blunting of left CP angle could be a small left pleural effusion but may be associated with COPD or atelectasis.THIS IS AN ELECTRONICALLY VERIFIED FINAL [id number]/20/2022 10:14 AM - Electronically signed by Justice Staton MD
[2022-11-20] MEDS: D5 NS 1,000 ML IV 1,000 ML IV SCH ×2 (12:20→20:27)
[2022-11-20] MEDS ORDERED: NORCO 10/325 TAB PO PRN ×2 (13:11→22:04)
--- NOTE | 2022-11-20 13:11 | DR.H&P ---
H&P - History & Physical for Day of: H&P Date: 11/20/22 - Chief Complaint Chief Complaint: WEAKNESS, CHILLS, NAUSEA - History of Present Illness History of Present Illness: IS A 67 YEAR OLD PATIENT OF OURS. SHE HAS A PMH OF DYSLIPIDEMIA, MIGRAINES, GERD, AND HYSTERECTOMY. SHE PRESENTED TO THE ER WITH COMPLAINTS OF INCREASING WEAKNESS, CHILLS, AND NAUSEA. PATIENT REPORTS THAT SHE SELF CATHS DUE TO PELVIC FLOOR ISSUES. SHE REPORTS THAT SHE HAS NOTICED THAT HER URINE HAS BEEN MORE CLOUDY. SHE DENIES CHANGES IN BOWEL MOVEMENTS, BUT DOES REPORT THAT SHE HAS CHRONIC CONSTIPATION. SHE DENIES ANY VOMITING. ON ARRIVAL, HER VITALS WERE 98.2-89-18-96%-83/53. LABS WERE OBTAINED. WBC 14.5, RBC 3.93, HGB 11.3, HCT 33.4, PLT COUNT 201, SODIUM 138, POTASSIUM 3.7, CHLORIDE 103, CARBON DIOXIDE 27.9, BUN 19, CREATININE 1.42, GLUCOSE 121, CALCIUM 8.4, TOTAL BILI 0.40, AST 89, ALT 63, ALK PHOS 73, TOTAL PROTEIN 7.0, ALBUMIN 3.0. A URINALYSIS WAS OBTAINED AND REVEALED: WBC TNTC, RBC 10-20, LEUKOCYTES 3+, BACTERIA 2+, NITRITE POSITIVE. BLOOD AND URINE CULTURES WERE SET UP. A CHEST XRAY WAS OBTAINED TODAY AND REVEALED: Probable persistent bibasilar atelectasis. Probable COPD. Mild blunting of left CP angle could be a small left pleural effusion but may be associated with COPD or atelectasis. IN THE ER, SHE WAS GIVEN A NORMAL SALINE BOLUS AND ROCEPHIN 1G IV. EVEN AFTER BOLUS, PATIENTS BLOOD PRESSURE REMAINED 102/56. SHE WAS ADMITTED TO THE HOSPITAL FOR FURTHER EVALUATION AND TREATMENT OF ACUTE UTI AND HYPOTENSION. SHE WAS STARTED ON D51/2 NS AT 125 ML/HR AND ROCEPHIN 1G IV DAILY. WE WILL RESUME HER HOME MEDICATIONS OF COLACE, PROBIOTICS, PANTOPRAZOLE, MAGNESIUM OXIDE, ALENDRONATE, ROPINIROLE, NORCO, GABAPENTIN, FAMOTIDINE, AND CLONAZEPAM. OTHERWISE, WE PLAN TO FOLLOW UP WITH AM LABS AND CONTINUE TO MONITOR. TIME SPENT ON CLINICAL ASSESSMENT, REVIEWING LABS AND IMAGING, DECISION MAKING, AND DOCUMENTATION GREATER THAN 75 MINUTES. - Past Medical History Past Medical History: Dyslipidemia, GERD, Migraines Additional Medical History: RESTLESS LEGS - Past Surgical History Surgical History: Hysterectomy - Family History Family Medical History: Diabetes Mellitus - Social History Does patient currently use any type of tobacco product: No Have you used tobacco products in the last 12 months: No Type of Tobacco Use: None Does any household member use tobacco: No Alcohol Use: None Drug Use: None - Review of Systems Constitutional: Chills, Weakness Eyes: No Symptoms Reported ENT: No Symptoms Reported Respiratory: No Symptoms Reported Cardiovascular: No Symptoms Reported Gastrointestinal: Nausea, Abdominal Pain, Constipation Genitourinary: No Symptoms Reported Musculoskeletal: No Symptoms Reported Skin: No Symptoms Reported Neurological: Weakness - Physical Exam Vital Signs: Vital Signs Temperature 97.8 F Temperature 98.2 F Pulse Rate [Right Brachial] 67 Pulse Rate 74 Pulse Rate 75 Pulse Rate 75 Pulse Rate 74 Pulse Rate 73 Pulse Rate 73 Pulse Rate 72 Pulse Rate 74 Pulse Rate 74 Pulse Rate 74 Pulse Rate 77 Pulse Rate 77 Pulse Rate 76 Pulse Rate 82 Pulse Rate 84 Pulse Rate 89 Pulse Rate 86 Respiratory Rate 20 Respiratory Rate 19 Respiratory Rate 25 Respiratory Rate 28 Respiratory Rate 23 Respiratory Rate 22 Respiratory Rate 21 Respiratory Rate 20 Respiratory Rate 19 Respiratory Rate 22 Respiratory Rate 20 Respiratory Rate 22 Respiratory Rate 20 Respiratory Rate 21 Respiratory Rate 18 Respiratory Rate 21 Respiratory Rate 18 Respiratory Rate 16 Blood Pressure [Right Arm] 103/51 Blood Pressure 99/57 Blood Pressure 101/55 Blood Pressure 101/60 Blood Pressure 103/56 Blood Pressure 102/58 Blood Pressure 102/58 Blood Pressure 102/58 Blood Pressure 102/56 Blood Pressure 93/52 Blood Pressure 96/53 Blood Pressure 88/51 Blood Pressure 83/53 Blood Pressure 83/53 Blood Pressure 83/53 Blood Pressure 83/53 Blood Pressure 83/53 Blood Pressure 83/53 O2 Sat by Pulse Oximetry 98 O2 Sat by Pulse Oximetry 99 O2 Sat by Pulse Oximetry 98 O2 Sat by Pulse Oximetry 98 O2 Sat by Pulse Oximetry 98 O2 Sat by Pulse Oximetry 98 O2 Sat by Pulse Oximetry 99 O2 Sat by Pulse Oximetry 98 O2 Sat by Pulse Oximetry 99 O2 Sat by Pulse Oximetry 99 O2 Sat by Pulse Oximetry 98 O2 Sat by Pulse Oximetry 98 O2 Sat by Pulse Oximetry 98 O2 Sat by Pulse Oximetry 98 O2 Sat by Pulse Oximetry 97 O2 Sat by Pulse Oximetry 95 O2 Sat by Pulse Oximetry 96 O2 Sat by Pulse Oximetry 96 Oriented: Normal Eyes: Normal Ear: Normal Nose: Normal Throat: Normal Respiratory: Diminished Throughout Cardiovascular: Normal : Normal Auscultation: Bowel Sounds: Normal Palpation: Normal Tenderness: Suprapubic Skin: Normal Musculoskeletal: Normal Psychiatric: Normal Mood Description: Calm Affect: Normal Speech Pattern: Clear - Assessment/Plan (1) Acute UTI Status: Acute Plan: ADMIT, D51/2 NS AT 125 ML/HR AND ROCEPHIN 1G IV DAILY, RESUME HOME MEDS (2) Dehydration Status: Acute (3) Hypotension Qualifiers: Hypotension type: unspecified hypotension type Qualified Code(s): I95.9 - Hypotension, unspecified Status: Acute (4) COPD (chronic obstructive pulmonary disease) Qualifiers: COPD type: unspecified COPD Qualified Code(s): J44.9 - Chronic obstructive pulmonary disease, unspecified Status: Acute (5) GERD (gastroesophageal reflux disease) Qualifiers: Esophagitis presence: esophagitis presence not specified Qualified Code(s): K21.9 - Gastro-esophageal reflux disease without esophagitis Status: Chronic Plan: RESUME PANTOPRAZOLE AND FAMOTIDINE (6) Restless leg syndrome Status: Chronic Plan: RESUME R[place]INIROLE (7) Insomnia Qualifiers: Insomnia type: primary Qualified Code(s): F51.01 - Primary insomnia Status: Chronic Plan: RESUME CLONAZEPAM - Allergies Allergies/Adverse Reactions: Allergies Allergy/AdvReac Type Severity Reaction Status Date / Time sulfamethoxazole Allergy Verified 12/13/21 14:01 [From Bactrim] trimethoprim [From Bactrim] Allergy Verified 12/13/21 14:01 - Medications Home Medications: Home Medications Medication Instructions Recorded Confirmed Lactobacillus acidophilus 10 10 cell PO DAILY 11/20/22 11/20/22 billion cell capsule (Probiotic) alendronate 10 mg tablet 10 mg PO DAILY 11/20/22 11/20/22 clonazepam 1 mg tablet 1 mg PO QPM 11/20/22 11/20/22 docusate sodium 100 mg capsule 200 mg PO HS 11/20/22 11/20/22 (Colace) famotidine 20 mg tablet 20 mg PO BID 11/20/22 11/20/22 gabapentin 300 mg capsule 300 mg PO BID 11/20/22 11/20/22 galcanezumab-gnlm 120 mg/mL 120 mg subcut QMONTH 11/20/22 11/20/22 subcutaneous pen injector (Emgality Pen) hydrocodone 10 mg-acetaminophen 1 tab PO TID PRN pain 11/20/22 11/20/22 325 mg tablet magnesium oxide 500 mg tablet 1,000 mg PO HS 11/20/22 11/20/22 (Servando) nitrofurantoin 1 cap PO BID 11/20/22 11/20/22 monohydrate/macrocrystals 100 mg capsule pantoprazole 40 mg tablet,delayed 40 mg PO DAILY 11/20/22 11/20/22 release rizatriptan 10 mg tablet 20 mg PO DAILY PRN 11/20/22 11/20/22 ropinirole 1 mg tablet 1 mg PO BID 11/20/22 11/20/22
[2022-11-20] MEDS: REQUIP PO SCH (20:26)
[2022-11-20] MEDS: KLONOPIN TAB 1 MG PO SCH (20:26)
[2022-11-20] MEDS: COLACE CAP 100 MG PO SCH (20:26)
[2022-11-20] MEDS: MAG-OX TAB PO SCH (20:26)
[2022-11-20] MEDS: PEPCID TAB 20 MG PO SCH (20:26)
[2022-11-20] MEDS: NEURONTIN CAP 300 MG PO SCH (20:26)
[2022-11-20] MEDS ORDERED: CONSULT PHARMACY - POTASSIUM & MAGNESIUM XX SCH (22:04)
[2022-11-20] MEDS ORDERED: KLONOPIN TAB 1 MG PO SCH (22:04)
[2022-11-20] MEDS ORDERED: NEURONTIN CAP 300 MG PO SCH (22:04)
[2022-11-20] MEDS ORDERED: PEPCID TAB 20 MG PO SCH (22:04)
[2022-11-20] MEDS ORDERED: REQUIP PO SCH (22:04)
[2022-11-20] MEDS ORDERED: K-DUR TAB 20 MEQ PO SCH (23:00)
[2022-11-21] MEDS: D5 NS 1,000 ML IV 1,000 ML IV SCH ×3 (03:53→21:29)
[2022-11-21 08:56] LABS: BASOPHILS % (AUTO) 0.1 % (0.2-1.0); EOSINOPHILS # (AUTO) 0.2 x10^3/uL (0.0-0.2); EOSINOPHILS % (AUTO) 2.3 % (0.9-2.9); HEMATOCRIT 28.7 % (36.0-47.0); HEMOGLOBIN 9.9 g/dL (12.0-16.0); LYMPHOCYTES # (AUTO) 0.9 X10^3/uL (1.3-2.9); LYMPHOCYTES % (AUTO) 11.9 % (21.0-51.0); MEAN CORPUSCULAR HEMOGLOBIN 29.3 pg (27.0-34.0); MEAN CORPUSCULAR HGB CONC 34.3 g/dL (33.0-35.0); MEAN CORPUSCULAR VOLUME 85.3 fL (80.0-100.0); MEAN PLATELET VOLUME 9.2 fL (7.4-11.0); MONOCYTES # (AUTO) 0.8 x10^3/uL (0.3-0.8); MONOCYTES % (AUTO) 11.1 % (0.0-13.0); NEUTROPHILS # (AUTO) 5.6 x10^3/uL (2.2-4.8); NEUTROPHILS % (AUTO) 74.6 % (42.0-75.0); PLATELET COUNT 156 X10^3/uL (150.0-450.0); RED BLOOD COUNT 3.37 X10^6/uL (3.5-5.4); RED CELL DISTRIBUTION WIDTH 13.7 % (11.6-16.5); WHITE BLOOD COUNT 7.5 X10^3/uL (3.6-10.0)
[2022-11-21 09:09] LABS: ALANINE AMINOTRANSFERASE 65 Units/L (12-78); ALBUMIN 2.5 g/dL (3.4-5.0); ALKALINE PHOSPHATASE 64 Units/L (46-116); ASPARTATE AMINO TRANSFERASE 71 Units/L (15-37); BLOOD UREA NITROGEN 11 mg/dL (7-18); CALCIUM 7.8 mg/dL (8.5-10.1); CARBON DIOXIDE 25.1 mmol/L (21-32); CHLORIDE 109 mmol/L (98-107); COR NA(FOR HYPERGLY) 142 mmol/L (136-145); CREATININE 0.79 mg/dL (0.55-1.02); GLUCOSE 113 mg/dL (65-99); POTASSIUM 3.7 mmol/L (3.5-5.1); SODIUM 142 mmol/L (136-145); eGFR NON BLACK RACES > 60 (>60)
[2022-11-21] MEDS: ALENDRONATE 10 MG PO SCH ×2 (09:55→10:38)
[2022-11-21] MEDS: NEURONTIN CAP 300 MG PO SCH ×2 (09:55→21:24)
[2022-11-21] MEDS: VSL#3 PO SCH (09:56)
[2022-11-21] MEDS: ROCEPHIN VIAL 1 GRAM 1 G in NS 100 ML IV 100 ML IV SCH (09:56)
[2022-11-21] MEDS: REQUIP PO SCH ×2 (09:56→21:24)
[2022-11-21] MEDS: PEPCID TAB 20 MG PO SCH ×2 (09:56→21:26)
[2022-11-21] MEDS: PROTONIX TAB 40 MG PO SCH (09:56)
[2022-11-21] MEDS: OXYBUTYNIN CHLORIDE ER PO SCH (10:03)
--- NOTE | 2022-11-21 11:51 | PCM.PROG ---
Progress Note - Progress Note for Day of Date of Exam: 11/21/22 - Subjective Subjective: IS CURRENTLY OBSERVATION STATUS FOR TREATMENT OF ACUTE UTI, DEHYDRATION, AND HYPOTENSION. SHE HAS A PMH OF DYSLIPIDEMIA, MIGRAINES, GERD, AND HYSTERECTOMY. TODAY, SHE IS ALERT AND ORIENTED, SITTING UP IN BED ON MORNING ROUNDS. SHE CONTINUES TO REPORT GENERALIZED WEAKNESS AND OCCASIONAL NAUSEA THIS MORNING. SHE DOES ADMIT TO MILD SUPRAPUBIC TENDERNESS AT TIMES. SHE HAS HAD AN UNEVENTFUL NIGHT. PATIENT REPORTS INCONTINENCE OF URINE AT TIMES, BUT REPORTS HAVING TO SELF CATH AT OTHER TIMES DUE TO NOT URINATING FOR A WHILE. SHE DID HAVE AN EPISODE OF INCONTINENCE THIS MORNING. ON EXAMINATION, HEART IS REGULAR IN RATE AND RHYTHM. BILATERAL LUNGS ARE CLEAR TO AUSCULTATION. ABDOMEN IS ROUND, SOFT, AND NON-TENDER WITH NORMAL BOWEL SOUNDS NOTED IN ALL QUADRANTS. GOOD RANGE OF MOTION NOTED TO UPPER AND LOWER EXTREMITIES WITH NO EDEMA NOTED. HER VITALS THIS MORNING ARE: 98.0-85-20-98%-118/58. LABS WERE OBTAINED. WBC 7.5, RBC 3.37, HGB 9.9, HCT 28.7, PLT COUNT 156, SODIUM 142, POTASSIUM 3.7, CHLORIDE 109, BUN 11, CREATININE 0.79, GLUCOSE 113, CALCIUM 7.8, TOTAL BILI 0.40, AST 71, ALT 65, ALK PHOS 64, TOTAL PROTEIN 6.0, ALBUMIN 2.5. PRELIMINARY URINE CULTURES ARE POSITIVE FOR GROWTH OF GRAM NEGATIVE RODS. PRELIMINARY BLOOD CULTURES ARE POSITIVE FOR GROWTH OF GRAM POSITIVE COCCI. WE WILL GO AHEAD AND REPEAT THESE BLOOD CULTURES. SHE IS CURRENTLY RECEIVING D51/2 NS AT 125 ML/HR AND ROCEPHIN 1G IV DAILY. WE RESUMED HER HOME MEDICATIONS OF COLACE, PROBIOTICS, PANTOPRAZOLE, MAGNESIUM OXIDE, ALENDRONATE, ROPINIROLE, NORCO, GABAPENTIN, FAMOTIDINE, AND CLONAZEPAM. TODAY, WE WILL ADD OXYBUTYNIN 10MG DAILY. OTHERWISE, WE WILL CONTINUE WITH CURRENT PLAN OF CARE. WE PLAN TO FOLLOW UP WITH AM LABS AND CONTINUE TO MONITOR. TIME SPENT ON CLINICAL ASSESSMENT, REVIEWING LABS AND IMAG ING, DECISION MAKING, AND DOCUMENTATION GREATER THAN 75 MINUTES. - Past Medical Family Social History Past Med/Fam/Surg Hx: No changes since H&P Allergies: Allergies sulfamethoxazole [From Bactrim] Allergy (Verified 12/13/21 14:01) trimethoprim [From Bactrim] Allergy (Verified 12/13/21 14:01) - Review of Systems ROS: No change since H&P - Vital Signs and I&O's Vital Signs: Vital Signs Temperature 97.9 F Temperature 98.0 F Temperature 98.6 F Temperature 98.6 F Pulse Rate [Right Brachial] 80 Pulse Rate [Right Brachial] 85 Pulse Rate [Right Brachial] 98 Pulse Rate [Right Brachial] 98 Respiratory Rate 20 Respiratory Rate 20 Respiratory Rate 18 Respiratory Rate 18 Blood Pressure [Right Arm] 115/55 Blood Pressure [Right Arm] 118/58 Blood Pressure [Right Arm] 92/51 Blood Pressure [Right Arm] 92/51 O2 Sat by Pulse Oximetry 98 O2 Sat by Pulse Oximetry 98 O2 Sat by Pulse Oximetry 95 O2 Sat by Pulse Oximetry 95 Intake and Output: Intake & Output 11/18/22 11/19/22 11/20/22 11/21/22 11:59 11:59 11:59 11:59 Intake Total 3306 / 3306 Balance 3306 / 3306 - Physical Exam Oriented: Normal Eyes: Normal Ear: Normal Nose: Normal Throat: Normal Respiratory: Normal Cardiovascular: Normal : Normal Auscultation: Bowel Sounds: Normal Palpation: Normal Tenderness: Suprapubic Skin: Normal Musculoskeletal: Normal Psychiatric: Normal Mood Description: Calm Affect: Normal Speech Pattern: Clear - Laboratory and Diagnostics Result Diagrams: 11/21/22 08:45 11/21/22 08:45 Labs: 11/20/22 08:35 Blood Blood Culture - Preliminary 11/20/22 08:48 Urine,Catheterized Urine Culture - Preliminary Laboratory WBC 7.5 X10^3/uL (3.6-10.0) 11/21/22 08:45 RBC 3.37 X10^6/uL (3.5-5.4) L 11/21/22 08:45 Hgb 9.9 g/dL (12.0-16.0) L 11/21/22 08:45 Hct 28.7 % (36.0-47.0) L 11/21/22 08:45 MCV 85.3 fL (80.0-100.0) 11/21/22 08:45 MCH 29.3 pg (27.0-34.0) 11/21/22 08:45 MCHC 34.3 g/dL (33.0-35.0) 11/21/22 08:45 RDW 13.7 % (11.6-16.5) 11/21/22 08:45 Plt Count 156 X10^3/uL (150.0-450.0) 11/21/22 08:45 MPV 9.2 fL (7.4-11.0) 11/21/22 08:45 Neut % (Auto) 74.6 % (42.0-75.0) 11/21/22 08:45 Lymph % (Auto) 11.9 % (21.0-51.0) L 11/21/22 08:45 [place] % (Auto) 11.1 % (0.0-13.0) 11/21/22 08:45 Eos % (Auto) 2.3 % (0.9-2.9) 11/21/22 08:45 Baso % (Auto) 0.1 % (0.2-1.0) L 11/21/22 08:45 Neut # (Auto) 5.6 x10^3/uL (2.2-4.8) H 11/21/22 08:45 Lymph # (Auto) 0.9 X10^3/uL (1.3-2.9) L 11/21/22 08:45 [place] # (Auto) 0.8 x10^3/uL (0.3-0.8) 11/21/22 08:45 Eos # (Auto) 0.2 x10^3/uL (0.0-0.2) 11/21/22 08:45 Baso # (Auto) 0.0 X10^3/uL (0.0-0.1) 11/21/22 08:45 Absolute Nucleated RBC 0.0 /100WBC 11/21/22 08:45 Sodium 142 mmol/L (136-145) 11/21/22 08:45 Corrected Sodium 142 mmol/L (136-145) 11/21/22 08:45 Potassium 3.7 mmol/L (3.5-5.1) 11/21/22 08:45 Chloride 109 mmol/L (98-107) H 11/21/22 08:45 Carbon Dioxide 25.1 mmol/L (21-32) 11/21/22 08:45 BUN 11 mg/dL (7-18) 11/21/22 08:45 Creatinine 0.79 mg/dL (0.55-1.02) 11/21/22 08:45 Est GFR (MDRD) Af Amer > 60 (>60) 11/21/22 08:45 Est GFR (MDRD) Non-Af > 60 (>60) 11/21/22 08:45 Glucose 113 mg/dL (65-99) H 11/21/22 08:45 Lactic Acid 0.9 mmol/L (0.4-2.0) 11/20/22 08:35 Calcium 7.8 mg/dL (8.5-10.1) L 11/21/22 08:45 Corrected Calcium 9.0 mg/dL (8.5-10.1) 11/21/22 08:45 Magnesium 2.2 mg/dL (2.0-2.9) 11/20/22 08:35 Total Bilirubin 0.40 mg/dL (0.2-1.0) 11/21/22 08:45 AST 71 Units/L (15-37) H 11/21/22 08:45 ALT 65 Units/L (12-78) 11/21/22 08:45 Alkaline Phosphatase 64 Units/L (46-116) 11/21/22 08:45 Total Protein 6.0 g/dL (6.4-8.2) L 11/21/22 08:45 Albumin 2.5 g/dL (3.4-5.0) L 11/21/22 08:45 Globulin 3.5 g/dL (2.5-4.5) 11/21/22 08:45 Albumin/Globulin Ratio 0.7 Ratio (1.1-2.1) L 11/21/22 08:45 Lipase 65 Units/L (73-393) L 11/20/22 08:35 Specimen Type Catherized urine 11/20/22 08:48 Urine Color Yellow (YELLOW) 11/20/22 08:48 Urine Appearance Hazy (CLEAR) 11/20/22 08:48 Urine pH 7.0 (5.0 - 8.0) 11/20/22 08:48 Ur Specific [place] 1.015 (1.000-1.030) 11/20/22 08:48 Urine Protein 2+ (NEGATIVE) 11/20/22 08:48 Urine Glucose (UA) Negative (NEGATIVE) 11/20/22 08:48 Urine Ketones Negative (NEGATIVE) 11/20/22 08:48 Urine Blood 4+ (NEGATIVE) 11/20/22 08:48 Urine Nitrite Positive (NEGATIVE) 11/20/22 08:48 Urine Bilirubin Negative (NEGATIVE) 11/20/22 08:48 Urine Urobilinogen Normal (NORMAL) 11/20/22 08:48 Ur Leukocyte Esterase 3+ (NEGATIVE) 11/20/22 08:48 Urine RBC 10-20 /HPF (0-3) A 11/20/22 08:48 Urine WBC Tntc /HPF (0-5) A 11/20/22 08:48 Ur Squamous Epith Cells Negative /HPF (NEGATIVE) 11/20/22 08:48 Urine Bacteria 2+ /HPF (NEGATIVE) 11/20/22 08:48 Ur Culture Indicated? Yes/culture set up 11/20/22 08:48 - Plan (1) Bacteremia Status: Acute Plan: D51/2 NS AT 125 ML/HR AND ROCEPHIN 1G IV DAILY, RESUME HOME MEDS (2) Acute UTI Status: Acute Plan: ROCEPHIN 1G IV DAILY (3) Dehydration Status: Acute Plan: IV HYDRATION (4) Hypotension Status: Acute Qualifiers: Hypotension type: unspecified hypotension type Qualified Code(s): I95.9 - Hypotension, unspecified (5) COPD (chronic obstructive pulmonary disease) Status: Acute Qualifiers: COPD type: unspecified COPD Qualified Code(s): J44.9 - Chronic obstructive pulmonary disease, unspecified (6) GERD (gastroesophageal reflux disease) Status: Chronic Qualifiers: Esophagitis presence: esophagitis presence not specified Qualified Code(s): K21.9 - Gastro-esophageal reflux disease without esophagitis Plan: RESUME PANTOPRAZOLE AND FAMOTIDINE (7) Restless leg syndrome Status: Chronic Plan: RESUME ROPINIROLE (8) Insomnia Status: Chronic Qualifiers: Insomnia type: primary Qualified Code(s): F51.01 - Primary insomnia Plan: RESUME CLONAZEPAM
[2022-11-21] MEDS ORDERED: CONSULT PHARMACY - POTASSIUM & MAGNESIUM XX SCH (21:00)
[2022-11-21] MEDS: COLACE CAP 100 MG PO SCH (21:25)
[2022-11-21] MEDS: MAG-OX TAB PO SCH (21:25)
[2022-11-21] MEDS: KLONOPIN TAB 1 MG PO SCH (21:26)
[2022-11-21] MEDS ORDERED: K-DUR TAB 20 MEQ PO SCH (22:00)
[2022-11-22] MEDS: D5 NS 1,000 ML IV 1,000 ML IV SCH ×2 (04:31→11:19)
[2022-11-22 05:11] LABS: BASOPHILS % (AUTO) 0.5 % (0.2-1.0); EOSINOPHILS # (AUTO) 0.1 x10^3/uL (0.0-0.2); EOSINOPHILS % (AUTO) 2.5 % (0.9-2.9); HEMATOCRIT 26.3 % (36.0-47.0); HEMOGLOBIN 9.1 g/dL (12.0-16.0); LYMPHOCYTES # (AUTO) 1.5 X10^3/uL (1.3-2.9); LYMPHOCYTES % (AUTO) 25.1 % (21.0-51.0); MEAN CORPUSCULAR HEMOGLOBIN 29.3 pg (27.0-34.0); MEAN CORPUSCULAR HGB CONC 34.6 g/dL (33.0-35.0); MEAN CORPUSCULAR VOLUME 84.9 fL (80.0-100.0); MEAN PLATELET VOLUME 9.8 fL (7.4-11.0); MONOCYTES # (AUTO) 0.9 x10^3/uL (0.3-0.8); MONOCYTES % (AUTO) 14.7 % (0.0-13.0); NEUTROPHILS # (AUTO) 3.3 x10^3/uL (2.2-4.8); NEUTROPHILS % (AUTO) 57.2 % (42.0-75.0); PLATELET COUNT 166 X10^3/uL (150.0-450.0); RED BLOOD COUNT 3.09 X10^6/uL (3.5-5.4); RED CELL DISTRIBUTION WIDTH 13.3 % (11.6-16.5); WHITE BLOOD COUNT 5.8 X10^3/uL (3.6-10.0)
[2022-11-22 05:24] LABS: ALANINE AMINOTRANSFERASE 54 Units/L (12-78); ALBUMIN 2.3 g/dL (3.4-5.0); ALKALINE PHOSPHATASE 60 Units/L (46-116); ASPARTATE AMINO TRANSFERASE 49 Units/L (15-37); BLOOD UREA NITROGEN 5 mg/dL (7-18); CALCIUM 7.9 mg/dL (8.5-10.1); CHLORIDE 112 mmol/L (98-107); COR CA(FOR HYPOALB) 9.3 mg/dL (8.5-10.1); CREATININE 0.66 mg/dL (0.55-1.02); GLUCOSE 97 mg/dL (65-99); POTASSIUM 3.7 mmol/L (3.5-5.1); SODIUM 144 mmol/L (136-145); TOTAL PROTEIN 5.7 g/dL (6.4-8.2); eGFR NON BLACK RACES > 60 (>60)
[2022-11-22] MEDS ORDERED: CONSULT PHARMACY - POTASSIUM & MAGNESIUM XX SCH (07:00)
[2022-11-22 08:14] VITALS: RESP 20
[2022-11-22] MEDS: NEURONTIN CAP 300 MG PO SCH (08:45)
[2022-11-22] MEDS: PROTONIX TAB 40 MG PO SCH (08:46)
[2022-11-22] MEDS: OXYBUTYNIN CHLORIDE ER PO SCH (08:46)
[2022-11-22] MEDS: PEPCID TAB 20 MG PO SCH (08:46)
[2022-11-22] MEDS: REQUIP PO SCH (08:46)
[2022-11-22] MEDS: VSL#3 PO SCH (08:46)
[2022-11-22] MEDS: ALENDRONATE 10 MG PO SCH (08:55)
[2022-11-22] MEDS ORDERED: K-DUR TAB 20 MEQ PO SCH (09:00)
[2022-11-22] MEDS ORDERED: MERREM VIAL 1 G in NS 100 ML IV 100 ML IV SCH (09:00)
[2022-11-22 12:03] VITALS: BP 104/70; PULSE 85; TEMP 98.6; O2SAT 97
[2022-12-20] MEDS ORDERED: GALCANEZUMAB GNLM 120 MG/ML SUBCUT SCH (09:00)
== END 2022-11-22 12:40 | disposition home or self-care (01) ==
LOC: ER 08:29 → MED/SURG 08:29
PROVIDERS: ADMIT Internal Medicine; ATTEND Internal Medicine
DX: F51.01 Primary insomnia; J44.9 Chronic obstructive pulmonary disease, unspecified; K21.9 Gastro-esophageal reflux disease without esophagitis; N39.0 Urinary tract infection, site not specified; G25.81 Restless legs syndrome; I95.89 Other hypotension; B96.5 Pseudomonas (aeruginosa) (mallei) (pseudomallei) as the cause of diseases classified elsewhere; E86.0 Dehydration; R78.81 Bacteremia

== ENCOUNTER 2024-11-03 14:35 | Inpatient (IN) ==
[2024-11-03] MEDS: ZOFRAN INJ 4 MG VIAL IVP ONE (14:46)
[2024-11-03 14:58] VITALS: BMI 24.2
[2024-11-03] MEDS: TYLENOL 325 MG TAB PO ONE (15:04)
[2024-11-03 15:05] LABS: MEAN PLATELET VOLUME 9.0 fL (7.4-11.0); RED CELL DISTRIBUTION WIDTH 13.6 % (11.6-16.5)
--- NOTE | 2024-11-03 15:15 | DR.FEVERAD ---
HPI Time seen Time Seen by Provider: 11/03/24 15:08 PCP Primary Care Physician: Pilo Complaints/Symptoms Chief Complaint Doctor Comments: 69 yo F, hx of atonic bladder, has a bladder interstim implant, performs straight catheterization on her when she needs to urinate. Today, pt had confusion and weakness the past 24h. took her temp at home, found it to be 102. Denies other complaints. states she has acted similarly in the past when she has had a UTI. Chief Complaint:: Patient states that she started feeling weak and was very tired last night. She went to bed early, and her woke her up at 3AM (normal time for them) to try to go to the bathroom. He states that she was hard to arouse, and seemed a little confused. This morning she was still lethargic at times, and states that she is very weak and tired. The states that she has had these symptoms in the past due to a UTI and states that they have to straight cath her daily to empty her bladder. COVID-19 Coronavirus risk:travel/contact w/high risk person: No Has patient experienced Coronavirus symptoms: No Coronavirus symptoms experienced: Fever Source History Provided: Patient and Significant Other Mode of Arrival Mode of Arrival: Stretcher Timing Onset of Chief Complaint: 11/02/24 PMH PMH Past Medical History: Yes Past Medical History: Dyslipidemia, Migraines and GERD Past Surgical History: Yes Surgical History: Hysterectomy Family History History of Family Medical Conditions: Yes Family Medical History: Diabetes Mellitus Social History Does patient currently use any type of tobacco product: No Have you used tobacco products in the last 12 months: No Type of Tobacco Use: None Does any household member use tobacco: No Alcohol Use: None Do you use any recreational Drugs:: No Lives With: Family Lives Where: Home Travel Risk Coronavirus risk:travel/contact w/high risk person: No Has patient experienced Coronavirus symptoms: No Coronavirus symptoms experienced: Fever Infectious screening In the last 2 months have you had wt loss of >10#?: NO Have you had fever, night sweats or hemotysis?: No Have you traveled outside the country in the last 6 months?: No Isolation: Standard ROS Review of Systems Constitutional: Malaise, Weakness and Other (confusion) All Other Systems: Reviewed and Negative PE Vital Signs Vitals: Vital Signs Temperature 102.0 F Pulse Rate 90 Pulse Rate 88 Pulse Rate 93 Pulse Rate 97 Pulse Rate 96 Pulse Rate 98 Respiratory Rate 18 Respiratory Rate 18 Blood Pressure 118/56 Blood Pressure 140/42 O2 Sat by Pulse Oximetry 98 O2 Sat by Pulse Oximetry 97 O2 Sat by Pulse Oximetry 99 O2 Sat by Pulse Oximetry 97 O2 Sat by Pulse Oximetry 96 O2 Sat by Pulse Oximetry 97 General Limitations: No Limitations General Appearance: Alert and In No Apparent Distress Head Head Exam: Normal Inspection Eyes Eye exam: Normal Appearance ENT ENT Exam: Normal Exam Neck Neck Exam: Normal Inspection Respiratory Respiratory Exam: Normal Lung Sounds Bilat Cardiovascular Cardiovascular Exam: Regular Rate and Normal Rhythm Abdominal Exam Abdominal Exam: Normal Inspection, Normal Bowel Sounds and Soft Extremities Extremities Exam: Normal Inspection Back Back Exam: Normal Inspection Neurologic Neurological Exam: Alert and Oriented X3 Psychiatric Psychiatric Exam: Normal Affect and Normal Mood Skin Skin Exam: Warm, Dry, Intact and Normal Color ROR Labs Reviewed 11/03/24 14:51 11/03/24 14:51 Laboratory: WBC 8.5 X10^3/uL (3.6-10.0) 11/03/24 14:51 RBC 3.83 X10^6/uL (3.5-5.4) 11/03/24 14:51 Hgb 11.2 g/dL (12.0-16.0) L 11/03/24 14:51 Hct 32.6 % (36.0-47.0) L 11/03/24 14:51 MCV 85.2 fL (80.0-100.0) 11/03/24 14:51 MCH 29.4 pg (27.0-34.0) 11/03/24 14:51 MCHC 34.5 g/dL (33.0-35.0) 11/03/24 14:51 RDW 13.6 % (11.6-16.5) 11/03/24 14:51 Plt Count 149 X10^3/uL (150.0-450.0) L 11/03/24 14:51 MPV 9.0 fL (7.4-11.0) 11/03/24 14:51 Neut % (Auto) 78.4 % (42.0-75.0) H 11/03/24 14:51 Lymph % (Auto) 8.0 % (21.0-51.0) L 11/03/24 14:51 [place] % (Auto) 12.5 % (0.0-13.0) 11/03/24 14:51 Eos % (Auto) 0.6 % (0.9-2.9) L 11/03/24 14:51 Baso % (Auto) 0.5 % (0.2-1.0) 11/03/24 14:51 Neut # (Auto) 6.7 x10^3/uL (2.2-4.8) H 11/03/24 14:51 Lymph # (Auto) 0.7 X10^3/uL (1.3-2.9) L 11/03/24 14:51 [place] # (Auto) 1.1 x10^3/uL (0.3-0.8) H 11/03/24 14:51 Eos # (Auto) 0.0 x10^3/uL (0.0-0.2) 11/03/24 14:51 Baso # (Auto) 0.0 X10^3/uL (0.0-0.1) 11/03/24 14:51 Absolute Nucleated RBC 0.0 /100WBC 11/03/24 14:51 Sodium 132 mmol/L (136-145) L 11/03/24 14:51 Corrected Sodium 133 mmol/L (136-145) L 11/03/24 14:51 Potassium 3.2 mmol/L (3.5-5.1) L 11/03/24 14:51 Chloride 98 mmol/L (98-107) 11/03/24 14:51 Carbon Dioxide 26.8 mmol/L (21-32) 11/03/24 14:51 BUN 24 mg/dL (7-18) H 11/03/24 14:51 Creatinine 1.24 mg/dL (0.55-1.02) H 11/03/24 14:51 Est GFR (MDRD) Af Amer 55 (>60) L 11/03/24 14:51 Est GFR (MDRD) Non-Af 46 (>60) L 11/03/24 14:51 Glucose 125 mg/dL (65-99) H 11/03/24 14:51 Lactic Acid 1.0 mmol/L (0.4-2.0) 11/03/24 14:51 Calcium 8.9 mg/dL (8.5-10.1) 11/03/24 14:51 Corrected Calcium 9.8 mg/dL (8.5-10.1) 11/03/24 14:51 Total Bilirubin 0.50 mg/dL (0.2-1.0) 11/03/24 14:51 AST 207 Units/L (15-37) H 11/03/24 14:51 ALT 162 Units/L (12-78) H 11/03/24 14:51 Alkaline Phosphatase 132 Units/L (46-116) H 11/03/24 14:51 Total Protein 7.2 g/dL (6.4-8.2) 11/03/24 14:51 Albumin 2.9 g/dL (3.4-5.0) L 11/03/24 14:51 Globulin 4.3 g/dL (2.5-4.5) 11/03/24 14:51 Albumin/Globulin Ratio 0.7 Ratio (1.1-2.1) L 11/03/24 14:51 Specimen Type Catherized urine 11/03/24 15:30 Urine Color Yellow (YELLOW) 11/03/24 15:30 Urine Appearance Hazy (CLEAR) 11/03/24 15:30 Urine pH 7.0 (5.0 - 8.0) 11/03/24 15:30 Ur Specific [place] 1.015 (1.000-1.030) 11/03/24 15:30 Urine Protein 3+ (NEGATIVE) 11/03/24 15:30 Urine Glucose (UA) 1+ (NEGATIVE) 11/03/24 15:30 Urine Ketones Negative (NEGATIVE) 11/03/24 15:30 Urine Blood 5+ (NEGATIVE) 11/03/24 15:30 Urine Nitrite Positive (NEGATIVE) 11/03/24 15:30 Urine Bilirubin Negative (NEGATIVE) 11/03/24 15:30 Urine Urobilinogen Normal (NORMAL) 11/03/24 15:30 Ur Leukocyte Esterase 3+ (NEGATIVE) 11/03/24 15:30 Urine RBC 10-20 /HPF (0-3) A 11/03/24 15:30 Urine WBC Tntc /HPF (0-5) A 11/03/24 15:30 Ur Squamous Epith Cells Negative /HPF (NEGATIVE) 11/03/24 15:30 Urine Bacteria Trace /HPF (NEGATIVE) 11/03/24 15:30 Ur Culture Indicated? Yes/culture set up 11/03/24 15:30 Opioid Opioid Risk Tool Age (Willy box if 16-45): No History of Preadolescent Sexual Abuse: No Total: 0 Total Score Risk Category: Low Risk Copyright: Ishmael VELASQUEZ predicting aberrant behaviors Discharge Plan Diagnosis Discharge Problem: Acute UTI, Acute confusion, Weakness, Acute hypokalemia Discharge Plan Patient Disposition: ADMITTED INPATIENT Condition: Stable Prescriptions: No Action ropinirole 1 mg tablet 0.5 mg PO BID clonazepam 1 mg tablet 1 mg PO QPM hydrocodone-acetaminophen 10-325 mg tablet 1 tab PO TID PRN (Reason: pain) famotidine 20 mg tablet 20 mg PO BID gabapentin 300 mg capsule 300 mg PO QPM Emgality Pen 120 mg/mL pen injector 120 mg SUBCUT QMONTH Rx Instructions: every other month alendronate 10 mg Tablet 10 mg PO DAILY rizatriptan 10 mg Tablet 20 mg PO BID pantoprazole 40 mg Tablet,Delayed Release (Dr/Ec) 40 mg PO DAILY magnesium oxide [Al] 500 mg Tablet 1,000 mg PO HS docusate sodium [Colace] 100 mg Capsule 200 mg PO HS ondansetron HCl 4 mg tablet PO cyclobenzaprine 10 mg Tablet 10 mg PO TID ondansetron HCl [Zofran] 4 mg Tablet 4 mg PO Q8H desloratadine 5 mg Tablet 5 mg PO QDAY promethazine [Phenergan] 25 mg Tablet 25 mg PO TID PRN Linzess 145 mcg Capsule 145 mcg PO QAM cefdinir 300 mg capsule 300 mg PO BID Qty: 20 0RF Health Concerns: Post Hospitalization: new medications and changes needed to prevent readmission or further decline. Pt educated and given instructions on all concerns. Plan of Treatment: Continue with present treatment and follow up plan. Pt is to keep follow up appointment as instructed and take medications as ordered. Orders to Discharge Patient Discharge Orders: Transfer (Routine); Ordered 11/03/24 Ordered By: Damon Angel Follow ups/Referrals Follow ups/Referrals: [facility],None [Primary Care Provider] - 3 days Instructions Stand Alone Forms: Find Help Web Site, Post Hospital Follow Up Care Print Language: SPANISH
[2024-11-03 15:17] LABS: COR CA(FOR HYPOALB) 9.8 mg/dL (8.5-10.1); COR NA(FOR HYPERGLY) 133.0 mmol/L (136-145); CREATININE 1.24 mg/dL (0.55-1.02); eGFR NON BLACK RACES 46.0 (>60)
[2024-11-03 15:38] LABS: BLOOD/HEMOGLOBIN,URINE 5+ (NEGATIVE); LEUKOCYTE ESTERASE ,URINE 3+ (NEGATIVE); NITRITES,URINE POSITIVE (NEGATIVE)
[2024-11-03 15:50] LABS: APPEARANCE,URINE HAZY (CLEAR)
[2024-11-03 15:51] LABS: SQUAMOUS EPITHELIAL CELL,UR NEGATIVE /HPF (NEGATIVE)
[2024-11-03] MEDS: ROCEPHIN VIAL 1 GRAM IVP ONE (17:58)
[2024-11-03] MEDS: ROCEPHIN VIAL 1 GRAM 1 G in NS 100 ML IV 100 ML IV SCH (17:58)
[2024-11-03] MEDS ORDERED: ULTRAM PO PRN (19:20)
[2024-11-03] MEDS ORDERED: ZOFRAN INJ 4 MG VIAL IVP PRN (19:20)
[2024-11-03] MEDS ORDERED: NORCO 5/325 MG TAB PO PRN (19:20)
[2024-11-03] MEDS: NS 1,000 ML IV 1,000 ML IV SCH (20:00)
[2024-11-03] MEDS: MORPHINE SULFATE INJ 2 MG INJ IVP PRN (20:01)
[2024-11-03] MEDS: K-DUR TAB 20 MEQ PO SCH (20:03)
[2024-11-03] MEDS: ROCEPHIN VIAL 1 GRAM ONE (20:50)
[2024-11-03] MEDS: KLONOPIN TAB 1 MG PO SCH (21:18)
[2024-11-03] MEDS: REQUIP PO SCH (21:18)
[2024-11-04] MEDS: TYLENOL 325 MG TAB PO PRN (00:21)
[2024-11-04] MEDS: TYLENOL SUPP 650 MG PR PRN (00:38)
[2024-11-04 05:43] LABS: MEAN PLATELET VOLUME 9.5 fL (7.4-11.0); RED CELL DISTRIBUTION WIDTH 13.5 % (11.6-16.5)
[2024-11-04 05:56] LABS: COR CA(FOR HYPOALB) 9.7 mg/dL (8.5-10.1); CREATININE 1.69 mg/dL (0.55-1.02); eGFR NON BLACK RACES 32 (>60)
[2024-11-04] MEDS ORDERED: CONSULT PHARMACY - POTASSIUM & MAGNESIUM XX SCH (07:00)
[2024-11-04] MEDS: MAG-OX TAB PO SCH (09:32)
[2024-11-04] MEDS: ALENDRONATE 10 MG PO SCH (09:34)
[2024-11-04] MEDS: NS 1,000 ML IV 1,000 ML with MAGNESIUM SULFATE 50% INJ VIAL 1 G IV SCH (10:06)
[2024-11-04] MEDS: FORTAZ or TAZICEF VIAL INJ 1 G in NS 100 ML IV 100 ML IV SCH (10:06)
[2024-11-04] MEDS: LEXAPRO PO SCH (10:16)
[2024-11-04] MEDS: CONSULT PHARMACY - POTASSIUM & MAGNESIUM XX SCH (10:24)
[2024-11-04] MEDS: LEXAPRO ONE (10:24)
--- NOTE | 2024-11-04 10:45 | CT ---
EXAM: CT ABDOMEN AND PELVIS WITHOUT CONTRAST HISTORY: UTI, elevated temp, confusion; COMPARISON: June 21, 2024. TECHNIQUE: Axial CT images were obtained through the abdomen and pelvis without contrast. Coronal reformatted images were included. All CT scans at this facility use dose modulation, iterative reconstruction, and/or weight based dosing when appropriate to reduce radiation dose to as low as reasonably achievable. FINDINGS: Please note that without the use of intravenous contrast, evaluation of organ parenchyma is limited. LOWER THORAX: Hypoventilatory changes noted at the lung bases. ABDOMEN: LIVER: Normal GALLBLADDER: Normal SPLEEN: Normal PANCREAS: Normal KIDNEYS: Moderate bilateral hydroureteronephrosis is again noted. Diffuse dilation of the ureters is noted to the level of the urinary bladder without obstructing ureteral stone. Nonobstructing punctate intrarenal stones are identified. Urinary bladder demonstrates mild wall thickening but appears otherwise normal. ADRENAL GLANDS: Normal GI TRACT: Normal course and caliber LYMPH NODES: No enlarged nodes VESSELS: Normal PERITONEUM / RETROPERITONEUM: No free gas PELVIS: BLADDER: Urinary bladder wall thickening appears mild. GENITALS: Hysterectomy BONES: Small volume free fluid noted within the pelvic cul-de-sac. Degenerative changes noted within the lumbar spine and pelvis. Sacral stimulator device is noted bilaterally. IMPRESSION: Unchanged moderate bilateral hydroureteronephrosis without obstructing ureteral stone. Nonobstructing punctate intrarenal stones are noted. Correlation for any evidence of urinary tract infection recommended. THIS IS AN ELECTRONICALLY VERIFIED FINAL REPORT 11/04/2024 10:42 AM - Electronically signed by Aashish Canas MD
[2024-11-04] MEDS: MAGNESIUM SULFATE 50% INJ VIAL ONE (10:51)
[2024-11-04 12:38] LABS: BLOOD/HEMOGLOBIN,URINE 5+ (NEGATIVE); LEUKOCYTE ESTERASE ,URINE 3+ (NEGATIVE); NITRITES,URINE NEGATIVE (NEGATIVE)
[2024-11-04] MEDS: EMGALITY 120 MG SUBCUT ONE (12:42)
--- NOTE | 2024-11-04 12:56 | DR.H&P ---
H&P History & Physical for Day of: H&P Date: 11/04/24 Chief Complaint Chief Complaint: altered mental status dysuria History of Present Illness History of Present Illness: Patient is a 69-year-old female with a medical history of atonic bladder (does straight catheterizations), presenting with confusion and generalized weakness. She also has been having fevers. Labs/imaging: WBC 9.8, hemoglobin 10.7, platelets 133, sodium 134, potassium 4.1, creatinine 1.69, glucose 110, UA consistent with infection, urine/blood culture pending. Patient was given a dose of Rocephin in the ER. She was admitted for acute cystitis and altered mental status. She was started on IV fluids normal saline at 125 mL/h. This morning on exam she is alert and oriented. She did have fevers overnight that was significantly elevated. Will order rapid respiratory screen and chest x-ray. Will also order CT abdomen pelvis for further evaluation. Order Mcfadden placement. Will start her on IV antibiotics Fortaz. Restart home medications. Otherwise continue with current treatment plan. Continue closely monitor and follow-up labs/imaging. Time spent for clinical assessment, reviewing labs/imaging, physical exam, decision making and documentation greater than 45 mins. Past Medical History Past Medical History: Dyslipidemia, Migraines and GERD Additional Medical History: RESTLESS LEGS Past Surgical History Surgical History: Hysterectomy Family History Family Medical History: Diabetes Mellitus Social History Does patient currently use any type of tobacco product: No Have you used tobacco products in the last 12 months: No Type of Tobacco Use: None Does any household member use tobacco: No Alcohol Use: None Drug Use: None Medications Home Medications: Home Medications Medication Instructions Recorded Confirmed Type alendronate 10 mg tablet 10 mg PO DAILY 11/20/2210/18 History clonazepam 1 mg tablet 1 mg PO QHS 11/20/22 5 History docusate sodium 100 mg capsule 200 mg PO HS 11/20/22 0 11/04/24 History (Colace) galcanezumab-gnlm 120 mg/mL 120 mg subcut QMONTH 11/2011/04/24 History subcutaneous pen injector (Emgality Pen) pantoprazole 40 mg tablet,delayed 40 mg PO DAILY 11/2011/04/24 History release linaclotide 145 mcg capsule 145 mcg PO QAM PRN 4 11/04/24 History (Linzess) ondansetron HCl 4 mg tablet 4 mg PO Q8H PRN 09/19/23 0 11/04/24 History baclofen 10 mg tablet 10 mg PO TID 11/04/24 History escitalopram oxalate 5 mg tablet 5 mg PO DAILY 5 11/04/24 History estradiol 0.01% (0.1 mg/gram) 1 g vaginal USEASDIRECTD PRN 11/04/24 11/04/24 History vaginal cream famotidine 40 mg tablet 40 mg PO QPM 11/04/24 History gabapentin 100 mg capsule 100 mg PO DIRECTED 11/04/24 History lidocaine HCl 2 % mucosal solution 1 applic topical DIRECTED PRN 11/04/24 11/04/24 History (Lidocaine Viscous) midodrine 10 mg tablet 10 mg PO TID 11/04/24 History ropinirole 3 mg tablet 3 mg PO DAILY 11/04/2411/04 History Allergies Allergies Allergy/AdvReac Type Severity Reaction Status Date / Time sulfamethoxazole (From Allergy Verified 06/21/24 06:33 Bactrim) trimethoprim (From Bactrim) Allergy Verified 06/21/24 06:33 Labs 11/04/24 05:03 11/04/24 05:03 Labs: 11/03/24 15:30 Urine,Catheterized Urine Culture - Preliminary Laboratory WBC 9.8 X10^3/uL (3.6-10.0) 11/04/24 05:03 RBC 3.58 X10^6/uL (3.5-5.4) 11/04/24 05:03 Hgb 10.7 g/dL (12.0-16.0) L 11/04/24 05:03 Hct 30.4 % (36.0-47.0) L 11/04/24 05:03 MCV 85.1 fL (80.0-100.0) 11/04/24 05:03 MCH 29.8 pg (27.0-34.0) 11/04/24 05:03 MCHC 35.0 g/dL (33.0-35.0) 11/04/24 05:03 RDW 13.5 % (11.6-16.5) 11/04/24 05:03 Plt Count 133 X10^3/uL (150.0-450.0) L 11/04/24 05:03 MPV 9.5 fL (7.4-11.0) 11/04/24 05:03 Neut % (Auto) 77.4 % (42.0-75.0) H 11/04/24 05:03 Lymph % (Auto) 8.2 % (21.0-51.0) L 11/04/24 05:03 [place] % (Auto) 14.1 % (0.0-13.0) H 11/04/24 05:03 Eos % (Auto) 0.0 % (0.9-2.9) L 11/04/24 05:03 Baso % (Auto) 0.3 % (0.2-1.0) 11/04/24 05:03 Neut # (Auto) 7.6 x10^3/uL (2.2-4.8) H 11/04/24 05:03 Lymph # (Auto) 0.8 X10^3/uL (1.3-2.9) L 11/04/24 05:03 [place] # (Auto) 1.4 x10^3/uL (0.3-0.8) H 11/04/24 05:03 Eos # (Auto) 0.0 x10^3/uL (0.0-0.2) 11/04/24 05:03 Baso # (Auto) 0.0 X10^3/uL (0.0-0.1) 11/04/24 05:03 Absolute Nucleated RBC 0.0 /100WBC 11/04/24 05:03 Sodium 134 mmol/L (136-145) L 11/04/24 05:03 Corrected Sodium TNP 11/04/24 05:03 Potassium 4.1 mmol/L (3.5-5.1) 11/04/24 05:03 Chloride 102 mmol/L (98-107) 11/04/24 05:03 Carbon Dioxide 24.8 mmol/L (21-32) 11/04/24 05:03 BUN 24 mg/dL (7-18) H 11/04/24 05:03 Creatinine 1.69 mg/dL (0.55-1.02) H 11/04/24 05:03 Est GFR (MDRD) Af Amer 39 (>60) L 11/04/24 05:03 Est GFR (MDRD) Non-Af 32 (>60) L 11/04/24 05:03 Glucose 110 mg/dL (65-99) H 11/04/24 05:03 Lactic Acid 1.0 mmol/L (0.4-2.0) 11/03/24 14:51 Calcium 8.5 mg/dL (8.5-10.1) 11/04/24 05:03 Corrected Calcium 9.7 mg/dL (8.5-10.1) 11/04/24 05:03 Magnesium 1.6 mg/dL (2.0-2.9) L 11/04/24 05:03 Total Bilirubin 0.50 mg/dL (0.2-1.0) 11/04/24 05:03 AST 86 Units/L (15-37) H 11/04/24 05:03 ALT 108 Units/L (12-78) H 11/04/24 05:03 Alkaline Phosphatase 112 Units/L (46-116) 11/04/24 05:03 Total Protein 6.5 g/dL (6.4-8.2) 11/04/24 05:03 Albumin 2.5 g/dL (3.4-5.0) L 11/04/24 05:03 Globulin 4.0 g/dL (2.5-4.5) 11/04/24 05:03 Albumin/Globulin Ratio 0.6 Ratio (1.1-2.1) L 11/04/24 05:03 Specimen Type Catherized urine 11/03/24 15:30 Urine Color Yellow (YELLOW) 11/03/24 15:30 Urine Appearance Hazy (CLEAR) 11/03/24 15:30 Urine pH 7.0 (5.0 - 8.0) 11/03/24 15:30 Ur Specific [place] 1.015 (1.000-1.030) 11/03/24 15:30 Urine Protein 3+ (NEGATIVE) 11/03/24 15:30 Urine Glucose (UA) 1+ (NEGATIVE) 11/03/24 15:30 Urine Ketones Negative (NEGATIVE) 11/03/24 15:30 Urine Blood 5+ (NEGATIVE) 11/03/24 15:30 Urine Nitrite Positive (NEGATIVE) 11/03/24 15:30 Urine Bilirubin Negative (NEGATIVE) 11/03/24 15:30 Urine Urobilinogen Normal (NORMAL) 11/03/24 15:30 Ur Leukocyte Esterase 3+ (NEGATIVE) 11/03/24 15:30 Urine RBC 10-20 /HPF (0-3) A 11/03/24 15:30 Urine WBC Tntc /HPF (0-5) A 11/03/24 15:30 Ur Squamous Epith Cells Negative /HPF (NEGATIVE) 11/03/24 15:30 Urine Bacteria Trace /HPF (NEGATIVE) 11/03/24 15:30 Ur Culture Indicated? Yes/culture set up 11/03/24 15:30 Review of Systems Constitutional: Fever, Chills and Weakness Eyes: No Symptoms Reported ENT: No Symptoms Reported Respiratory: No Symptoms Reported Cardiovascular: No Symptoms Reported Gastrointestinal: No Symptoms Reported Genitourinary: Dysuria Musculoskeletal: No Symptoms Reported Skin: No Symptoms Reported Neurological: No Symptoms Reported Physical Exam Vital Signs: Vital Signs Temperature 97.5 F Temperature 99.5 F Pulse Rate [Brachial] 91 Respiratory Rate 20 Respiratory Rate 18 Respiratory Rate 18 Respiratory Rate 22 Blood Pressure [Right Arm] 107/51 O2 Sat by Pulse Oximetry 95 Oriented: Normal Eyes: Normal Ear: Normal Nose: Normal Throat: Normal Respiratory: Clear Throughout Cardiovascular: Normal : Normal Auscultation: Bowel Sounds: Normal Palpation: Normal Tenderness: Normal Skin: Normal Musculoskeletal: Normal Psychiatric: Normal Mood Description: Calm and Appropriate Affect: Normal Speech Pattern: Clear and Appropriate Assessment/Plan (1) Acute UTI: Status: Acute Plan: Continue IV fortaz Follow up cultures, continue IVF (2) Altered mental status: Qualifiers: Altered mental status type: unspecified Qualified Code(s): R41.82 - Altered mental status, unspecified Status: Acute Plan: Resolved (3) Weakness: Status: Acute (4) Atonic bladder: Status: Acute Plan: Mcfadden Review H&P Reviewed: Yes Patient was examined?: Yes
[2024-11-04 13:03] LABS: APPEARANCE,URINE CLOUDY (CLEAR)
[2024-11-04 13:04] LABS: SQUAMOUS EPITHELIAL CELL,UR RARE /HPF (NEGATIVE)
[2024-11-04] MEDS: PROAMATINE PO SCH (14:04)
[2024-11-04] MEDS ORDERED: NS 100 ML IV 100 ML with VENOFER 400 MG IV ONE (15:00)
[2024-11-04] MEDS: NEURONTIN CAP 100 MG PO SCH (21:46)
[2024-11-05 06:06] LABS: MEAN PLATELET VOLUME 9.6 fL (7.4-11.0); RED CELL DISTRIBUTION WIDTH 13.6 % (11.6-16.5)
[2024-11-05 06:18] LABS: COR CA(FOR HYPOALB) 9.6 mg/dL (8.5-10.1); CREATININE 1.12 mg/dL (0.55-1.02); eGFR NON BLACK RACES 52 (>60)
--- NOTE | 2024-11-05 06:27 | RAD ---
EXAM: CHEST, 1 VIEW HISTORY: Increased temp, cough; COMPARISON: 11/20/2022 FINDINGS: The cardiomediastinal silhouette is stable. No acute airspace disease. No pneumothorax or effusion. No acute osseous abnormality. IMPRESSION: No acute cardiopulmonary disease. THIS IS AN ELECTRONICALLY VERIFIED FINAL REPORT 11/05/2024 6:24 AM - Electronically signed by Henry Atkins MD
[2024-11-05] MEDS ORDERED: LEXAPRO ONE (09:15)
[2024-11-05] MEDS: NEURONTIN CAP 100 MG PO SCH (09:24)
[2024-11-05] MEDS: PEPCID TAB 40 MG PO SCH (09:25)
[2024-11-05] MEDS: NS 1,000 ML IV 1,000 ML IV SCH (12:01)
[2024-11-05] MEDS: ZOFRAN TAB 4 MG PO PRN (21:31)
[2024-11-05] MEDS ORDERED: COLACE CAP 100 MG PO PRN (21:53)
[2024-11-05] MEDS: MILK OF MAGNESIA PO PRN (22:16)
[2024-11-06 05:00] LABS: MEAN PLATELET VOLUME 9.4 fL (7.4-11.0); RED CELL DISTRIBUTION WIDTH 13.6 % (11.6-16.5)
[2024-11-06 05:15] LABS: COR CA(FOR HYPOALB) 9.9 mg/dL (8.5-10.1); CREATININE 0.97 mg/dL (0.55-1.02); eGFR NON BLACK RACES > 60 (>60)
[2024-11-06] MEDS ORDERED: LEXAPRO ONE (08:15)
--- NOTE | 2024-11-06 08:54 | PCM.PROG ---
Progress Note Progress Note for Day of Date of Exam: 11/05/24 Subjective Subjective: Patient is a 69-year-old female with a medical history of atonic bladder (does straight catheterizations), admitted for acute cystitis and altered mental status. This morning she is resting comfortably in bed. No acute events overnight. She reports improvement in her symptoms. Her confusion has been completely resolved. Labs/imaging: WBC 8.0, hemoglobin 9.1, platelets 118, sodium 138, potassium 3.5, creatinine 1.12, glucose 100, COVID/Flu negative, CTAP no acute intrabdominal findings, urine culture prelim gram negative rods, Blood culture contamination. She is currently receiving IV fluids normal saline at 125 mL/h. Mcfadden placement. Receiving IV antibiotics Fortaz. Home medications have been resumed. Awaiting culture results before discharge. Otherwise continue with current treatment plan. Continue closely monitor and follow-up labs/imaging. Past Medical Family Social History Allergies: Allergies sulfamethoxazole (From Bactrim) Allergy (Verified 06/21/24 06:33) trimethoprim (From Bactrim) Allergy (Verified 06/21/24 06:33) Review of Systems ROS changes noted: see HPI Vital Signs and I&O's Vital Signs: Vital Signs Temperature 98.9 F Temperature 99.3 F Pulse Rate [Brachial] 71 Pulse Rate [Brachial] 81 Respiratory Rate 18 Respiratory Rate 18 Blood Pressure [Right Arm] 119/59 Blood Pressure [Right Arm] 113/59 O2 Sat by Pulse Oximetry 95 O2 Sat by Pulse Oximetry 92 Intake and Output: Intake & Output 11/02/24 11/03/24 11/04/24 11/05/24 23:59 23:59 23:59 23:59 Intake Total 422 / 422 4045 / 4045 Output Total 2725 / 2725 1025 / 1025 Balance 422 / 422 1320 / 1320 -1000 / -1000 Physical Exam Oriented: Normal Eyes: Normal Ear: Normal Nose: Normal Throat: Normal Respiratory: Normal Cardiovascular: Normal : Normal Auscultation: Bowel Sounds: Normal Tenderness: Normal Skin: Normal Musculoskeletal: Normal Psychiatric: Normal Mood Description: Calm and Appropriate Affect: Normal Speech Pattern: Clear and Appropriate Laboratory and Diagnostics 11/06/24 04:37 11/06/24 04:37 Labs: 11/03/24 14:51 Blood Blood Culture - Preliminary 11/03/24 14:56 Blood Blood Culture Gram Stain - Final 11/03/24 14:56 Blood Blood Culture - Preliminary 11/03/24 15:30 Urine,Catheterized Urine Culture - Preliminary Laboratory WBC 8.0 X10^3/uL (3.6-10.0) 11/05/24 05:07 RBC 3.10 X10^6/uL (3.5-5.4) L 11/05/24 05:07 Hgb 9.1 g/dL (12.0-16.0) L 11/05/24 05:07 Hct 26.4 % (36.0-47.0) L 11/05/24 05:07 MCV 85.0 fL (80.0-100.0) 11/05/24 05:07 MCH 29.5 pg (27.0-34.0) 11/05/24 05:07 MCHC 34.7 g/dL (33.0-35.0) 11/05/24 05:07 RDW 13.6 % (11.6-16.5) 11/05/24 05:07 Plt Count 118 X10^3/uL (150.0-450.0) L 11/05/24 05:07 MPV 9.6 fL (7.4-11.0) 11/05/24 05:07 Neut % (Auto) 77.2 % (42.0-75.0) H 11/05/24 05:07 Lymph % (Auto) 11.6 % (21.0-51.0) L 11/05/24 05:07 [place] % (Auto) 9.0 % (0.0-13.0) 11/05/24 05:07 Eos % (Auto) 1.8 % (0.9-2.9) 11/05/24 05:07 Baso % (Auto) 0.4 % (0.2-1.0) 11/05/24 05:07 Neut # (Auto) 6.2 x10^3/uL (2.2-4.8) H 11/05/24 05:07 Lymph # (Auto) 0.9 X10^3/uL (1.3-2.9) L 11/05/24 05:07 [place] # (Auto) 0.7 x10^3/uL (0.3-0.8) 11/05/24 05:07 Eos # (Auto) 0.1 x10^3/uL (0.0-0.2) 11/05/24 05:07 Baso # (Auto) 0.0 X10^3/uL (0.0-0.1) 11/05/24 05:07 Absolute Nucleated RBC 0.0 /100WBC 11/05/24 05:07 Sodium 138 mmol/L (136-145) 11/05/24 05:07 Corrected Sodium TNP 11/05/24 05:07 Potassium 3.5 mmol/L (3.5-5.1) 11/05/24 05:07 Chloride 107 mmol/L (98-107) 11/05/24 05:07 Carbon Dioxide 25.0 mmol/L (21-32) 11/05/24 05:07 BUN 18 mg/dL (7-18) 11/05/24 05:07 Creatinine 1.12 mg/dL (0.55-1.02) H 11/05/24 05:07 Est GFR (MDRD) Af Amer > 60 (>60) 11/05/24 05:07 Est GFR (MDRD) Non-Af 52 (>60) L 11/05/24 05:07 Glucose 100 mg/dL (65-99) H 11/05/24 05:07 Lactic Acid 1.0 mmol/L (0.4-2.0) 11/03/24 14:51 Calcium 8.2 mg/dL (8.5-10.1) L 11/05/24 05:07 Corrected Calcium 9.6 mg/dL (8.5-10.1) 11/05/24 05:07 Magnesium 2.2 mg/dL (2.0-2.9) 11/05/24 05:07 Total Bilirubin 0.30 mg/dL (0.2-1.0) 11/05/24 05:07 AST 40 Units/L (15-37) H 11/05/24 05:07 ALT 68 Units/L (12-78) 11/05/24 05:07 Alkaline Phosphatase 100 Units/L (46-116) 11/05/24 05:07 Total Protein 6.1 g/dL (6.4-8.2) L 11/05/24 05:07 Albumin 2.2 g/dL (3.4-5.0) L 11/05/24 05:07 Globulin 3.9 g/dL (2.5-4.5) 11/05/24 05:07 Albumin/Globulin Ratio 0.6 Ratio (1.1-2.1) L 11/05/24 05:07 Specimen Type Catherized urine 11/04/24 11:50 Urine Color Straw (YELLOW) 11/04/24 11:50 Urine Appearance Cloudy (CLEAR) 11/04/24 11:50 Urine pH 6.0 (5.0 - 8.0) 11/04/24 11:50 Ur Specific [place] 1.010 (1.000-1.030) 11/04/24 11:50 Urine Protein 3+ (NEGATIVE) 11/04/24 11:50 Urine Glucose (UA) Negative (NEGATIVE) 11/04/24 11:50 Urine Ketones Negative (NEGATIVE) 11/04/24 11:50 Urine Blood 5+ (NEGATIVE) 11/04/24 11:50 Urine Nitrite Negative (NEGATIVE) 11/04/24 11:50 Urine Bilirubin Negative (NEGATIVE) 11/04/24 11:50 Urine Urobilinogen Normal (NORMAL) 11/04/24 11:50 Ur Leukocyte Esterase 3+ (NEGATIVE) 11/04/24 11:50 Urine RBC 10-20 /HPF (0-3) A 11/04/24 11:50 Urine WBC Tntc /HPF (0-5) A 11/04/24 11:50 Ur Squamous Epith Cells Rare /HPF (NEGATIVE) 11/04/24 11:50 Urine Bacteria 1+ /HPF (NEGATIVE) 11/04/24 11:50 Ur Culture Indicated? Yes/culture set up 11/04/24 11:50 SARS-CoV-2 (PCR) Negative (NEGATIVE) 11/04/24 11:58 Influenza Type A (PCR) Negative (NEGATIVE) 11/04/24 11:58 Influenza Type B (PCR) Negative (NEGATIVE) 11/04/24 11:58 RSV (PCR) Negative (NEGATIVE) 11/04/24 11:58 Plan (1) Acute UTI: Status: Acute Plan: Continue IV fortaz Follow up cultures, continue IVF (2) Altered mental status: Status: Acute Qualifiers: Altered mental status type: unspecified Qualified Code(s): R41.82 - Altered mental status, unspecified Plan: Resolved (3) Weakness: Status: Acute (4) Atonic bladder: Status: Acute Plan: [place]
[2024-11-06] MEDS: K-DUR TAB 20 MEQ PO SCH (09:01)
[2024-11-06] MEDS: MAG-OX TAB PO SCH (09:01)
[2024-11-06] MEDS: CONSULT PHARMACY - POTASSIUM & MAGNESIUM XX SCH (14:23)
--- NOTE | 2024-11-06 14:54 | RAD ---
EXAM: CHEST, 1 VIEW HISTORY: Wheezing, SOB; COMPARISON: 11/04/2024 FINDINGS: The cardiomediastinal silhouette is stable. Scattered bilateral airspace opacities. No pneumothorax or effusion. No acute osseous abnormality. IMPRESSION: Bilateral airspace opacities concerning for pneumonia. Recommend follow-up to resolution. THIS IS AN ELECTRONICALLY VERIFIED FINAL REPORT 11/06/2024 2:50 PM - Electronically signed by Henry Atkins MD
[2024-11-06] MEDS: LASIX IVP ONE (15:50)
[2024-11-07 04:24] VITALS: RESP 19
[2024-11-07 04:54] LABS: MEAN PLATELET VOLUME 9.1 fL (7.4-11.0); RED CELL DISTRIBUTION WIDTH 13.7 % (11.6-16.5)
[2024-11-07 05:05] LABS: COR CA(FOR HYPOALB) 10.2 mg/dL (8.5-10.1); CREATININE 0.81 mg/dL (0.55-1.02); eGFR NON BLACK RACES > 60 (>60)
[2024-11-07] MEDS ORDERED: CONSULT PHARMACY - POTASSIUM & MAGNESIUM XX SCH (06:00)
[2024-11-07] MEDS ORDERED: LEXAPRO ONE (08:00)
--- NOTE | 2024-11-07 08:46 | RAD ---
EXAM: AP chest HISTORY: CHF COMPARISON: 11/06/2024, 11/04/2024 FINDINGS: Heart size continues normal. Bilateral perihilar interstitial infiltrates or edema without evidence for lobar consolidation, extrapulmonary air complication or large pleural effusion. IMPRESSION: Similar bilateral perihilar infiltrates suggesting pulmonary edema/CHF. Inflammatory component not excluded. THIS IS AN ELECTRONICALLY VERIFIED FINAL REPORT 11/07/2024 8:43 AM - Electronically signed by Guillermo Cota MD
[2024-11-07] MEDS: K-DUR TAB 20 MEQ PO SCH ×2 (08:51→10:25)
[2024-11-07] MEDS: MAG-OX TAB PO SCH (08:51)
[2024-11-07] MEDS: LASIX IVP ONE (10:26)
[2024-11-07 12:04] VITALS: BP 150/71; PULSE 78; TEMP 98; O2SAT 100
== END 2024-11-07 15:15 | disposition home or self-care (01) | DRG 690 ==
LOC: MED/SURG 14:35 → ER 14:35 → OBSVTOIN 17:56 → MED/SURG 19:13
PROVIDERS: ADMIT Obstetrics & Gynecology Obstetrics; ATTEND Internal Medicine
DX: B96.5 Pseudomonas (aeruginosa) (mallei) (pseudomallei) as the cause of diseases classified elsewhere; E87.1 Hypo-osmolality and hyponatremia; B95.62 Methicillin resistant Staphylococcus aureus infection as the cause of diseases classified elsewhere; E78.5 Hyperlipidemia, unspecified; R06.02 Shortness of breath; E87.6 Hypokalemia; R74.01 Elevation of levels of liver transaminase levels; Z16.12 Extended spectrum beta lactamase (ESBL) resistance; N39.0 Urinary tract infection, site not specified; Z03.818 Encounter for observation for suspected exposure to other biological agents ruled out; Z29.89 Encounter for other specified prophylactic measures; R74.8 Abnormal levels of other serum enzymes; G25.81 Restless legs syndrome; K21.9 Gastro-esophageal reflux disease without esophagitis; R41.82 Altered mental status, unspecified; R53.1 Weakness; Z16.29 Resistance to other single specified antibiotic; Z16.23 Resistance to quinolones and fluoroquinolones; N31.2 Flaccid neuropathic bladder, not elsewhere classified